=== PATIENT | male | born 1965 | race African-American/Black ===

== ENCOUNTER 2018-06-08 08:30 | Inpatient (IN) | payer OTHER ==
--- NOTE | 2018-06-08 09:10 | HP ---
CIWA Score - CIWA Score Nausea/Vomitin Muscle Tremors: 2 Anxiety: 2 Agitation: 2 Paroxysmal Sweats: 1-Minimal Palms Moist Orientation: 0-Oriented Tacttile Disturbances: 1-Very Mild Itch/Numbness Auditory Disturbances: 1-Very Mild Visual Disturbances: 1-Very Mild Sensitivity Headache: 2-Mild CIWA-Ar Total Score: 14 Admission ROS BHS - HPI Chief Complaint: i need help to stop drinking alcohol and cocaine Allergies/Adverse Reactions: Allergies Allergy/AdvReac Type Severity Reaction Status Date / Time eggs Allergy Uncoded 06/08/18 09:10 History of Present Illness: this 52 years old male with alcohol and cocaine dependence,seeking detox, withdrawal symptom,last treatment 2017 [facility], syncope alcohol related history of iddm,hiv since 2000,non compliance did not take medications for 2 months nicotine dependence multiple admissions in detox but keep relapsing major depression on med plan for [facility] after detox weight loss also had gerd and asthma longest sobriety 5 years seen in [facility] last night Exam Limitations: No Limitations - Ebola screening Have you traveled outside of the country in the last 21 days: No Have you had contact with anyone from an Ebola affected area: No Do you have a fever: No - Review of Systems Constitutional: Loss of Appetite, Malaise, Night Sweats, Changes in sleep, Weakness, Unintentional Wgt. Loss EENT: reports: Nose Congestion Respiratory: reports: No Symptoms reported Cardiac: reports: No Symptoms Reported GI: reports: Nausea, Poor Appetite, Abdominal cramping : reports: No Symptoms Reported Musculoskeletal: reports: Back Pain, Muscle Pain Neuro: reports: Headache, Tremors Endocrine: reports: No Symptoms Reported Hematology: reports: No Symptoms Reported, Other (hiv) Psychiatric: reports: No Sypmtoms Reported, Judgement Intact, Mood/Affect Appropiate, Orientated x3, Depressed Patient History - Patient Medical History Hx Anemia: No Hx Asthma: Yes Hx Chronic Obstructive Pulmonary Disease (COPD): No Hx Cancer: No Hx Cardiac Disorders: No Hx Congestive Heart Failure: No Hx Hypertension: No Hx Hypercholesterolemia: No Hx Pacemaker: No HX Cerebrovascular Accident: No Hx Seizures: No Hx Dementia: No Hx Diabetes: Yes (iddm) Hx Gastrointestinal Disorders: No Hx Liver Disease: No Hx Genitourinary Disorders: No Hx Sexually Transmitted Disorders: No Hx Renal Disease (ESRD): No Hx Thyroid Disease: No Hx Human Immunodeficiency Virus (HIV): Yes (since 2000 non compliance did not take medications for 2 months) Hx Hepatitis C: No Hx Depression: Yes Hx Suicide Attempt: No Hx Bipolar Disorder: No Hx Schizophrenia: No Other Medical History: no suicidal,no homicidal - Patient Surgical History Past Surgical History: Yes Other Surgical History: lymph node biposy left groin 2007 benign - PPD History Previous Implant?: Yes Documented Results: Negative w/o proof Implanted On Prior R Admission?: No PPD to be Administered?: Yes - Smoking Cessation Smoking history: Current every day smoker Aproximately how many cigarettes per day: 10 Cigars Per Day: 0 Hx Chewing Tobacco Use: No Initiated information on smoking cessation: Yes 'Breaking Loose' booklet given: 06/08/18 - Substance & Tx. History Hx Alcohol Use: Yes Hx Substance Use: Yes Substance Use Type: Alcohol, Cocaine Hx Substance Use Treatment: Yes ([address] [place] [address] in [place] for 90 days) - Substances Abused Alcohol Route: Oral Frequency: Daily Amount used: 2pints of jin/6 packs of beer 12 ozs Age of first use: 11 Date of Last Use: 06/07/18 Cocaine Route: Inhalation Frequency: Daily Amount used: 80$ Age of first use: 20 Date of Last Use: 06/07/18 Family Disease History - Family Disease History Family History: Denies Admission Physical Exam S - Vital Signs Vital Signs: Vital Signs Temperature 97.1 F L 06/08/18 09:12 Pulse Rate 83 06/08/18 09:12 Respiratory Rate 20 06/08/18 09:12 Blood Pressure 136/82 06/08/18 09:12 O2 Sat by Pulse Oximetry (%) - Physical General Appearance: Yes: Moderate Distress, Tremorous, Irritable, Sweating, Anxious HEENTM: Yes: Normal ENT Inspection, CANDI, Pharynx Normal Respiratory: Yes: Lungs Clear, Normal Breath Sounds, No Respiratory Distress Neck: Yes: Within Normal Limits, Supple, Trachea in good position Breast: Yes: Within Normal Limits Cardiology: Yes: Within Normal Limits, Regular Rhythm, Regular Rate, S1, S2 Abdominal: Yes: Normal Bowel Sounds, Non Tender, Soft Genitourinary: Yes: Within Normal Limits Back: Yes: Normal Inspection, Muscle Spasm Musculoskeletal: Yes: full range of Motion, Back pain Extremities: Yes: Tremors Neurological: Yes: reports analyst II-XII NML intact, Fully Oriented, Alert, Motor Strength 5/5 Integumentary: Yes: Dry Lymphatic: Yes: Within Normal Limits - Diagnostic (1) Alcohol dependence with uncomplicated withdrawal Current Visit: Yes Status: Acute (2) Cocaine dependence Current Visit: Yes Status: Acute (3) HIV (human immunodeficiency virus infection) Current Visit: Yes Status: Acute (4) IDDM (insulin dependent diabetes mellitus) Current Visit: Yes Status: Acute (5) Weight loss Current Visit: Yes Status: Acute (6) GERD (gastroesophageal reflux disease) Current Visit: Yes Status: Acute (7) Nicotine dependence Current Visit: Yes Status: Acute (8) Asthma Current Visit: Yes Status: Acute (9) Depression Current Visit: Yes Status: Acute Cleared for Admission BHS - Detox or Rehab S Level of Care: Medically Managed Detox Regimen/Protocol: Librium
[2018-06-08] MEDS ORDERED: guaiFENesin/D-METHORPHAN HB 10 ML UNIT-DOSE CUPS PO PRN (09:33)
[2018-06-08] MEDS ORDERED: LOPERAMIDE HCL 2 MG CAPSULE PO PRN (09:33)
[2018-06-08] MEDS ORDERED: P-EPHED 60MG/TRIPROLIDI 2.5MG TABLET PO PRN (09:33)
[2018-06-08] MEDS ORDERED: hydrOXYzine PAMOATE 50 MG CAPSULE (FP) PO PRN (09:33)
[2018-06-08] MEDS ORDERED: IBUPROFEN 400 MG TABLET (FP) PO PRN (09:33)
[2018-06-08] MEDS ORDERED: MAGNESIUM HYDROX 2400MG/30ML ORAL SUSPENSION 30 ML CUP PO PRN (09:33)
[2018-06-08] MEDS ORDERED: MAGNESIUM CITRATE 300 ML BOTTLE PO PRN (09:33)
[2018-06-08] MEDS ORDERED: MAG HYDROX/AL HYDROX/SIMETH 30 ML UNIT-DOSE CUP PO PRN (09:33)
[2018-06-08] MEDS ORDERED: chlordiazePOXIDE HCL 25 MG CAPSULE PO PRN (09:33)
[2018-06-08] MEDS ORDERED: ACETAMINOPHEN 325 MG TABLET (FP) PO PRN (09:33)
[2018-06-08] MEDS ORDERED: MENTHOL/PHENOL 1 EACH UD MM PRN (09:33)
[2018-06-08 09:35] VITALS: BMI 30.4
[2018-06-08] MEDS ORDERED: ALBUTEROL SO4 8 GM HFA INHALER IH PRN (10:48)
--- NOTE | 2018-06-08 11:54 | CONSULT ---
[facility] Psychiatric Consult - Data Date of interview: 06/08/18 Admission source: [facility] Identifying data: Patient is a 52 year old single male, without children, unemployed, domiciled, and is supported by [facility] benefits. This is patient's first admission to detox at [facility]. Patient admitted to for alcohol and cocaine dependence. Substance Abuse History: - Smoking Cessation. Smoking history: Current every day smoker. Aproximately how many cigarettes per day: 10. Cigars Per Day: 0. Hx Chewing Tobacco Use: No. Initiated information on smoking cessation: Yes. ' Breaking Loose' booklet given: 06/08/18. - Substance & Tx. History. Hx Alcohol Use: Yes. Hx Substance Use: Yes. Substance Use Type: Alcohol, Cocaine. Hx Substance Use Treatment: Yes ([address] [place] [address] in [place] for 90 days ). - Substances Abused. Alcohol. Route: Oral. Frequency: Daily. Amount used: 2pints of jin/6 packs of beer 12 ozs. Age of first use: 11. Date of Last Use: 06/07/18. Cocaine. Route: Inhalation. Frequency: Daily. Amount used: 80$. Age of first use: 20. Date of Last Use: 06/07/18 Medical History: Asthma, HIV Psychiatric History: Patient's first psychiatric contact was in 2007 at [facility] after he reported having difficulty accepting that he was HIV +. Diagnosis of MDD. He contines to receive outpatient psychiatric care at [facility]. He is prescribed Effexor ER 150mg + lamictal 25mg + Ambien 10mg. Pharmacy claims reviewed. Most recent electronic prescription was sent to patient's pharmacy on 05/16/18. He reports compliance to his medication regime. Patient denies h/o suicide attempt. Physical/Sexual Abuse/Trauma History: denies. Mental Status Exam - Mental Status Exam Alert and Oriented to: Time, Place, Person Cognitive Function: Good Patient Appearance: Well Groomed Mood: Sad, Euthymic Affect: Mood Congruent Patient Behavior: Appropriate, Cooperative Speech Pattern: Clear, Appropriate Voice Loudness: Normal Thought Process: Intact, Goal Oriented Thought Disorder: Not Present Hallucinations: Denies Suicidal Ideation: Denies Homicidal Ideation: Denies Insight/Judgement: Poor Sleep: Poorly Appetite: Fair Muscle strength/Tone: Normal Gait/Station: Normal Psychiatric Findings - Problem List ([place] 1, 2,3) (1) MDD (major depressive disorder) Current Visit: Yes Status: Chronic (2) Alcohol dependence with uncomplicated withdrawal Current Visit: Yes Status: Acute (3) Cocaine dependence Current Visit: Yes Status: Acute (4) Nicotine dependence Current Visit: Yes Status: Chronic - Initial Treatment Plan Initial Treatment Plan: Psychoeducation provided. Detoxification in progress. Will order Effexor 150mg ER + lamictal 25mg + ambien 10mg. Benefits and side effects discussed. Verbal consent given.
[2018-06-08] MEDS: chlordiazePOXIDE HCL 25 MG CAPSULE PO SCH ×3 (11:55→22:16)
[2018-06-08] MEDS: PRENATAL VITAMINS W/ FOLIC ACID TABLET (FP) PO SCH (11:55)
[2018-06-08] MEDS ORDERED: VENLAFAXINE HCL 150 MG E.R. CAPSULE PO SCH (12:00)
[2018-06-08] MEDS ORDERED: lamoTRIgine 25 MG TABLET PO SCH (12:00)
[2018-06-08] MEDS: NICOTINE 21 MG/24 HOURS TOPICAL PATCH TD SCH (12:07)
--- NOTE | 2018-06-08 15:10 | EKG ---
Test Reason : Blood Pressure : / mmHG Vent. Rate : 075 BPM Atrial Rate : 075 BPM P-R Int : 156 ms QRS Dur : 104 ms QT Int : 376 ms P-R-T Axes : 063 105 -33 degrees QTc Int : 419 ms NORMAL SINUS RHYTHM RIGHTWARD AXIS NONSPECIFIC T WAVE ABNORMALITY ABNORMAL ECG NO PREVIOUS ECGS AVAILABLE Confirmed by SARAH CORREA, BEAR ([id number]) on 06/08/2018 3:10:11 PM Referred By: Confirmed By:BEAR SMITH MD
[2018-06-08 21:07] LABS: URINE APPEARANCE TURBID; URINE BILIRUBIN NEGATIVE (<2.0 mg/dL); URINE COLOR YELLOW; URINE GLUCOSE (UA) 2+ (NEGATIVE); URINE KETONE NEGATIVE (NEGATIVE); URINE LEUK ESTERASE NEGATIVE (NEGATIVE); URINE NITRITE NEGATIVE (NEGATIVE); URINE PROTEIN 2+ (NEGATIVE)
[2018-06-08] MEDS: INSULIN (LEVEMIR) 100 UNITS/ML UNITS SQ SCH (21:18)
[2018-06-08] MEDS ORDERED: MELATONIN 5 MG TABLETS PO PRN (22:00)
[2018-06-08] MEDS ORDERED: INSULIN (LEVEMIR) 100 UNITS/ML UNITS SQ SCH (22:00)
[2018-06-08] MEDS: ZOLPIDEM TARTRATE 5 MG TABLET PO PRN (22:15)
[2018-06-08] MEDS: THIAMINE HCL 100 MG TABLET (FP) PO SCH (22:15)
[2018-06-08 22:31] LABS: URINE MUCUS FEW
[2018-06-09] MEDS: chlordiazePOXIDE HCL 25 MG CAPSULE PO SCH ×4 (06:46→22:54)
[2018-06-09] MEDS: PATIENT'S OWN MEDICATION (NON-FORMULARY) (Sitagliptin Phos/Metformin Hcl [Janumet Xr 100-1 PO SCH (07:48)
[2018-06-09] MEDS: NICOTINE 21 MG/24 HOURS TOPICAL PATCH TD SCH (10:04)
[2018-06-09] MEDS: LAMOTRIGINE 25 MG PO SCH (10:04)
[2018-06-09] MEDS: VENLAFAXINE HCL 150 MG PO SCH (10:04)
[2018-06-09] MEDS: FENOFIBRIC ACID 135 MG CAP PO SCH (10:04)
[2018-06-09] MEDS: MONTELUKAST NA 10 MG TABLET PO SCH (10:04)
[2018-06-09] MEDS: PRENATAL VITAMINS W/ FOLIC ACID TABLET (FP) PO SCH (10:04)
[2018-06-09] MEDS: NICOTINE POLACRILEX 2 MG GUM BUC PRN ×3 (10:33→21:30)
[2018-06-09 10:42] LABS: HEMOGLOBIN 13.8 GM/dL (11.7-16.9); MCH 31.5 pg (25.7-33.7); MCHC 32.8 g/dl (32.0-35.9); MEAN CELL VOLUME 96.2 fl (80-96); MEAN PLT VOLUME 9.4 fl (7.5-11.1); PLATELET COUNT 192 K/MM3 (134-434); RBC 4.37 M/mm3 (4.00-5.60); WHITE BLOOD COUNT 3.6 K/mm3 (4.0-10.0)
[2018-06-09 10:50] LABS: ALBUMIN 3.6 g/dl (3.4-5.0); ALK PHOS 109 U/L (45-117); ANION GAP 12 MMOL/L (8-16); BILIRUBIN,TOTAL 0.4 mg/dL (0.2-1); BLOOD UREA NITROGEN 14 mg/dL (7-18); CALCIUM 8.5 mg/dL (8.5-10.1); CHLORIDE 102 mmol/L (98-107); CO2 23 mmol/L (21-32); CREATININE 0.9 mg/dL (0.55-1.3); GLUCOSE,RANDOM 268 mg/dL (74-106); POTASSIUM 3.8 mmol/L (3.5-5.1); SGOT/AST 20 U/L (15-37); SGPT/ALT 20 U/L (13-61); SODIUM 137 mmol/L (136-145); TOT PROT 7.4 g/dl (6.4-8.2)
--- NOTE | 2018-06-09 13:39 | PN ---
S CIWA - CIWA Score Nausea/Vomitin Muscle Tremors: 4-Moderate,w/Arms Extend Anxiety: 4-Mod. Anxious/Guarded Agitation: 4-Moderately Restless Paroxysmal Sweats: 3 Orientation: 0-Oriented Tacttile Disturbances: 0-None Auditory Disturbances: 0-None Visual Disturbances: 0-None Headache: 0-None Present CIWA-Ar Total Score: 17 BHS Progress Note (SOAP) Subjective: Chills, fatigue, tremor, interrupted sleep. Patient requesting regular diet stating he doesn't want diabetic diet. Objective: 06/09/18 13:36 Last Vital Signs Temp Pulse Resp BP Pulse Ox 97.1 F L 85 17 125/75 06/09/18 09:48 06/09/18 09:48 06/09/18 09:48 06/09/18 09:48 Laboratory Tests 06/08/18 06/08/18 06/08/18 10:31 14:37 20:45 WBC RBC Hgb Hct MCV MCH MCHC RDW Plt Count MPV Sodium Potassium Chloride Carbon Dioxide Anion Gap BUN Creatinine Creat Clearance w eGFR POC Glucometer 250 211 Random Glucose Calcium Total Bilirubin AST ALT Alkaline Phosphatase Total Protein Albumin Urine Color Yellow Urine Appearance Turbid Urine pH 5.0 Ur Specific [place] 1.030 Urine Protein 2+ H Urine Glucose (UA) 2+ H Urine Ketones Negative Urine Blood Negative Urine Nitrite Negative Urine Bilirubin Negative Urine Urobilinogen 2.0 Ur Leukocyte Esterase Negative Urine WBC (Auto) 7 Urine RBC (Auto) 3 Urine Mucus Few RPR Titer 06/09/18 06/09/18 06/09/18 05:40 05:40 05:40 WBC 3.6 L RBC 4.37 Hgb 13.8 Hct 42.0 MCV 96.2 H MCH 31.5 MCHC 32.8 RDW 14.0 Plt Count 192 MPV 9.4 Sodium 137 Potassium 3.8 Chloride 102 Carbon Dioxide 23 Anion Gap 12 BUN 14 Creatinine 0.9 Creat Clearance w eGFR > 60 POC Glucometer Random Glucose 268 H Calcium 8.5 Total Bilirubin 0.4 AST 20 ALT 20 Alkaline Phosphatase 109 Total Protein 7.4 Albumin 3.6 Urine Color Urine Appearance Urine pH Ur Specific [place] Urine Protein Urine Glucose (UA) Urine Ketones Urine Blood Urine Nitrite Urine Bilirubin Urine Urobilinogen Ur Leukocyte Esterase Urine WBC (Auto) Urine RBC (Auto) Urine Mucus RPR Titer Nonreactive 06/09/18 07:37 WBC RBC Hgb Hct MCV MCH MCHC RDW Plt Count MPV Sodium Potassium Chloride Carbon Dioxide Anion Gap BUN Creatinine Creat Clearance w eGFR POC Glucometer 185 Random Glucose Calcium Total Bilirubin AST ALT Alkaline Phosphatase Total Protein Albumin Urine Color Urine Appearance Urine pH Ur Specific [place] Urine Protein Urine Glucose (UA) Urine Ketones Urine Blood Urine Nitrite Urine Bilirubin Urine Urobilinogen Ur Leukocyte Esterase Urine WBC (Auto) Urine RBC (Auto) Urine Mucus RPR Titer Labs reviewed: elevated glucose and abnormal UA Assessment: 06/09/18 13:36 Withdrawal symptoms Noted with hyperglycemia and abnormal UA Plan: Continue detox Hyperglycemia secondary to DMT2: continue diabetic regimen, encouraged diabetic diet and to avoid sugary intake Abnormal UA: encouraged PO water intake, repeat UA
[2018-06-09] MEDS ORDERED: INSULIN (LEVEMIR) 100 UNITS/ML UNITS SQ ONE (21:14)
[2018-06-09] MEDS: INSULIN (LEVEMIR) 100 UNITS/ML UNITS SQ SCH (21:31)
[2018-06-09] MEDS: THIAMINE HCL 100 MG TABLET (FP) PO SCH (22:53)
[2018-06-09] MEDS: ZOLPIDEM TARTRATE 5 MG TABLET PO PRN (22:53)
[2018-06-10] MEDS: chlordiazePOXIDE HCL 25 MG CAPSULE PO SCH (06:16)
[2018-06-10] MEDS: PATIENT'S OWN MEDICATION (NON-FORMULARY) (Sitagliptin Phos/Metformin Hcl [Janumet Xr 100-1 PO SCH (07:17)
[2018-06-10] MEDS: MONTELUKAST NA 10 MG TABLET PO SCH (10:10)
[2018-06-10] MEDS: LAMOTRIGINE 25 MG PO SCH (10:10)
[2018-06-10] MEDS: PRENATAL VITAMINS W/ FOLIC ACID TABLET (FP) PO SCH (10:10)
[2018-06-10] MEDS: VENLAFAXINE HCL 150 MG PO SCH (10:11)
[2018-06-10] MEDS: FENOFIBRIC ACID 135 MG CAP PO SCH (10:11)
[2018-06-10] MEDS: NICOTINE POLACRILEX 2 MG GUM BUC PRN ×3 (10:12→18:49)
[2018-06-10] MEDS: chlordiazePOXIDE 5 MG CAPSULE PO SCH ×3 (10:12→22:29)
--- NOTE | 2018-06-10 13:39 | PN ---
[facility] CIWA - CIWA Score Nausea/Vomitin-No Nausea/No Vomiting Muscle Tremors: 2 Anxiety: 3 Agitation: 3 Paroxysmal Sweats: 2 Orientation: 0-Oriented Tacttile Disturbances: 1-Very Mild Itch/Numbness Auditory Disturbances: 0-None Visual Disturbances: 1-Very Mild Sensitivity Headache: 0-None Present CIWA-Ar Total Score: 12 S Progress Note (SOAP) Subjective: fatigue, irritable, interrupted sleep, body aches Objective: 06/10/18 13:35 Vital Signs Temperature 96.7 F L 06/10/18 09:16 Pulse Rate 72 06/10/18 09:16 Respiratory Rate 18 06/10/18 09:16 Blood Pressure 121/86 06/10/18 09:16 O2 Sat by Pulse Oximetry (%) Laboratory Last Values WBC 3.6 K/mm3 (4.0-10.0) L 06/09/18 05:40 RBC 4.37 M/mm3 (4.00-5.60) 06/09/18 05:40 Hgb 13.8 GM/dL (11.7-16.9) 06/09/18 05:40 Hct 42.0 % (35.4-49) 06/09/18 05:40 MCV 96.2 fl (80-96) H 06/09/18 05:40 MCH 31.5 pg (25.7-33.7) 06/09/18 05:40 MCHC 32.8 g/dl (32.0-35.9) 06/09/18 05:40 RDW 14.0 % (11.9-15.9) 06/09/18 05:40 Plt Count 192 K/MM3 (134-434) 06/09/18 05:40 MPV 9.4 fl (7.5-11.1) 06/09/18 05:40 Sodium 137 mmol/L (136-145) 06/09/18 05:40 Potassium 3.8 mmol/L (3.5-5.1) 06/09/18 05:40 Chloride 102 mmol/L (98-107) 06/09/18 05:40 Carbon Dioxide 23 mmol/L (21-32) 06/09/18 05:40 Anion Gap 12 MMOL/L (8-16) 06/09/18 05:40 BUN 14 mg/dL (7-18) 06/09/18 05:40 Creatinine 0.9 mg/dL (0.55-1.3) 06/09/18 05:40 Creat Clearance w eGFR > 60 (>60) 06/09/18 05:40 POC Glucometer 167 UNITS (80-120) 06/10/18 11:45 Random Glucose 268 mg/dL (74-106) H 06/09/18 05:40 Calcium 8.5 mg/dL (8.5-10.1) 06/09/18 05:40 Total Bilirubin 0.4 mg/dL (0.2-1) 06/09/18 05:40 AST 20 U/L (15-37) 06/09/18 05:40 ALT 20 U/L (13-61) 06/09/18 05:40 Alkaline Phosphatase 109 U/L (45-117) 06/09/18 05:40 Total Protein 7.4 g/dl (6.4-8.2) 06/09/18 05:40 Albumin 3.6 g/dl (3.4-5.0) 06/09/18 05:40 Urine Color Yellow 06/08/18 14:37 Urine Appearance Turbid 06/08/18 14:37 Urine pH 5.0 (5.0-8.0) 06/08/18 14:37 Ur Specific [place] 1.030 (1.010-1.035) 06/08/18 14:37 Urine Protein 2+ (NEGATIVE) H 06/08/18 14:37 Urine Glucose (UA) 2+ (NEGATIVE) H 06/08/18 14:37 Urine Ketones Negative (NEGATIVE) 06/08/18 14:37 Urine Blood Negative (NEGATIVE) 06/08/18 14:37 Urine Nitrite Negative (NEGATIVE) 06/08/18 14:37 Urine Bilirubin Negative (<2.0 mg/dL) 06/08/18 14:37 Urine Urobilinogen 2.0 mg/dL (0.2-1.0) 06/08/18 14:37 Ur Leukocyte Esterase Negative (NEGATIVE) 06/08/18 14:37 Urine WBC (Auto) 7 /hpf (3-5) 06/08/18 14:37 Urine RBC (Auto) 3 /hpf (0-3) 06/08/18 14:37 Urine Mucus Few 06/08/18 14:37 RPR Titer Nonreactive (NONREACTIVE) 06/09/18 05:40 Aox3 no distress no adventitious breath sounds full rom ambulatory Assessment: 06/10/18 13:37 withdrawal sx Plan: increase po fluids continue detox continue to monitor
--- NOTE | 2018-06-10 19:05 | PN ---
BHS Progress Note Note: Pt's nicotine gum switched to the 4mg strength because pt states the 2mg was not helping. Declines nicotine patch because it makes him itch
[2018-06-10] MEDS: NICOTINE POLACRILEX 4 MG GUM BUC PRN (21:40)
[2018-06-10] MEDS: THIAMINE HCL 100 MG TABLET (FP) PO SCH (22:29)
[2018-06-10] MEDS: ZOLPIDEM TARTRATE 5 MG TABLET PO PRN (22:29)
[2018-06-10] MEDS: INSULIN (LEVEMIR) 100 UNITS/ML UNITS SQ SCH (22:32)
[2018-06-11] MEDS: NICOTINE POLACRILEX 4 MG GUM BUC PRN ×2 (06:24→16:45)
[2018-06-11] MEDS: PATIENT'S OWN MEDICATION (NON-FORMULARY) (Sitagliptin Phos/Metformin Hcl [Janumet Xr 100-1 PO SCH (06:24)
[2018-06-11] MEDS: chlordiazePOXIDE 5 MG CAPSULE PO SCH (06:24)
[2018-06-11] MEDS: VENLAFAXINE HCL 150 MG PO SCH (10:24)
[2018-06-11] MEDS: MONTELUKAST NA 10 MG TABLET PO SCH (10:24)
[2018-06-11] MEDS: PRENATAL VITAMINS W/ FOLIC ACID TABLET (FP) PO SCH (10:24)
[2018-06-11] MEDS: LAMOTRIGINE 25 MG PO SCH (10:24)
[2018-06-11] MEDS: FENOFIBRIC ACID 135 MG CAP PO SCH (10:24)
[2018-06-11] MEDS: chlordiazePOXIDE HCL 10 MG CAPSULE PO SCH ×3 (10:25→22:57)
[2018-06-11] MEDS ORDERED: Insulin (LOG) Aspart 100 UNITS/ML VIAL SQ ONE (11:30)
[2018-06-11] MEDS ORDERED: INSULIN SLIDING SCALE (NOVOLOG) 1 VIAL SQ ONE (13:23)
[2018-06-11] MEDS: INSULIN SLIDING SCALE (NOVOLOG) 1 VIAL SQ SCH (16:26)
--- NOTE | 2018-06-11 17:04 | PN ---
BHS Progress Note (SOAP) Subjective: Chills, interrupted sleep Objective: 06/11/18 17:02 Last Vital Signs Temp Pulse Resp BP Pulse Ox 97.7 F 85 18 109/73 06/11/18 13:40 06/11/18 13:40 06/11/18 13:40 06/11/18 13:40 Laboratory Tests 06/08/18 06/08/18 06/08/18 10:31 14:37 20:45 WBC RBC Hgb Hct MCV MCH MCHC RDW Plt Count MPV Sodium Potassium Chloride Carbon Dioxide Anion Gap BUN Creatinine Creat Clearance w eGFR POC Glucometer 250 211 Random Glucose Calcium Total Bilirubin AST ALT Alkaline Phosphatase Total Protein Albumin Urine Color Yellow Urine Appearance Turbid Urine pH 5.0 Ur Specific [place] 1.030 Urine Protein 2+ H Urine Glucose (UA) 2+ H Urine Ketones Negative Urine Blood Negative Urine Nitrite Negative Urine Bilirubin Negative Urine Urobilinogen 2.0 Ur Leukocyte Esterase Negative Urine WBC (Auto) 7 Urine RBC (Auto) 3 Urine Mucus Few RPR Titer 06/09/18 06/09/18 06/09/18 05:40 05:40 05:40 WBC 3.6 L RBC 4.37 Hgb 13.8 Hct 42.0 MCV 96.2 H MCH 31.5 MCHC 32.8 RDW 14.0 Plt Count 192 MPV 9.4 Sodium 137 Potassium 3.8 Chloride 102 Carbon Dioxide 23 Anion Gap 12 BUN 14 Creatinine 0.9 Creat Clearance w eGFR > 60 POC Glucometer Random Glucose 268 H Calcium 8.5 Total Bilirubin 0.4 AST 20 ALT 20 Alkaline Phosphatase 109 Total Protein 7.4 Albumin 3.6 Urine Color Urine Appearance Urine pH Ur Specific [place] Urine Protein Urine Glucose (UA) Urine Ketones Urine Blood Urine Nitrite Urine Bilirubin Urine Urobilinogen Ur Leukocyte Esterase Urine WBC (Auto) Urine RBC (Auto) Urine Mucus RPR Titer Nonreactive 06/09/18 06/09/18 06/10/18 07:37 21:01 07:13 WBC RBC Hgb Hct MCV MCH MCHC RDW Plt Count MPV Sodium Potassium Chloride Carbon Dioxide Anion Gap BUN Creatinine Creat Clearance w eGFR POC Glucometer 185 234 161 Random Glucose Calcium Total Bilirubin AST ALT Alkaline Phosphatase Total Protein Albumin Urine Color Urine Appearance Urine pH Ur Specific [place] Urine Protein Urine Glucose (UA) Urine Ketones Urine Blood Urine Nitrite Urine Bilirubin Urine Urobilinogen Ur Leukocyte Esterase Urine WBC (Auto) Urine RBC (Auto) Urine Mucus RPR Titer 06/10/18 06/10/18 06/10/18 11:45 16:27 21:51 WBC RBC Hgb Hct MCV MCH MCHC RDW Plt Count MPV Sodium Potassium Chloride Carbon Dioxide Anion Gap BUN Creatinine Creat Clearance w eGFR POC Glucometer 167 213 251 Random Glucose Calcium Total Bilirubin AST ALT Alkaline Phosphatase Total Protein Albumin Urine Color Urine Appearance Urine pH Ur Specific [place] Urine Protein Urine Glucose (UA) Urine Ketones Urine Blood Urine Nitrite Urine Bilirubin Urine Urobilinogen Ur Leukocyte Esterase Urine WBC (Auto) Urine RBC (Auto) Urine Mucus RPR Titer 06/11/18 06/11/18 06/11/18 06:16 11:08 16:23 WBC RBC Hgb Hct MCV MCH MCHC RDW Plt Count MPV Sodium Potassium Chloride Carbon Dioxide Anion Gap BUN Creatinine Creat Clearance w eGFR POC Glucometer 202 231 167 Random Glucose Calcium Total Bilirubin AST ALT Alkaline Phosphatase Total Protein Albumin Urine Color Urine Appearance Urine pH Ur Specific [place] Urine Protein Urine Glucose (UA) Urine Ketones Urine Blood Urine Nitrite Urine Bilirubin Urine Urobilinogen Ur Leukocyte Esterase Urine WBC (Auto) Urine RBC (Auto) Urine Mucus RPR Titer Labs reviewed Assessment: 06/11/18 17:02 Withdrawal symptoms Plan: Continue detox Encouraged PO water intake Patient with DMT2 with hyperglycemia. As per patient, he takes levemir at home along with insulin humalog sliding scale coverage ac meals starting at FS of 150 in which he gets 2 units. Sliding scale insulin coverage ordered.
[2018-06-11] MEDS: INSULIN (LEVEMIR) 100 UNITS/ML UNITS SQ SCH (21:54)
[2018-06-11] MEDS: ZOLPIDEM TARTRATE 5 MG TABLET PO PRN (21:57)
[2018-06-11] MEDS: THIAMINE HCL 100 MG TABLET (FP) PO SCH (21:57)
[2018-06-12] MEDS: chlordiazePOXIDE HCL 10 MG CAPSULE PO SCH (06:56)
[2018-06-12] MEDS: INSULIN SLIDING SCALE (NOVOLOG) 1 VIAL SQ SCH ×3 (07:54→17:45)
[2018-06-12] MEDS: PATIENT'S OWN MEDICATION (NON-FORMULARY) (Sitagliptin Phos/Metformin Hcl [Janumet Xr 100-1 PO SCH (07:54)
[2018-06-12] MEDS: NICOTINE POLACRILEX 4 MG GUM BUC PRN ×3 (09:40→20:35)
[2018-06-12] MEDS: PRENATAL VITAMINS W/ FOLIC ACID TABLET (FP) PO SCH (10:08)
[2018-06-12] MEDS: FENOFIBRIC ACID 135 MG CAP PO SCH (10:09)
[2018-06-12] MEDS: LAMOTRIGINE 25 MG PO SCH (10:09)
[2018-06-12] MEDS: MONTELUKAST NA 10 MG TABLET PO SCH (10:10)
[2018-06-12] MEDS: VENLAFAXINE HCL 150 MG PO SCH (13:13)
--- NOTE | 2018-06-12 13:36 | PN ---
S Progress Note (SOAP) Subjective: Chills, interrupted sleep. Patient can be discharged on 06/13 or 06/14. He requested to be discharged on 06/14 so that he can have time to make outside follow up arrangement with the help of his counselor from [facility]. Objective: 06/12/18 13:35 Last Vital Signs Temp Pulse Resp BP Pulse Ox 98.1 F 79 18 120/73 06/12/18 13:20 06/12/18 13:20 06/12/18 13:20 06/12/18 13:20 Laboratory Tests 06/08/18 06/08/18 06/08/18 10:31 14:37 20:45 WBC RBC Hgb Hct MCV MCH MCHC RDW Plt Count MPV Sodium Potassium Chloride Carbon Dioxide Anion Gap BUN Creatinine Creat Clearance w eGFR POC Glucometer 250 211 Random Glucose Calcium Total Bilirubin AST ALT Alkaline Phosphatase Total Protein Albumin Urine Color Yellow Urine Appearance Turbid Urine pH 5.0 Ur Specific [place] 1.030 Urine Protein 2+ H Urine Glucose (UA) 2+ H Urine Ketones Negative Urine Blood Negative Urine Nitrite Negative Urine Bilirubin Negative Urine Urobilinogen 2.0 Ur Leukocyte Esterase Negative Urine WBC (Auto) 7 Urine RBC (Auto) 3 Urine Mucus Few RPR Titer 06/09/18 06/09/18 06/09/18 05:40 05:40 05:40 WBC 3.6 L RBC 4.37 Hgb 13.8 Hct 42.0 MCV 96.2 H MCH 31.5 MCHC 32.8 RDW 14.0 Plt Count 192 MPV 9.4 Sodium 137 Potassium 3.8 Chloride 102 Carbon Dioxide 23 Anion Gap 12 BUN 14 Creatinine 0.9 Creat Clearance w eGFR > 60 POC Glucometer Random Glucose 268 H Calcium 8.5 Total Bilirubin 0.4 AST 20 ALT 20 Alkaline Phosphatase 109 Total Protein 7.4 Albumin 3.6 Urine Color Urine Appearance Urine pH Ur Specific [place] Urine Protein Urine Glucose (UA) Urine Ketones Urine Blood Urine Nitrite Urine Bilirubin Urine Urobilinogen Ur Leukocyte Esterase Urine WBC (Auto) Urine RBC (Auto) Urine Mucus RPR Titer Nonreactive 06/09/18 06/09/18 06/10/18 07:37 21:01 07:13 WBC RBC Hgb Hct MCV MCH MCHC RDW Plt Count MPV Sodium Potassium Chloride Carbon Dioxide Anion Gap BUN Creatinine Creat Clearance w eGFR POC Glucometer 185 234 161 Random Glucose Calcium Total Bilirubin AST ALT Alkaline Phosphatase Total Protein Albumin Urine Color Urine Appearance Urine pH Ur Specific [place] Urine Protein Urine Glucose (UA) Urine Ketones Urine Blood Urine Nitrite Urine Bilirubin Urine Urobilinogen Ur Leukocyte Esterase Urine WBC (Auto) Urine RBC (Auto) Urine Mucus RPR Titer 06/10/18 06/10/18 06/10/18 11:45 16:27 21:51 WBC RBC Hgb Hct MCV MCH MCHC RDW Plt Count MPV Sodium Potassium Chloride Carbon Dioxide Anion Gap BUN Creatinine Creat Clearance w eGFR POC Glucometer 167 213 251 Random Glucose Calcium Total Bilirubin AST ALT Alkaline Phosphatase Total Protein Albumin Urine Color Urine Appearance Urine pH Ur Specific [place] Urine Protein Urine Glucose (UA) Urine Ketones Urine Blood Urine Nitrite Urine Bilirubin Urine Urobilinogen Ur Leukocyte Esterase Urine WBC (Auto) Urine RBC (Auto) Urine Mucus RPR Titer 06/11/18 06/11/18 06/11/18 06:16 11:08 16:23 WBC RBC Hgb Hct MCV MCH MCHC RDW Plt Count MPV Sodium Potassium Chloride Carbon Dioxide Anion Gap BUN Creatinine Creat Clearance w eGFR POC Glucometer 202 231 167 Random Glucose Calcium Total Bilirubin AST ALT Alkaline Phosphatase Total Protein Albumin Urine Color Urine Appearance Urine pH Ur Specific [place] Urine Protein Urine Glucose (UA) Urine Ketones Urine Blood Urine Nitrite Urine Bilirubin Urine Urobilinogen Ur Leukocyte Esterase Urine WBC (Auto) Urine RBC (Auto) Urine Mucus RPR Titer 06/11/18 06/12/18 20:54 11:36 WBC RBC Hgb Hct MCV MCH MCHC RDW Plt Count MPV Sodium Potassium Chloride Carbon Dioxide Anion Gap BUN Creatinine Creat Clearance w eGFR POC Glucometer 330 219 Random Glucose Calcium Total Bilirubin AST ALT Alkaline Phosphatase Total Protein Albumin Urine Color Urine Appearance Urine pH Ur Specific [place] Urine Protein Urine Glucose (UA) Urine Ketones Urine Blood Urine Nitrite Urine Bilirubin Urine Urobilinogen Ur Leukocyte Esterase Urine WBC (Auto) Urine RBC (Auto) Urine Mucus RPR Titer Labs reviewed Assessment: 06/12/18 13:35 Withdrawal symptoms Plan: Continue detox Encouraged PO water intake
[2018-06-12] MEDS ORDERED: INSULIN SLIDING SCALE (NOVOLOG) 1 VIAL SQ ONE (16:46)
[2018-06-12] MEDS: INSULIN (LEVEMIR) 100 UNITS/ML UNITS SQ SCH (22:01)
[2018-06-12] MEDS: THIAMINE HCL 100 MG TABLET (FP) PO SCH (22:12)
[2018-06-12] MEDS: ZOLPIDEM TARTRATE 5 MG TABLET PO PRN (22:12)
[2018-06-13] MEDS: PATIENT'S OWN MEDICATION (NON-FORMULARY) (Sitagliptin Phos/Metformin Hcl [Janumet Xr 100-1 PO SCH (07:10)
[2018-06-13] MEDS: INSULIN SLIDING SCALE (NOVOLOG) 1 VIAL SQ SCH ×3 (07:10→16:47)
[2018-06-13] MEDS ORDERED: INSULIN SLIDING SCALE (NOVOLOG) 1 VIAL SQ ONE (07:14)
[2018-06-13] MEDS: VENLAFAXINE HCL 150 MG PO SCH (10:37)
[2018-06-13] MEDS: LAMOTRIGINE 25 MG PO SCH (10:37)
[2018-06-13] MEDS: PRENATAL VITAMINS W/ FOLIC ACID TABLET (FP) PO SCH (10:37)
[2018-06-13] MEDS: MONTELUKAST NA 10 MG TABLET PO SCH (10:37)
[2018-06-13] MEDS: FENOFIBRIC ACID 135 MG CAP PO SCH (10:38)
[2018-06-13] MEDS: NICOTINE POLACRILEX 4 MG GUM BUC PRN ×3 (10:39→22:58)
[2018-06-13] MEDS ORDERED: COLLOIDAL OATMEAL 1 BAR EACH TP PRN (10:41)
[2018-06-13] MEDS: AMMONIUM LACTATE 12% LOTION 225 GM BOTTLE TP SCH ×2 (12:15→23:00)
--- NOTE | 2018-06-13 13:31 | PN ---
S Progress Note (SOAP) Subjective: Anxious, sweating, interrupted sleep Objective: 06/13/18 13:30 Last Vital Signs Temp Pulse Resp BP Pulse Ox 98.4 F 84 20 96/62 06/13/18 07:43 06/13/18 07:43 06/13/18 07:43 06/13/18 07:43 Hypotension noted Laboratory Tests 06/08/18 06/08/18 06/08/18 10:31 14:37 20:45 WBC RBC Hgb Hct MCV MCH MCHC RDW Plt Count MPV Sodium Potassium Chloride Carbon Dioxide Anion Gap BUN Creatinine Creat Clearance w eGFR POC Glucometer 250 211 Random Glucose Calcium Total Bilirubin AST ALT Alkaline Phosphatase Total Protein Albumin Urine Color Yellow Urine Appearance Turbid Urine pH 5.0 Ur Specific [place] 1.030 Urine Protein 2+ H Urine Glucose (UA) 2+ H Urine Ketones Negative Urine Blood Negative Urine Nitrite Negative Urine Bilirubin Negative Urine Urobilinogen 2.0 Ur Leukocyte Esterase Negative Urine WBC (Auto) 7 Urine RBC (Auto) 3 Urine Mucus Few RPR Titer 06/09/18 06/09/18 06/09/18 05:40 05:40 05:40 WBC 3.6 L RBC 4.37 Hgb 13.8 Hct 42.0 MCV 96.2 H MCH 31.5 MCHC 32.8 RDW 14.0 Plt Count 192 MPV 9.4 Sodium 137 Potassium 3.8 Chloride 102 Carbon Dioxide 23 Anion Gap 12 BUN 14 Creatinine 0.9 Creat Clearance w eGFR > 60 POC Glucometer Random Glucose 268 H Calcium 8.5 Total Bilirubin 0.4 AST 20 ALT 20 Alkaline Phosphatase 109 Total Protein 7.4 Albumin 3.6 Urine Color Urine Appearance Urine pH Ur Specific [place] Urine Protein Urine Glucose (UA) Urine Ketones Urine Blood Urine Nitrite Urine Bilirubin Urine Urobilinogen Ur Leukocyte Esterase Urine WBC (Auto) Urine RBC (Auto) Urine Mucus RPR Titer Nonreactive 06/09/18 06/09/18 06/10/18 07:37 21:01 07:13 WBC RBC Hgb Hct MCV MCH MCHC RDW Plt Count MPV Sodium Potassium Chloride Carbon Dioxide Anion Gap BUN Creatinine Creat Clearance w eGFR POC Glucometer 185 234 161 Random Glucose Calcium Total Bilirubin AST ALT Alkaline Phosphatase Total Protein Albumin Urine Color Urine Appearance Urine pH Ur Specific [place] Urine Protein Urine Glucose (UA) Urine Ketones Urine Blood Urine Nitrite Urine Bilirubin Urine Urobilinogen Ur Leukocyte Esterase Urine WBC (Auto) Urine RBC (Auto) Urine Mucus RPR Titer 06/10/18 06/10/18 06/10/18 11:45 16:27 21:51 WBC RBC Hgb Hct MCV MCH MCHC RDW Plt Count MPV Sodium Potassium Chloride Carbon Dioxide Anion Gap BUN Creatinine Creat Clearance w eGFR POC Glucometer 167 213 251 Random Glucose Calcium Total Bilirubin AST ALT Alkaline Phosphatase Total Protein Albumin Urine Color Urine Appearance Urine pH Ur Specific [place] Urine Protein Urine Glucose (UA) Urine Ketones Urine Blood Urine Nitrite Urine Bilirubin Urine Urobilinogen Ur Leukocyte Esterase Urine WBC (Auto) Urine RBC (Auto) Urine Mucus RPR Titer 06/11/18 06/11/18 06/11/18 06:16 11:08 16:23 WBC RBC Hgb Hct MCV MCH MCHC RDW Plt Count MPV Sodium Potassium Chloride Carbon Dioxide Anion Gap BUN Creatinine Creat Clearance w eGFR POC Glucometer 202 231 167 Random Glucose Calcium Total Bilirubin AST ALT Alkaline Phosphatase Total Protein Albumin Urine Color Urine Appearance Urine pH Ur Specific [place] Urine Protein Urine Glucose (UA) Urine Ketones Urine Blood Urine Nitrite Urine Bilirubin Urine Urobilinogen Ur Leukocyte Esterase Urine WBC (Auto) Urine RBC (Auto) Urine Mucus RPR Titer 06/11/18 06/12/18 06/12/18 20:54 11:36 16:19 WBC RBC Hgb Hct MCV MCH MCHC RDW Plt Count MPV Sodium Potassium Chloride Carbon Dioxide Anion Gap BUN Creatinine Creat Clearance w eGFR POC Glucometer 330 219 225 Random Glucose Calcium Total Bilirubin AST ALT Alkaline Phosphatase Total Protein Albumin Urine Color Urine Appearance Urine pH Ur Specific [place] Urine Protein Urine Glucose (UA) Urine Ketones Urine Blood Urine Nitrite Urine Bilirubin Urine Urobilinogen Ur Leukocyte Esterase Urine WBC (Auto) Urine RBC (Auto) Urine Mucus RPR Titer 06/12/18 06/13/18 06/13/18 21:11 07:06 10:41 WBC RBC Hgb Hct MCV MCH MCHC RDW Plt Count MPV Sodium Potassium Chloride Carbon Dioxide Anion Gap BUN Creatinine Creat Clearance w eGFR POC Glucometer 285 263 169 Random Glucose Calcium Total Bilirubin AST ALT Alkaline Phosphatase Total Protein Albumin Urine Color Urine Appearance Urine pH Ur Specific [place] Urine Protein Urine Glucose (UA) Urine Ketones Urine Blood Urine Nitrite Urine Bilirubin Urine Urobilinogen Ur Leukocyte Esterase Urine WBC (Auto) Urine RBC (Auto) Urine Mucus RPR Titer Labs reviewed Assessment: 06/13/18 13:49 Withdrawal symptoms Noted with hypotension Plan: Continue detox Hypotension: asymptomatic, encouraged PO water intake Patient requested aveeno soap and lac hydrin lotion stating he is allergic to hospital soap and his skin is dry and needs special lotion
[2018-06-13] MEDS ORDERED: SIMETHICONE 80 MG TAB.CHEW (FP) PO PRN (14:02)
[2018-06-13] MEDS: INSULIN (LEVEMIR) 100 UNITS/ML UNITS SQ SCH (22:02)
[2018-06-13] MEDS: THIAMINE HCL 100 MG TABLET (FP) PO SCH (22:56)
[2018-06-13] MEDS: ZOLPIDEM TARTRATE 5 MG TABLET PO PRN (22:59)
[2018-06-13 23:19] VITALS: BP 107/67; TEMP 97.8
[2018-06-14] MEDS: INSULIN SLIDING SCALE (NOVOLOG) 1 VIAL SQ SCH (06:42)
[2018-06-14] MEDS: PATIENT'S OWN MEDICATION (NON-FORMULARY) (Sitagliptin Phos/Metformin Hcl [Janumet Xr 100-1 PO SCH (06:43)
[2018-06-14] MEDS ORDERED: INSULIN SLIDING SCALE (NOVOLOG) 1 VIAL SQ ONE (06:45)
[2018-06-14] MEDS: NICOTINE POLACRILEX 4 MG GUM BUC PRN (06:48)
[2018-06-14 08:56] VITALS: PULSE 85
--- NOTE | 2018-06-14 11:06 | DS ---
[facility] Detox Discharge Summary Admission Date: 06/08/18 Discharge Date: 06/14/18 - History Present History: Alcohol Dependence Pertinent Past History: DMT2 Alcohol dependence Asthma Cocaine dependence HIV Nicotine dependence - Physical Exam Results Vital Signs: Vital Signs Temperature 97.8 F 06/14/18 05:00 Pulse Rate 85 06/14/18 05:00 Respiratory Rate 18 06/14/18 05:00 Blood Pressure 107/67 06/14/18 05:00 O2 Sat by Pulse Oximetry (%) Pertinent Admission Physical Exam Findings: Withdrawal symptoms Laboratory Tests 06/08/18 06/08/18 06/08/18 10:31 14:37 20:45 WBC RBC Hgb Hct MCV MCH MCHC RDW Plt Count MPV Sodium Potassium Chloride Carbon Dioxide Anion Gap BUN Creatinine Creat Clearance w eGFR POC Glucometer 250 211 Random Glucose Calcium Total Bilirubin AST ALT Alkaline Phosphatase Total Protein Albumin Urine Color Yellow Urine Appearance Turbid Urine pH 5.0 Ur Specific [place] 1.030 Urine Protein 2+ H Urine Glucose (UA) 2+ H Urine Ketones Negative Urine Blood Negative Urine Nitrite Negative Urine Bilirubin Negative Urine Urobilinogen 2.0 Ur Leukocyte Esterase Negative Urine WBC (Auto) 7 Urine RBC (Auto) 3 Urine Mucus Few RPR Titer 06/09/18 06/09/18 06/09/18 05:40 05:40 05:40 WBC 3.6 L RBC 4.37 Hgb 13.8 Hct 42.0 MCV 96.2 H MCH 31.5 MCHC 32.8 RDW 14.0 Plt Count 192 MPV 9.4 Sodium 137 Potassium 3.8 Chloride 102 Carbon Dioxide 23 Anion Gap 12 BUN 14 Creatinine 0.9 Creat Clearance w eGFR > 60 POC Glucometer Random Glucose 268 H Calcium 8.5 Total Bilirubin 0.4 AST 20 ALT 20 Alkaline Phosphatase 109 Total Protein 7.4 Albumin 3.6 Urine Color Urine Appearance Urine pH Ur Specific [place] Urine Protein Urine Glucose (UA) Urine Ketones Urine Blood Urine Nitrite Urine Bilirubin Urine Urobilinogen Ur Leukocyte Esterase Urine WBC (Auto) Urine RBC (Auto) Urine Mucus RPR Titer Nonreactive 06/09/18 06/09/18 06/10/18 07:37 21:01 07:13 WBC RBC Hgb Hct MCV MCH MCHC RDW Plt Count MPV Sodium Potassium Chloride Carbon Dioxide Anion Gap BUN Creatinine Creat Clearance w eGFR POC Glucometer 185 234 161 Random Glucose Calcium Total Bilirubin AST ALT Alkaline Phosphatase Total Protein Albumin Urine Color Urine Appearance Urine pH Ur Specific [place] Urine Protein Urine Glucose (UA) Urine Ketones Urine Blood Urine Nitrite Urine Bilirubin Urine Urobilinogen Ur Leukocyte Esterase Urine WBC (Auto) Urine RBC (Auto) Urine Mucus RPR Titer 06/10/18 06/10/18 06/10/18 11:45 16:27 21:51 WBC RBC Hgb Hct MCV MCH MCHC RDW Plt Count MPV Sodium Potassium Chloride Carbon Dioxide Anion Gap BUN Creatinine Creat Clearance w eGFR POC Glucometer 167 213 251 Random Glucose Calcium Total Bilirubin AST ALT Alkaline Phosphatase Total Protein Albumin Urine Color Urine Appearance Urine pH Ur Specific [place] Urine Protein Urine Glucose (UA) Urine Ketones Urine Blood Urine Nitrite Urine Bilirubin Urine Urobilinogen Ur Leukocyte Esterase Urine WBC (Auto) Urine RBC (Auto) Urine Mucus RPR Titer 06/11/18 06/11/18 06/11/18 06:16 11:08 16:23 WBC RBC Hgb Hct MCV MCH MCHC RDW Plt Count MPV Sodium Potassium Chloride Carbon Dioxide Anion Gap BUN Creatinine Creat Clearance w eGFR POC Glucometer 202 231 167 Random Glucose Calcium Total Bilirubin AST ALT Alkaline Phosphatase Total Protein Albumin Urine Color Urine Appearance Urine pH Ur Specific [place] Urine Protein Urine Glucose (UA) Urine Ketones Urine Blood Urine Nitrite Urine Bilirubin Urine Urobilinogen Ur Leukocyte Esterase Urine WBC (Auto) Urine RBC (Auto) Urine Mucus RPR Titer 06/11/18 06/12/18 06/12/18 20:54 11:36 16:19 WBC RBC Hgb Hct MCV MCH MCHC RDW Plt Count MPV Sodium Potassium Chloride Carbon Dioxide Anion Gap BUN Creatinine Creat Clearance w eGFR POC Glucometer 330 219 225 Random Glucose Calcium Total Bilirubin AST ALT Alkaline Phosphatase Total Protein Albumin Urine Color Urine Appearance Urine pH Ur Specific [place] Urine Protein Urine Glucose (UA) Urine Ketones Urine Blood Urine Nitrite Urine Bilirubin Urine Urobilinogen Ur Leukocyte Esterase Urine WBC (Auto) Urine RBC (Auto) Urine Mucus RPR Titer 06/12/18 06/13/18 06/13/18 21:11 07:06 10:41 WBC RBC Hgb Hct MCV MCH MCHC RDW Plt Count MPV Sodium Potassium Chloride Carbon Dioxide Anion Gap BUN Creatinine Creat Clearance w eGFR POC Glucometer 285 263 169 Random Glucose Calcium Total Bilirubin AST ALT Alkaline Phosphatase Total Protein Albumin Urine Color Urine Appearance Urine pH Ur Specific [place] Urine Protein Urine Glucose (UA) Urine Ketones Urine Blood Urine Nitrite Urine Bilirubin Urine Urobilinogen Ur Leukocyte Esterase Urine WBC (Auto) Urine RBC (Auto) Urine Mucus RPR Titer 06/13/18 06/13/18 06/14/18 16:20 21:16 06:40 WBC RBC Hgb Hct MCV MCH MCHC RDW Plt Count MPV Sodium Potassium Chloride Carbon Dioxide Anion Gap BUN Creatinine Creat Clearance w eGFR POC Glucometer 234 341 225 Random Glucose Calcium Total Bilirubin AST ALT Alkaline Phosphatase Total Protein Albumin Urine Color Urine Appearance Urine pH Ur Specific [place] Urine Protein Urine Glucose (UA) Urine Ketones Urine Blood Urine Nitrite Urine Bilirubin Urine Urobilinogen Ur Leukocyte Esterase Urine WBC (Auto) Urine RBC (Auto) Urine Mucus RPR Titer Labs reviewed: abnormal UA, patient instructed to follow up with PCP for further evaluation, encouraged to drink more water. UA was reordered but patient refused to provide specimen. - Treatment Hospital Course: Detox Protocol Followed, Detoxed Safely, Responded well, Discharged Condition Good - Medication Discharge Medications: Ambulatory Orders Fenofibrate Nanocrystallized [Fenofibrate] 145 mg PO DAILY 06/08/18 Insulin (Levemir) [Levemir Vial] 10 unit SQ HS 06/08/18 Lamotrigine [Lamictal -] 25 mg PO DAILY 06/08/18 Montelukast Sodium [Singulair] 10 mg PO DAILY 06/08/18 Omeprazole 20 mg PO DAILY 06/08/18 Sitagliptin Phos/Metformin HCl [Janumet Xr 100-1,000 mg Tablet] 1 tab PO DAILY 06/08/18 Venlafaxine HCl ER [Effexor Xr -] 150 mg PO DAILY 06/08/18 - Diagnosis (1) Abnormal finding on urinalysis Status: Acute (2) Type 2 diabetes mellitus with hyperglycemia Status: Chronic (3) Alcohol dependence with uncomplicated withdrawal Status: Acute (4) Asthma Status: Chronic (5) Cocaine dependence Status: Chronic (6) Depression Status: Chronic (7) HIV (human immunodeficiency virus infection) Status: Chronic (8) Nicotine dependence Status: Chronic (9) HLD (hyperlipidemia) Status: Chronic - AMA Did Patient Leave Against Medical Advice: No (F/U with your PCP within 1-2 weeks )
== END 2018-06-14 08:33 | disposition home or self-care (01) | DRG 897 ==
LOC: YASAS 08:30 → Y3N 09:33
PROC: HZ2ZZZZ Detoxification Services for Substance Abuse Treatment (ICD-10-PCS; principal; 2018-06-08)
DX: F10.230 Alcohol dependence with withdrawal, uncomplicated (principal); F14.20 Cocaine dependence, uncomplicated; F33.9 Major depressive disorder, recurrent, unspecified; F17.210 Nicotine dependence, cigarettes, uncomplicated; E11.65 Type 2 diabetes mellitus with hyperglycemia; Z21 Asymptomatic human immunodeficiency virus [HIV] infection status; J45.909 Unspecified asthma, uncomplicated; E78.5 Hyperlipidemia, unspecified; R82.90 Unspecified abnormal findings in urine; I95.9 Hypotension, unspecified; Z79.4 Long term (current) use of insulin; Z91.14 Patient's other noncompliance with medication regimen
CPT/HCPCS: 36415; 80053; 81003; 81015; 82962; 85027; 86593; 93005; 93010

== ENCOUNTER 2022-12-09 12:16 | Inpatient (IN) | payer OTHER ==
[2022-12-09 13:19] VITALS: BMI 31.3
[2022-12-09] MEDS ORDERED: ACETAMINOPHEN 325 MG TABLET (FP) PO PRN (14:12)
[2022-12-09] MEDS ORDERED: BENZONATATE 200 MG CAPSULE PO PRN (14:12)
[2022-12-09] MEDS ORDERED: chlordiazePOXIDE HCL 25 MG CAPSULE PO PRN (14:12)
[2022-12-09] MEDS ORDERED: NICOTINE 10 MG CARTRIDGE (INHALER) IH PRN (14:12)
[2022-12-09] MEDS ORDERED: MAGNESIUM HYDROX 2400MG/30ML ORAL SUSPENSION 30 ML CUP PO PRN (14:12)
[2022-12-09] MEDS ORDERED: guaiFENesin 600 MG TABLET.ER (FP) PO PRN (14:12)
[2022-12-09] MEDS ORDERED: hydrOXYzine PAMOATE 25 MG CAPSULE (FP) PO PRN (14:12)
[2022-12-09] MEDS ORDERED: MAG HYDROX/AL HYDROX/SIMETH 30 ML UNIT-DOSE CUP PO PRN (14:12)
[2022-12-09] MEDS ORDERED: BENZOCAINE/MENTHOL (CHLORASEPTIC ) LOZENGE MM PRN (14:12)
[2022-12-09] MEDS ORDERED: BISMUTH SUBSALICYLATE 262 MG/15 ML BTL PO PRN (14:12)
[2022-12-09] MEDS ORDERED: NALOXONE HCL (KLOXXADO) 8 MG SPRAY NS PRN (14:12)
[2022-12-09] MEDS ORDERED: DICYCLOMINE HCL 10 MG CAPSULE PO PRN (14:12)
[2022-12-09] MEDS ORDERED: LOPERAMIDE HCL 2 MG CAPSULE PO PRN (14:12)
[2022-12-09] MEDS ORDERED: POLYETHYLENE GLYCOL (HEALTHYLAX) 3350 17 GM PACKET PO PRN (14:12)
[2022-12-09] MEDS ORDERED: METHOCARBAMOL 500 MG TABLET PO PRN (14:12)
[2022-12-09] MEDS ORDERED: NALOXONE HCL 0.4 MG/ML VIAL IM PRN (14:12)
[2022-12-09] MEDS ORDERED: ONDANSETRON *ODT* 4 MG TABLET SL PRN (14:12)
[2022-12-09] MEDS ORDERED: IBUPROFEN 400 MG TABLET (FP) PO PRN (14:12)
[2022-12-09] MEDS: NICOTINE 21 MG/24 HOURS TOPICAL PATCH TD SCH (15:35)
[2022-12-09] MEDS: PRENATAL VITAMINS W/ FOLIC ACID TABLET (FP) PO SCH (15:35)
[2022-12-09] MEDS: chlordiazePOXIDE HCL 25 MG CAPSULE PO SCH ×2 (17:55→22:39)
[2022-12-09 17:56] LABS: HEMATOCRIT 43.1 % (35.4-49); HEMOGLOBIN 14.4 GM/dL (11.7-16.9); MCH 31.1 pg (25.7-33.7); MCHC 33.5 g/dl (32.0-35.9); MEAN CELL VOLUME 92.9 fl (80-96); PLATELET COUNT 127 10^3/uL (134-434); RBC 4.64 M/mm3 (4.00-5.60); WHITE BLOOD COUNT 3.1 K/mm3 (4.0-10.0)
[2022-12-09] MEDS: IBUPROFEN 600 MG TABLET (FP) PO PRN (17:59)
[2022-12-09 18:32] LABS: ALBUMIN 3.2 g/dl (3.4-5.0); BILIRUBIN,TOTAL 0.4 mg/dL (0.2-1); BLOOD UREA NITROGEN 9.5 mg/dL (7-18); CALCIUM 8.6 mg/dL (8.5-10.1); CREATININE 0.9 mg/dL (0.55-1.3); TOT PROT 7.3 g/dl (6.4-8.2)
[2022-12-09] MEDS ORDERED: MELATONIN 5 MG TABLETS PO SCH (22:00)
[2022-12-09] MEDS: THIAMINE HCL 100 MG TABLET (FP) PO SCH (22:39)
[2022-12-09] MEDS: INSULIN (LEVEMIR) 100 UNITS/ML UNITS SQ SCH (23:19)
[2022-12-09] MEDS ORDERED: ALBUTEROL SO4 HFA INHALER IH PRN (23:25)
[2022-12-10] MEDS: ALBUTEROL SO4 2.5/IPRATROPIUM 0.5 INH SOL 3 ML VIAL.NEB. NEB SCH ×4 (00:05→16:00)
[2022-12-10] MEDS: chlordiazePOXIDE HCL 25 MG CAPSULE PO SCH ×6 (06:06→22:47)
[2022-12-10] MEDS: FENOFIBRIC ACID 135 MG CAP PO SCH (10:34)
[2022-12-10] MEDS: PRENATAL VITAMINS W/ FOLIC ACID TABLET (FP) PO SCH (10:34)
[2022-12-10] MEDS: MONTELUKAST NA 10 MG TABLET PO SCH (10:34)
[2022-12-10] MEDS: lamoTRIgine 25 MG TABLET PO SCH (10:34)
[2022-12-10] MEDS: PANTOPRAZOLE 20 MG TABLET PO SCH (10:34)
[2022-12-10] MEDS: NICOTINE 21 MG/24 HOURS TOPICAL PATCH TD SCH (10:40)
[2022-12-10] MEDS ORDERED: ALBUTEROL SO4 HFA INHALER IH PRN (14:03)
[2022-12-10] MEDS: LISINOPRIL 5 MG TABLET PO SCH (15:08)
[2022-12-10] MEDS: ABACAVIR/DOLUTEGRAVIR/LAMIVUDI (TRIUMEQ) TABLET PO SCH (15:09)
[2022-12-10] MEDS ORDERED: INSULIN (NOVOLOG) ASPART 100 UNITS/ML 10ML VIAL SQ ONE (17:06)
[2022-12-10] MEDS: INSULIN (NOVOLOG) ASPART 100 UNITS/ML 10ML VIAL SQ SCH (17:37)
[2022-12-10] MEDS ORDERED: SUVOREXANT 10 MG TABLET PO PRN (22:00)
[2022-12-10] MEDS: THIAMINE HCL 100 MG TABLET (FP) PO SCH (22:47)
[2022-12-10] MEDS: INSULIN (LEVEMIR) 100 UNITS/ML UNITS SQ SCH (22:50)
[2022-12-10] MEDS: BUDESONIDE/FORMETEROL FUMARATE 80/4.5 mcg INHALER IH SCH ×2 (22:51→23:25)
[2022-12-10] MEDS ORDERED: GABAPENTIN 300 MG CAPSULE PO ONE (23:34)
[2022-12-11] MEDS: chlordiazePOXIDE HCL 25 MG CAPSULE PO SCH ×4 (05:51→17:58)
[2022-12-11 06:15] VITALS: TEMP 97.7
[2022-12-11] MEDS ORDERED: INSULIN (NOVOLOG) ASPART 100 UNITS/ML 10ML VIAL ONE ×2 (06:18→17:24)
[2022-12-11] MEDS: INSULIN (NOVOLOG) ASPART 100 UNITS/ML 10ML VIAL SQ SCH ×3 (06:28→17:35)
[2022-12-11] MEDS: ABACAVIR/DOLUTEGRAVIR/LAMIVUDI (TRIUMEQ) TABLET PO SCH (07:19)
[2022-12-11] MEDS ORDERED: SULFAMETHOXAZOLE/TRIMETHOPRIM 800MG/160MG D.S. TABLET PO SCH (10:00)
[2022-12-11] MEDS ORDERED: EZETIMIBE 10 MG TABLET (FP) PO SCH (10:00)
[2022-12-11] MEDS: PANTOPRAZOLE 20 MG TABLET PO SCH (10:52)
[2022-12-11] MEDS: PRENATAL VITAMINS W/ FOLIC ACID TABLET (FP) PO SCH (10:52)
[2022-12-11] MEDS: NICOTINE 21 MG/24 HOURS TOPICAL PATCH TD SCH (10:52)
[2022-12-11] MEDS: MONTELUKAST NA 10 MG TABLET PO SCH (10:52)
[2022-12-11] MEDS: lamoTRIgine 25 MG TABLET PO SCH (10:52)
[2022-12-11] MEDS: BUDESONIDE/FORMETEROL FUMARATE 80/4.5 mcg INHALER IH SCH (10:53)
[2022-12-11] MEDS: LISINOPRIL 5 MG TABLET PO SCH (10:53)
[2022-12-11] MEDS: FENOFIBRIC ACID 135 MG CAP PO SCH (12:14)
[2022-12-11] MEDS: IBUPROFEN 600 MG TABLET (FP) PO PRN (15:39)
[2022-12-11] MEDS ORDERED: INSULIN SLIDING SCALE (NOVOLOG) 1 VIAL SQ SCH ×2 (17:12→17:16)
[2022-12-11 17:47] VITALS: BP 120/66; PULSE 84; RESP 18
[2022-12-11] MEDS ORDERED: hydrOXYzine PAMOATE 25 MG CAPSULE (FP) PO PRN (18:39)
[2022-12-11] MEDS ORDERED: METHOCARBAMOL 500 MG TABLET PO PRN (18:41)
[2022-12-11] MEDS ORDERED: MELATONIN 5 MG TABLETS PO SCH (22:00)
[2022-12-12] MEDS ORDERED: chlordiazePOXIDE HCL 10 MG CAPSULE PO PRN
[2022-12-12] MEDS ORDERED: chlordiazePOXIDE HCL 10 MG CAPSULE PO SCH (05:00)
[2022-12-13] MEDS ORDERED: chlordiazePOXIDE HCL 10 MG CAPSULE PO SCH (05:00)
[2022-12-14] MEDS ORDERED: chlordiazePOXIDE HCL 10 MG CAPSULE PO ONE (05:00)
== END 2022-12-11 19:42 | disposition left against medical advice (07) | DRG 894 ==
LOC: YASAS 12:16 → Y6N 14:48
PROVIDERS: ADMIT Allergy & Immunology; ATTEND Surgery
PROC: HZ2ZZZZ Detoxification Services for Substance Abuse Treatment (ICD-10-PCS; principal; 2022-12-09)
DX: F10.230 Alcohol dependence with withdrawal, uncomplicated (principal); F14.20 Cocaine dependence, uncomplicated; F19.282 Other psychoactive substance dependence with psychoactive substance-induced sleep disorder; F19.24 Other psychoactive substance dependence with psychoactive substance-induced mood disorder; F12.20 Cannabis dependence, uncomplicated; Z21 Asymptomatic human immunodeficiency virus [HIV] infection status; F32.9 Major depressive disorder, single episode, unspecified; E78.5 Hyperlipidemia, unspecified; E11.65 Type 2 diabetes mellitus with hyperglycemia; Z79.4 Long term (current) use of insulin; K21.9 Gastro-esophageal reflux disease without esophagitis
CPT/HCPCS: 36415; 80053; 82140; 82962; 85027; 86780; 93005; 93010; 94640; C9803-CS; U0003; U0005

== ENCOUNTER 2023-01-15 14:24 | Inpatient (IN) | payer OTHER ==
[2023-01-15 14:54] VITALS: BMI 31.6
[2023-01-15] MEDS ORDERED: NALOXONE HCL (KLOXXADO) 8 MG SPRAY NS PRN (15:40)
[2023-01-15] MEDS ORDERED: METHOCARBAMOL 500 MG TABLET PO PRN (15:40)
[2023-01-15] MEDS ORDERED: IBUPROFEN 600 MG TABLET (FP) PO PRN (15:40)
[2023-01-15] MEDS ORDERED: BENZONATATE 200 MG CAPSULE PO PRN (15:40)
[2023-01-15] MEDS ORDERED: hydrOXYzine PAMOATE 25 MG CAPSULE (FP) PO PRN (15:40)
[2023-01-15] MEDS ORDERED: MAGNESIUM HYDROX 2400MG/30ML ORAL SUSPENSION 30 ML CUP PO PRN (15:40)
[2023-01-15] MEDS ORDERED: DICYCLOMINE HCL 10 MG CAPSULE PO PRN (15:40)
[2023-01-15] MEDS ORDERED: NALOXONE HCL 0.4 MG/ML VIAL IM PRN (15:40)
[2023-01-15] MEDS ORDERED: IBUPROFEN 400 MG TABLET (FP) PO PRN (15:40)
[2023-01-15] MEDS ORDERED: guaiFENesin 600 MG TABLET.ER (FP) PO PRN (15:40)
[2023-01-15] MEDS ORDERED: LOPERAMIDE HCL 2 MG CAPSULE PO PRN (15:40)
[2023-01-15] MEDS ORDERED: POLYETHYLENE GLYCOL (HEALTHYLAX) 3350 17 GM PACKET PO PRN (15:40)
[2023-01-15] MEDS ORDERED: NICOTINE 10 MG CARTRIDGE (INHALER) IH PRN (15:40)
[2023-01-15] MEDS ORDERED: ONDANSETRON *ODT* 4 MG TABLET SL PRN (15:40)
[2023-01-15] MEDS ORDERED: MAG HYDROX/AL HYDROX/SIMETH 30 ML UNIT-DOSE CUP PO PRN (15:40)
[2023-01-15] MEDS ORDERED: chlordiazePOXIDE HCL 25 MG CAPSULE PO PRN (15:40)
[2023-01-15] MEDS ORDERED: ACETAMINOPHEN 325 MG TABLET (FP) PO PRN (15:40)
[2023-01-15] MEDS ORDERED: BENZOCAINE/MENTHOL (CHLORASEPTIC ) LOZENGE MM PRN (15:40)
[2023-01-15] MEDS: chlordiazePOXIDE HCL 25 MG CAPSULE PO SCH ×2 (17:06→22:31)
[2023-01-15] MEDS ORDERED: chlordiazePOXIDE HCL 25 MG CAPSULE ONE (17:08)
[2023-01-15] MEDS: INSULIN SLIDING SCALE (NOVOLOG) 1 VIAL SQ SCH (17:30)
[2023-01-15] MEDS ORDERED: ALBUTEROL SO4 HFA INHALER IH PRN (17:51)
[2023-01-15] MEDS ORDERED: SYMBICORT IH SCH (22:00)
[2023-01-15] MEDS: MELATONIN 5 MG TABLETS PO SCH (22:31)
[2023-01-15] MEDS: INSULIN (LEVEMIR) 100 UNITS/ML UNITS SQ SCH (22:31)
[2023-01-15] MEDS: THIAMINE HCL 100 MG TABLET (FP) PO SCH (22:31)
[2023-01-15] MEDS: BUDESONIDE/FORMETEROL FUMARATE 80/4.5 mcg INHALER IH SCH (22:34)
[2023-01-16] MEDS: chlordiazePOXIDE HCL 25 MG CAPSULE PO SCH ×4 (05:49→22:02)
[2023-01-16] MEDS: INSULIN SLIDING SCALE (NOVOLOG) 1 VIAL SQ SCH ×3 (06:24→17:24)
[2023-01-16] MEDS: NICOTINE POLACRILEX 2 MG GUM BUC PRN ×3 (08:37→21:58)
[2023-01-16] MEDS ORDERED: lamoTRIgine 100 MG TABLET PO SCH (10:00)
[2023-01-16] MEDS ORDERED: NICOTINE 14 MG/24 HOURS TOPICAL PATCH TD SCH (10:00)
[2023-01-16] MEDS: EZETIMIBE 10 MG TABLET (FP) PO SCH (10:18)
[2023-01-16] MEDS: SULFAMETHOXAZOLE/TRIMETHOPRIM 800MG/160MG D.S. TABLET PO SCH (10:18)
[2023-01-16] MEDS: PRENATAL VITAMINS W/ FOLIC ACID TABLET (FP) PO SCH (10:18)
[2023-01-16] MEDS: MONTELUKAST NA 10 MG TABLET PO SCH (10:19)
[2023-01-16] MEDS: PANTOPRAZOLE 20 MG TABLET PO SCH (10:19)
[2023-01-16] MEDS: BUDESONIDE/FORMETEROL FUMARATE 80/4.5 mcg INHALER IH SCH ×2 (10:19→21:31)
[2023-01-16] MEDS: ABACAVIR/DOLUTEGRAVIR/LAMIVUDI (TRIUMEQ) TABLET PO SCH (10:19)
[2023-01-16] MEDS: LISINOPRIL 10 MG TABLET PO SCH (10:19)
[2023-01-16 11:38] LABS: HEMATOCRIT 42.5 % (35.4-49); HEMOGLOBIN 13.9 GM/dL (11.7-16.9); MCH 30.2 pg (25.7-33.7); MCHC 32.7 g/dl (32.0-35.9); MEAN CELL VOLUME 92.4 fl (80-96); MEAN PLT VOLUME 8.8 fl (7.5-11.1); PLATELET COUNT 138 10^3/uL (134-434); RDW 14.2 % (11.9-15.9); WHITE BLOOD COUNT 2.9 K/mm3 (4.0-10.0)
[2023-01-16 11:41] LABS: POTASSIUM 3.9 mmol/L (3.5-5.1)
[2023-01-16 11:42] LABS: CALCIUM 8.7 mg/dL (8.5-10.1)
[2023-01-16 11:43] LABS: ALBUMIN 2.8 g/dl (3.4-5.0); BLOOD UREA NITROGEN 11.3 mg/dL (7-18)
[2023-01-16 11:46] LABS: CREATININE 0.6 mg/dL (0.55-1.3)
[2023-01-16 11:48] LABS: BILIRUBIN,TOTAL 0.3 mg/dL (0.2-1); TOT PROT 6.3 g/dl (6.4-8.2)
[2023-01-16] MEDS: VENLAFAXINE HCL 75 MG E.R. CAPSULES PO SCH (12:18)
[2023-01-16] MEDS: LAMOTRIGINE 100 MG, LAMOTRIGINE 50 MG PO SCH (12:18)
[2023-01-16] MEDS: MELATONIN 5 MG TABLETS PO SCH (21:30)
[2023-01-16] MEDS: THIAMINE HCL 100 MG TABLET (FP) PO SCH (21:30)
[2023-01-16] MEDS: INSULIN (LEVEMIR) 100 UNITS/ML UNITS SQ SCH (21:30)
[2023-01-17] MEDS: chlordiazePOXIDE HCL 25 MG CAPSULE PO SCH ×4 (05:55→22:51)
[2023-01-17] MEDS: INSULIN SLIDING SCALE (NOVOLOG) 1 VIAL SQ SCH ×3 (05:59→17:02)
[2023-01-17] MEDS: LAMOTRIGINE 100 MG, LAMOTRIGINE 50 MG PO SCH (10:27)
[2023-01-17] MEDS: ABACAVIR/DOLUTEGRAVIR/LAMIVUDI (TRIUMEQ) TABLET PO SCH (10:27)
[2023-01-17] MEDS: VENLAFAXINE HCL 75 MG E.R. CAPSULES PO SCH (10:27)
[2023-01-17] MEDS: LISINOPRIL 10 MG TABLET PO SCH (10:28)
[2023-01-17] MEDS: EZETIMIBE 10 MG TABLET (FP) PO SCH (10:28)
[2023-01-17] MEDS: BUDESONIDE/FORMETEROL FUMARATE 80/4.5 mcg INHALER IH SCH ×2 (10:28→22:48)
[2023-01-17] MEDS: PANTOPRAZOLE 20 MG TABLET PO SCH (10:28)
[2023-01-17] MEDS: PRENATAL VITAMINS W/ FOLIC ACID TABLET (FP) PO SCH (10:28)
[2023-01-17] MEDS: SULFAMETHOXAZOLE/TRIMETHOPRIM 800MG/160MG D.S. TABLET PO SCH (10:28)
[2023-01-17] MEDS: MONTELUKAST NA 10 MG TABLET PO SCH (10:30)
[2023-01-17] MEDS: NICOTINE POLACRILEX 2 MG GUM BUC PRN (10:45)
[2023-01-17] MEDS: NICOTINE POLACRILEX 4 MG GUM BUC PRN ×2 (17:49→19:51)
[2023-01-17] MEDS: BISMUTH SUBSALICYLATE 524 MG/30 ML PO PRN (19:53)
[2023-01-17] MEDS: INSULIN (LEVEMIR) 100 UNITS/ML UNITS SQ SCH (21:05)
[2023-01-17] MEDS: MELATONIN 5 MG TABLETS PO SCH (22:48)
[2023-01-17] MEDS: THIAMINE HCL 100 MG TABLET (FP) PO SCH (22:48)
[2023-01-18] MEDS ORDERED: chlordiazePOXIDE HCL 10 MG CAPSULE PO PRN
[2023-01-18] MEDS: INSULIN SLIDING SCALE (NOVOLOG) 1 VIAL SQ SCH ×3 (06:14→17:01)
[2023-01-18] MEDS: chlordiazePOXIDE HCL 10 MG CAPSULE PO SCH ×4 (06:14→22:18)
[2023-01-18] MEDS: PANTOPRAZOLE 20 MG TABLET PO SCH (10:09)
[2023-01-18] MEDS: SULFAMETHOXAZOLE/TRIMETHOPRIM 800MG/160MG D.S. TABLET PO SCH (10:09)
[2023-01-18] MEDS: LISINOPRIL 10 MG TABLET PO SCH (10:09)
[2023-01-18] MEDS: MONTELUKAST NA 10 MG TABLET PO SCH (10:09)
[2023-01-18] MEDS: EZETIMIBE 10 MG TABLET (FP) PO SCH (10:10)
[2023-01-18] MEDS: LAMOTRIGINE 100 MG, LAMOTRIGINE 50 MG PO SCH (10:10)
[2023-01-18] MEDS: PRENATAL VITAMINS W/ FOLIC ACID TABLET (FP) PO SCH (10:11)
[2023-01-18] MEDS: ABACAVIR/DOLUTEGRAVIR/LAMIVUDI (TRIUMEQ) TABLET PO SCH (10:11)
[2023-01-18] MEDS: BUDESONIDE/FORMETEROL FUMARATE 80/4.5 mcg INHALER IH SCH ×2 (10:11→22:19)
[2023-01-18] MEDS: VENLAFAXINE HCL 150 MG E.R. CAPSULE PO SCH (10:12)
[2023-01-18] MEDS: NICOTINE POLACRILEX 4 MG GUM BUC PRN ×3 (10:33→15:43)
[2023-01-18] MEDS: MELATONIN 5 MG TABLETS PO SCH (22:17)
[2023-01-18] MEDS: THIAMINE HCL 100 MG TABLET (FP) PO SCH (22:17)
[2023-01-18] MEDS: INSULIN (LEVEMIR) 100 UNITS/ML UNITS SQ SCH (22:19)
[2023-01-19] MEDS: chlordiazePOXIDE HCL 10 MG CAPSULE PO SCH ×2 (06:02→17:29)
[2023-01-19] MEDS: INSULIN SLIDING SCALE (NOVOLOG) 1 VIAL SQ SCH ×3 (07:43→16:49)
[2023-01-19] MEDS: LISINOPRIL 10 MG TABLET PO SCH (09:26)
[2023-01-19] MEDS: PANTOPRAZOLE 20 MG TABLET PO SCH (09:26)
[2023-01-19] MEDS: MONTELUKAST NA 10 MG TABLET PO SCH (09:27)
[2023-01-19] MEDS: LAMOTRIGINE 100 MG, LAMOTRIGINE 50 MG PO SCH (09:27)
[2023-01-19] MEDS: SULFAMETHOXAZOLE/TRIMETHOPRIM 800MG/160MG D.S. TABLET PO SCH (09:27)
[2023-01-19] MEDS: BUDESONIDE/FORMETEROL FUMARATE 80/4.5 mcg INHALER IH SCH ×2 (09:27→21:22)
[2023-01-19] MEDS: PRENATAL VITAMINS W/ FOLIC ACID TABLET (FP) PO SCH (09:27)
[2023-01-19] MEDS: VENLAFAXINE HCL 150 MG E.R. CAPSULE PO SCH (09:27)
[2023-01-19] MEDS: EZETIMIBE 10 MG TABLET (FP) PO SCH (09:28)
[2023-01-19] MEDS: ABACAVIR/DOLUTEGRAVIR/LAMIVUDI (TRIUMEQ) TABLET PO SCH (09:29)
[2023-01-19] MEDS: NICOTINE POLACRILEX 4 MG GUM BUC PRN ×4 (09:31→21:51)
[2023-01-19] MEDS: BISMUTH SUBSALICYLATE 524 MG/30 ML PO PRN (12:29)
[2023-01-19] MEDS: INSULIN (LEVEMIR) 100 UNITS/ML UNITS SQ SCH (21:18)
[2023-01-19] MEDS: THIAMINE HCL 100 MG TABLET (FP) PO SCH (21:19)
[2023-01-19] MEDS: MELATONIN 5 MG TABLETS PO SCH (21:22)
[2023-01-20] MEDS ORDERED: chlordiazePOXIDE HCL 10 MG CAPSULE PO ONE (05:00)
[2023-01-20] MEDS: INSULIN SLIDING SCALE (NOVOLOG) 1 VIAL SQ SCH (06:05)
[2023-01-20 10:00] VITALS: BP 121/77; PULSE 98; RESP 20; TEMP 98.2
== END 2023-01-20 09:11 | disposition home or self-care (01) | DRG 897 ==
LOC: YASAS 14:24 → Y3N 17:15
PROVIDERS: ADMIT Allergy & Immunology; ATTEND Surgery
PROC: HZ2ZZZZ Detoxification Services for Substance Abuse Treatment (ICD-10-PCS; principal; 2023-01-15)
DX: F10.20 Alcohol dependence, uncomplicated (principal); F14.20 Cocaine dependence, uncomplicated; B20 Human immunodeficiency virus [HIV] disease; F19.282 Other psychoactive substance dependence with psychoactive substance-induced sleep disorder; F10.230 Alcohol dependence with withdrawal, uncomplicated; F12.20 Cannabis dependence, uncomplicated; F17.210 Nicotine dependence, cigarettes, uncomplicated; F19.24 Other psychoactive substance dependence with psychoactive substance-induced mood disorder; F32.9 Major depressive disorder, single episode, unspecified; E78.5 Hyperlipidemia, unspecified; E11.65 Type 2 diabetes mellitus with hyperglycemia; Z79.4 Long term (current) use of insulin; I10 Essential (primary) hypertension; J45.909 Unspecified asthma, uncomplicated; K21.9 Gastro-esophageal reflux disease without esophagitis; D72.819 Decreased white blood cell count, unspecified; Z79.899 Other long term (current) drug therapy
CPT/HCPCS: 36415; 80053; 82962; 83036; 85027; 86780; 87635

== ENCOUNTER 2023-02-06 21:16 | Inpatient (IN) | payer OTHER ==
[2023-02-06 22:37] VITALS: BMI 28.3
[2023-02-07] MEDS ORDERED: MAG HYDROX/AL HYDROX/SIMETH 30 ML UNIT-DOSE CUP PO PRN (04:35)
[2023-02-07] MEDS ORDERED: ACETAMINOPHEN 325 MG TABLET (FP) PO PRN (04:35)
[2023-02-07] MEDS ORDERED: guaiFENesin 600 MG TABLET.ER (FP) PO PRN (04:35)
[2023-02-07] MEDS ORDERED: LOPERAMIDE HCL 2 MG CAPSULE PO PRN (04:35)
[2023-02-07] MEDS ORDERED: IBUPROFEN 600 MG TABLET (FP) PO PRN (04:35)
[2023-02-07] MEDS ORDERED: ONDANSETRON *ODT* 4 MG TABLET SL PRN (04:35)
[2023-02-07] MEDS ORDERED: DICYCLOMINE HCL 10 MG CAPSULE PO PRN (04:35)
[2023-02-07] MEDS ORDERED: BENZONATATE 200 MG CAPSULE PO PRN (04:35)
[2023-02-07] MEDS ORDERED: MAGNESIUM HYDROX 2400MG/30ML ORAL SUSPENSION 30 ML CUP PO PRN (04:35)
[2023-02-07] MEDS ORDERED: BENZOCAINE/MENTHOL (CHLORASEPTIC ) LOZENGE MM PRN (04:35)
[2023-02-07] MEDS ORDERED: POLYETHYLENE GLYCOL (HEALTHYLAX) 3350 17 GM PACKET PO PRN (04:35)
[2023-02-07] MEDS ORDERED: NALOXONE HCL 0.4 MG/ML VIAL IM PRN (04:35)
[2023-02-07] MEDS ORDERED: IBUPROFEN 400 MG TABLET (FP) PO PRN (04:35)
[2023-02-07] MEDS ORDERED: METHOCARBAMOL 500 MG TABLET PO PRN (04:35)
[2023-02-07] MEDS ORDERED: BISMUTH SUBSALICYLATE 524 MG/30 ML PO PRN (04:35)
[2023-02-07] MEDS ORDERED: NALOXONE HCL (KLOXXADO) 8 MG SPRAY NS PRN (04:35)
[2023-02-07] MEDS ORDERED: diazePAM 5 MG TABLET PO PRN (04:49)
[2023-02-07] MEDS ORDERED: chlordiazePOXIDE HCL 25 MG CAPSULE PO PRN (04:51)
[2023-02-07] MEDS ORDERED: diazePAM 5 MG TABLET PO SCH (05:00)
[2023-02-07] MEDS: chlordiazePOXIDE HCL 25 MG CAPSULE PO SCH ×4 (05:19→22:40)
[2023-02-07] MEDS: NICOTINE 21 MG/24 HOURS TOPICAL PATCH TD SCH (10:27)
[2023-02-07] MEDS: PRENATAL VITAMINS W/ FOLIC ACID TABLET (FP) PO SCH (10:27)
[2023-02-07] MEDS ORDERED: INSULIN SLIDING SCALE (NOVOLOG) 1 VIAL SQ SCH (11:00)
[2023-02-07] MEDS ORDERED: INSULIN SLIDING SCALE (NOVOLOG) 1 VIAL SQ ONE (12:01)
[2023-02-07] MEDS ORDERED: ALBUTEROL SO4 HFA INHALER IH PRN (12:16)
[2023-02-07] MEDS: EZETIMIBE 10 MG TABLET (FP) PO SCH (14:21)
[2023-02-07] MEDS: MONTELUKAST NA 10 MG TABLET PO SCH (14:21)
[2023-02-07] MEDS: PANTOPRAZOLE 20 MG TABLET PO SCH (14:21)
[2023-02-07] MEDS: FENOFIBRIC ACID 135 MG CAP PO SCH (14:22)
[2023-02-07] MEDS: INSULIN SLIDING SCALE (NOVOLOG) 1 VIAL SQ SCH (17:01)
[2023-02-07] MEDS: NICOTINE POLACRILEX 2 MG GUM BUC PRN ×2 (18:09→22:52)
[2023-02-07] MEDS: SULFAMETHOXAZOLE/TRIMETHOPRIM 800MG/160MG D.S. TABLET PO SCH (19:27)
[2023-02-07] MEDS ORDERED: INSULIN (LEVEMIR) 100 UNITS/ML UNITS SQ SCH (22:00)
[2023-02-07] MEDS: ABACAVIR/DOLUTEGRAVIR/LAMIVUDI (TRIUMEQ) TABLET PO SCH (22:40)
[2023-02-07] MEDS: THIAMINE HCL 100 MG TABLET (FP) PO SCH (22:40)
[2023-02-07] MEDS: MELATONIN 5 MG TABLETS PO SCH (22:41)
[2023-02-07] MEDS: BUDESONIDE/FORMETEROL FUMARATE 80/4.5 mcg INHALER IH SCH (22:41)
[2023-02-08] MEDS: chlordiazePOXIDE HCL 25 MG CAPSULE PO SCH ×4 (06:00→22:17)
[2023-02-08] MEDS ORDERED: diazePAM 5 MG TABLET PO SCH (06:00)
[2023-02-08] MEDS: metFORMIN HCL 500 MG TABLET (FP) PO SCH ×2 (06:37→17:18)
[2023-02-08] MEDS: INSULIN SLIDING SCALE (NOVOLOG) 1 VIAL SQ SCH ×3 (06:38→17:19)
[2023-02-08] MEDS ORDERED: INSULIN SLIDING SCALE (NOVOLOG) 1 VIAL SQ ONE (06:43)
[2023-02-08] MEDS: SULFAMETHOXAZOLE/TRIMETHOPRIM 800MG/160MG D.S. TABLET PO SCH (10:34)
[2023-02-08] MEDS: LISINOPRIL 10 MG TABLET PO SCH (10:34)
[2023-02-08] MEDS: PANTOPRAZOLE 20 MG TABLET PO SCH (10:34)
[2023-02-08] MEDS: PRENATAL VITAMINS W/ FOLIC ACID TABLET (FP) PO SCH (10:34)
[2023-02-08] MEDS: BUDESONIDE/FORMETEROL FUMARATE 80/4.5 mcg INHALER IH SCH ×2 (10:35→22:18)
[2023-02-08] MEDS: MONTELUKAST NA 10 MG TABLET PO SCH (10:35)
[2023-02-08] MEDS: NICOTINE 21 MG/24 HOURS TOPICAL PATCH TD SCH (10:35)
[2023-02-08] MEDS: FENOFIBRIC ACID 135 MG CAP PO SCH (10:36)
[2023-02-08] MEDS: EZETIMIBE 10 MG TABLET (FP) PO SCH (10:36)
[2023-02-08] MEDS: ABACAVIR/DOLUTEGRAVIR/LAMIVUDI (TRIUMEQ) TABLET PO SCH (10:36)
[2023-02-08] MEDS: NICOTINE POLACRILEX 2 MG GUM BUC PRN ×2 (10:37→13:39)
[2023-02-08 11:13] LABS: HEMATOCRIT 42.6 % (35.4-49); MCH 30.8 pg (25.7-33.7); MCHC 32.9 g/dl (32.0-35.9); MEAN CELL VOLUME 93.6 fl (80-96); MEAN PLT VOLUME 9.4 fl (7.5-11.1); PLATELET COUNT 116 10^3/uL (134-434); RBC 4.55 M/mm3 (4.00-5.60); RDW 14.5 % (11.9-15.9); WHITE BLOOD COUNT 3.2 K/mm3 (4.0-10.0)
[2023-02-08 11:21] LABS: POTASSIUM 3.9 mmol/L (3.5-5.1)
[2023-02-08 11:24] LABS: CALCIUM 9.4 mg/dL (8.5-10.1)
[2023-02-08 11:25] LABS: ALBUMIN 2.6 g/dl (3.4-5.0); BLOOD UREA NITROGEN 17.7 mg/dL (7-18)
[2023-02-08 11:28] LABS: CREATININE 0.9 mg/dL (0.55-1.3)
[2023-02-08 11:30] LABS: BILIRUBIN,TOTAL 0.6 mg/dL (0.2-1); TOT PROT 6.1 g/dl (6.4-8.2)
[2023-02-08] MEDS: GABAPENTIN 300 MG CAPSULE PO SCH ×2 (13:39→22:17)
[2023-02-08] MEDS ORDERED: INSULIN (LEVEMIR) 100 UNITS/ML UNITS SQ SCH (22:00)
[2023-02-08] MEDS: THIAMINE HCL 100 MG TABLET (FP) PO SCH (22:17)
[2023-02-08] MEDS: MELATONIN 5 MG TABLETS PO SCH (22:17)
[2023-02-09] MEDS ORDERED: chlordiazePOXIDE HCL 10 MG CAPSULE PO PRN
[2023-02-09] MEDS: chlordiazePOXIDE HCL 10 MG CAPSULE PO SCH ×4 (05:53→23:05)
[2023-02-09] MEDS: GABAPENTIN 300 MG CAPSULE PO SCH ×3 (05:53→22:58)
[2023-02-09] MEDS ORDERED: diazePAM 5 MG TABLET PO SCH (06:00)
[2023-02-09] MEDS: NICOTINE POLACRILEX 2 MG GUM BUC PRN ×3 (06:00→17:35)
[2023-02-09] MEDS ORDERED: INSULIN SLIDING SCALE (NOVOLOG) 1 VIAL SQ ONE (06:58)
[2023-02-09] MEDS: metFORMIN HCL 500 MG TABLET (FP) PO SCH ×2 (07:19→16:52)
[2023-02-09] MEDS: INSULIN SLIDING SCALE (NOVOLOG) 1 VIAL SQ SCH ×3 (07:19→17:32)
[2023-02-09] MEDS: lamoTRIgine 100 MG TABLET PO SCH (10:49)
[2023-02-09] MEDS: LISINOPRIL 10 MG TABLET PO SCH (10:50)
[2023-02-09] MEDS: SULFAMETHOXAZOLE/TRIMETHOPRIM 800MG/160MG D.S. TABLET PO SCH (10:50)
[2023-02-09] MEDS: EZETIMIBE 10 MG TABLET (FP) PO SCH (10:50)
[2023-02-09] MEDS: PANTOPRAZOLE 20 MG TABLET PO SCH (10:50)
[2023-02-09] MEDS: PRENATAL VITAMINS W/ FOLIC ACID TABLET (FP) PO SCH (10:50)
[2023-02-09] MEDS: VENLAFAXINE HCL 150 MG E.R. CAPSULE PO SCH (10:50)
[2023-02-09] MEDS: MONTELUKAST NA 10 MG TABLET PO SCH (10:50)
[2023-02-09] MEDS: FENOFIBRIC ACID 135 MG CAP PO SCH (10:51)
[2023-02-09] MEDS: ABACAVIR/DOLUTEGRAVIR/LAMIVUDI (TRIUMEQ) TABLET PO SCH (10:51)
[2023-02-09] MEDS: NICOTINE 21 MG/24 HOURS TOPICAL PATCH TD SCH (10:53)
[2023-02-09] MEDS: BUDESONIDE/FORMETEROL FUMARATE 80/4.5 mcg INHALER IH SCH ×2 (10:53→22:59)
[2023-02-09] MEDS: MELATONIN 5 MG TABLETS PO SCH (22:57)
[2023-02-09] MEDS: THIAMINE HCL 100 MG TABLET (FP) PO SCH (23:03)
[2023-02-09] MEDS: INSULIN (LEVEMIR) 100 UNITS/ML UNITS SQ SCH (23:04)
[2023-02-10] MEDS ORDERED: diazePAM 5 MG TABLET PO ONE (06:00)
[2023-02-10] MEDS: chlordiazePOXIDE HCL 10 MG CAPSULE PO SCH ×2 (06:00→17:23)
[2023-02-10] MEDS: metFORMIN HCL 500 MG TABLET (FP) PO SCH ×2 (06:15→17:05)
[2023-02-10] MEDS: GABAPENTIN 300 MG CAPSULE PO SCH ×3 (06:15→22:06)
[2023-02-10] MEDS: INSULIN SLIDING SCALE (NOVOLOG) 1 VIAL SQ SCH ×3 (06:33→17:03)
[2023-02-10] MEDS: NICOTINE POLACRILEX 2 MG GUM BUC PRN ×2 (06:36→10:30)
[2023-02-10] MEDS: VENLAFAXINE HCL 150 MG E.R. CAPSULE PO SCH (10:27)
[2023-02-10] MEDS: PRENATAL VITAMINS W/ FOLIC ACID TABLET (FP) PO SCH (10:27)
[2023-02-10] MEDS: SULFAMETHOXAZOLE/TRIMETHOPRIM 800MG/160MG D.S. TABLET PO SCH (10:27)
[2023-02-10] MEDS: LISINOPRIL 10 MG TABLET PO SCH (10:27)
[2023-02-10] MEDS: BUDESONIDE/FORMETEROL FUMARATE 80/4.5 mcg INHALER IH SCH ×2 (10:27→22:06)
[2023-02-10] MEDS: FENOFIBRIC ACID 135 MG CAP PO SCH (10:27)
[2023-02-10] MEDS: PANTOPRAZOLE 20 MG TABLET PO SCH (10:27)
[2023-02-10] MEDS: ABACAVIR/DOLUTEGRAVIR/LAMIVUDI (TRIUMEQ) TABLET PO SCH (10:27)
[2023-02-10] MEDS: MONTELUKAST NA 10 MG TABLET PO SCH (10:27)
[2023-02-10] MEDS: EZETIMIBE 10 MG TABLET (FP) PO SCH (10:28)
[2023-02-10] MEDS: NICOTINE 21 MG/24 HOURS TOPICAL PATCH TD SCH (10:28)
[2023-02-10] MEDS: lamoTRIgine 100 MG TABLET PO SCH (10:28)
[2023-02-10] MEDS: INSULIN (LEVEMIR) 100 UNITS/ML UNITS SQ SCH (22:04)
[2023-02-10] MEDS: THIAMINE HCL 100 MG TABLET (FP) PO SCH (22:06)
[2023-02-10] MEDS: MELATONIN 5 MG TABLETS PO SCH (22:06)
[2023-02-11] MEDS ORDERED: chlordiazePOXIDE HCL 10 MG CAPSULE PO ONE (05:00)
[2023-02-11] MEDS: GABAPENTIN 300 MG CAPSULE PO SCH ×2 (05:55→13:16)
[2023-02-11] MEDS: INSULIN SLIDING SCALE (NOVOLOG) 1 VIAL SQ SCH ×2 (06:41→11:20)
[2023-02-11] MEDS: metFORMIN HCL 500 MG TABLET (FP) PO SCH (06:41)
[2023-02-11] MEDS ORDERED: INSULIN SLIDING SCALE (NOVOLOG) 1 VIAL SQ ONE (06:44)
[2023-02-11] MEDS: SULFAMETHOXAZOLE/TRIMETHOPRIM 800MG/160MG D.S. TABLET PO SCH (10:23)
[2023-02-11] MEDS: LISINOPRIL 10 MG TABLET PO SCH (10:23)
[2023-02-11] MEDS: VENLAFAXINE HCL 150 MG E.R. CAPSULE PO SCH (10:23)
[2023-02-11] MEDS: MONTELUKAST NA 10 MG TABLET PO SCH (10:23)
[2023-02-11] MEDS: PRENATAL VITAMINS W/ FOLIC ACID TABLET (FP) PO SCH (10:23)
[2023-02-11] MEDS: PANTOPRAZOLE 20 MG TABLET PO SCH (10:23)
[2023-02-11] MEDS: lamoTRIgine 100 MG TABLET PO SCH (10:23)
[2023-02-11] MEDS: NICOTINE 21 MG/24 HOURS TOPICAL PATCH TD SCH (10:24)
[2023-02-11] MEDS: EZETIMIBE 10 MG TABLET (FP) PO SCH (10:24)
[2023-02-11] MEDS: ABACAVIR/DOLUTEGRAVIR/LAMIVUDI (TRIUMEQ) TABLET PO SCH (10:24)
[2023-02-11] MEDS: BUDESONIDE/FORMETEROL FUMARATE 80/4.5 mcg INHALER IH SCH (10:24)
[2023-02-11] MEDS: FENOFIBRIC ACID 135 MG CAP PO SCH (10:24)
[2023-02-11] MEDS: NICOTINE POLACRILEX 2 MG GUM BUC PRN ×2 (10:27→13:18)
[2023-02-11 13:26] VITALS: BP 103/60; PULSE 92; RESP 20; TEMP 97.8
== END 2023-02-11 15:42 | disposition other institution (70) | DRG 897 ==
LOC: YASAS 21:16 → Y3N 02-07 04:56
PROVIDERS: ADMIT Allergy & Immunology; ATTEND Allergy & Immunology
PROC: HZ2ZZZZ Detoxification Services for Substance Abuse Treatment (ICD-10-PCS; principal; 2023-02-07)
DX: F10.230 Alcohol dependence with withdrawal, uncomplicated (principal); F14.20 Cocaine dependence, uncomplicated; B20 Human immunodeficiency virus [HIV] disease; F12.20 Cannabis dependence, uncomplicated; F17.210 Nicotine dependence, cigarettes, uncomplicated; F19.24 Other psychoactive substance dependence with psychoactive substance-induced mood disorder; G62.9 Polyneuropathy, unspecified; E78.5 Hyperlipidemia, unspecified; I10 Essential (primary) hypertension; J41.0 Simple chronic bronchitis; J45.20 Mild intermittent asthma, uncomplicated; E11.9 Type 2 diabetes mellitus without complications; Z79.85 Long-term (current) use of injectable non-insulin antidiabetic drugs; Z79.84 Long term (current) use of oral hypoglycemic drugs
CPT/HCPCS: 36415; 80053; 82962; 85027; 86780; 87635

== ENCOUNTER 2023-03-12 11:42 | Inpatient (IN) | payer OTHER ==
[2023-03-12 12:45] VITALS: BMI 30.5
[2023-03-12] MEDS ORDERED: BENZOCAINE/MENTHOL (CHLORASEPTIC ) LOZENGE MM PRN (14:20)
[2023-03-12] MEDS ORDERED: ONDANSETRON *ODT* 4 MG TABLET SL PRN (14:20)
[2023-03-12] MEDS ORDERED: NALOXONE HCL 0.4 MG/ML VIAL IM PRN (14:20)
[2023-03-12] MEDS ORDERED: POLYETHYLENE GLYCOL (HEALTHYLAX) 3350 17 GM PACKET PO PRN (14:20)
[2023-03-12] MEDS ORDERED: NICOTINE 14 MG/24 HOURS TOPICAL PATCH TD PRN (14:20)
[2023-03-12] MEDS ORDERED: BENZONATATE 200 MG CAPSULE PO PRN (14:20)
[2023-03-12] MEDS ORDERED: guaiFENesin 600 MG TABLET.ER (FP) PO PRN (14:20)
[2023-03-12] MEDS ORDERED: DICYCLOMINE HCL 10 MG CAPSULE PO PRN (14:20)
[2023-03-12] MEDS ORDERED: MAGNESIUM HYDROX 2400MG/30ML ORAL SUSPENSION 30 ML CUP PO PRN (14:20)
[2023-03-12] MEDS ORDERED: LOPERAMIDE HCL 2 MG CAPSULE PO PRN (14:20)
[2023-03-12] MEDS ORDERED: BISMUTH SUBSALICYLATE 524 MG/30 ML PO PRN (14:20)
[2023-03-12] MEDS ORDERED: ACETAMINOPHEN 325 MG TABLET (FP) PO PRN (14:20)
[2023-03-12] MEDS ORDERED: MAG HYDROX/AL HYDROX/SIMETH 30 ML UNIT-DOSE CUP PO PRN (14:20)
[2023-03-12] MEDS ORDERED: NALOXONE HCL (KLOXXADO) 8 MG SPRAY NS PRN (14:20)
[2023-03-12] MEDS ORDERED: ALBUTEROL SO4 HFA INHALER IH PRN (14:23)
[2023-03-12] MEDS ORDERED: INSULIN SLIDING SCALE (NOVOLOG) 1 VIAL SQ SCH (16:30)
[2023-03-12] MEDS: NICOTINE POLACRILEX 2 MG GUM BUC PRN (16:31)
[2023-03-12] MEDS: hydrOXYzine PAMOATE 25 MG CAPSULE (FP) PO PRN (16:32)
[2023-03-12] MEDS ORDERED: hydrOXYzine PAMOATE 25 MG CAPSULE (FP) PO ONE (16:35)
[2023-03-12] MEDS ORDERED: NICOTINE POLACRILEX 2 MG GUM ONE (16:36)
[2023-03-12] MEDS: INSULIN SLIDING SCALE (NOVOLOG) 1 VIAL SQ SCH ×2 (17:32→23:15)
[2023-03-12] MEDS: metFORMIN HCL 500 MG TABLET (FP) PO SCH (22:11)
[2023-03-12] MEDS: BUDESONIDE/FORMETEROL FUMARATE 80/4.5 mcg INHALER IH SCH (22:11)
[2023-03-12] MEDS: GABAPENTIN 300 MG CAPSULE PO SCH (22:12)
[2023-03-12] MEDS: THIAMINE HCL 100 MG TABLET (FP) PO SCH (22:12)
[2023-03-12] MEDS: MELATONIN 5 MG TABLETS PO SCH (22:12)
[2023-03-12] MEDS: INSULIN (LEVEMIR) 100 UNITS/ML UNITS SQ SCH (22:50)
[2023-03-12] MEDS: TRIAMCINOLONE ACET 0.1% OINT 15 GM TUBE TP SCH (23:15)
[2023-03-13] MEDS: GABAPENTIN 300 MG CAPSULE PO SCH ×3 (06:38→21:57)
[2023-03-13] MEDS: INSULIN SLIDING SCALE (NOVOLOG) 1 VIAL SQ SCH ×4 (06:41→22:15)
[2023-03-13] MEDS: hydrOXYzine PAMOATE 25 MG CAPSULE (FP) PO PRN (06:45)
[2023-03-13] MEDS: NICOTINE POLACRILEX 2 MG GUM BUC PRN ×4 (06:45→22:01)
[2023-03-13] MEDS ORDERED: SULFAMETHOXAZOLE/TRIMETHOPRIM 800MG/160MG D.S. TABLET PO SCH (10:00)
[2023-03-13] MEDS: metFORMIN HCL 500 MG TABLET (FP) PO SCH ×2 (10:53→21:57)
[2023-03-13] MEDS: PANTOPRAZOLE 20 MG TABLET PO SCH (10:53)
[2023-03-13] MEDS: METHOCARBAMOL 500 MG TABLET PO PRN (10:53)
[2023-03-13] MEDS: LISINOPRIL 5 MG TABLET PO SCH (10:53)
[2023-03-13] MEDS: PRENATAL VITAMINS W/ FOLIC ACID TABLET (FP) PO SCH (10:54)
[2023-03-13] MEDS: BUDESONIDE/FORMETEROL FUMARATE 80/4.5 mcg INHALER IH SCH ×2 (11:00→21:58)
[2023-03-13] MEDS: EZETIMIBE 10 MG TABLET (FP) PO SCH (11:01)
[2023-03-13] MEDS: VENLAFAXINE HCL 75 MG E.R. CAPSULES PO SCH (11:38)
[2023-03-13 11:42] LABS: POTASSIUM 4.1 mmol/L (3.5-5.1)
[2023-03-13 11:47] LABS: CALCIUM 9.1 mg/dL (8.5-10.1)
[2023-03-13 11:48] LABS: ALBUMIN 3.2 g/dl (3.4-5.0); BLOOD UREA NITROGEN 13.4 mg/dL (7-18); HEMATOCRIT 40.9 % (35.4-49); HEMOGLOBIN 13.5 GM/dL (11.7-16.9); MCH 31.6 pg (25.7-33.7); MCHC 32.9 g/dl (32.0-35.9); MEAN CELL VOLUME 96.3 fl (80-96); MEAN PLT VOLUME 9.1 fl (7.5-11.1); PLATELET COUNT 181 10^3/uL (134-434); RBC 4.25 M/mm3 (4.00-5.60); RDW 14.7 % (11.9-15.9); WHITE BLOOD COUNT 2.3 K/mm3 (4.0-10.0)
[2023-03-13 11:51] LABS: CREATININE 0.9 mg/dL (0.55-1.3)
[2023-03-13] MEDS ORDERED: LORazepam 1 MG TABLET PO PRN (11:51)
[2023-03-13 11:53] LABS: BILIRUBIN,TOTAL 0.4 mg/dL (0.2-1); TOT PROT 6.9 g/dl (6.4-8.2)
[2023-03-13] MEDS: SULFAMETHOXAZOLE/TRIMETHOPRIM 800MG/160MG D.S. TABLET PO SCH (13:36)
[2023-03-13] MEDS: TRIAMCINOLONE ACET 0.1% OINT 15 GM TUBE TP SCH ×2 (14:02→21:56)
[2023-03-13] MEDS: lamoTRIgine 25 MG TABLET PO SCH (14:03)
[2023-03-13] MEDS: ABACAVIR/DOLUTEGRAVIR/LAMIVUDI (TRIUMEQ) TABLET PO SCH (14:03)
[2023-03-13] MEDS: FENOFIBRIC ACID 135 MG CAP PO SCH (14:04)
[2023-03-13] MEDS: LORazepam 1 MG TABLET PO SCH ×2 (17:11→21:59)
[2023-03-13] MEDS: INSULIN (LEVEMIR) 100 UNITS/ML UNITS SQ SCH (21:57)
[2023-03-13] MEDS: MELATONIN 5 MG TABLETS PO SCH (21:58)
[2023-03-13] MEDS: THIAMINE HCL 100 MG TABLET (FP) PO SCH (21:58)
[2023-03-14] MEDS: GABAPENTIN 300 MG CAPSULE PO SCH ×3 (05:42→22:11)
[2023-03-14] MEDS: LORazepam 1 MG TABLET PO SCH ×4 (05:42→22:13)
[2023-03-14] MEDS: NICOTINE POLACRILEX 2 MG GUM BUC PRN ×2 (05:46→17:51)
[2023-03-14] MEDS: INSULIN SLIDING SCALE (NOVOLOG) 1 VIAL SQ SCH ×4 (06:17→22:18)
[2023-03-14] MEDS ORDERED: NICOTINE 21 MG/24 HOURS TOPICAL PATCH TD PRN (09:53)
[2023-03-14] MEDS: ABACAVIR/DOLUTEGRAVIR/LAMIVUDI (TRIUMEQ) TABLET PO SCH (10:42)
[2023-03-14] MEDS: PRENATAL VITAMINS W/ FOLIC ACID TABLET (FP) PO SCH (10:42)
[2023-03-14] MEDS: VENLAFAXINE HCL 75 MG E.R. CAPSULES PO SCH (10:43)
[2023-03-14] MEDS: METHOCARBAMOL 500 MG TABLET PO PRN (10:43)
[2023-03-14] MEDS: SULFAMETHOXAZOLE/TRIMETHOPRIM 800MG/160MG D.S. TABLET PO SCH (10:43)
[2023-03-14] MEDS: PANTOPRAZOLE 20 MG TABLET PO SCH (10:43)
[2023-03-14] MEDS: hydrOXYzine PAMOATE 25 MG CAPSULE (FP) PO PRN (10:43)
[2023-03-14] MEDS: LISINOPRIL 5 MG TABLET PO SCH (10:44)
[2023-03-14] MEDS: metFORMIN HCL 500 MG TABLET (FP) PO SCH ×2 (10:44→22:11)
[2023-03-14] MEDS: MONTELUKAST NA 10 MG TABLET PO SCH (10:44)
[2023-03-14] MEDS: lamoTRIgine 25 MG TABLET PO SCH (10:45)
[2023-03-14] MEDS: BUDESONIDE/FORMETEROL FUMARATE 80/4.5 mcg INHALER IH SCH ×2 (10:45→22:11)
[2023-03-14] MEDS: FENOFIBRIC ACID 135 MG CAP PO SCH (10:46)
[2023-03-14] MEDS: TRIAMCINOLONE ACET 0.1% OINT 15 GM TUBE TP SCH ×2 (10:46→22:05)
[2023-03-14] MEDS: EZETIMIBE 10 MG TABLET (FP) PO SCH (10:47)
[2023-03-14] MEDS ORDERED: INSULIN (NOVOLOG) ASPART 100 UNITS/ML 10ML VIAL ONE (10:59)
[2023-03-14] MEDS: THIAMINE HCL 100 MG TABLET (FP) PO SCH (22:11)
[2023-03-14] MEDS: MELATONIN 5 MG TABLETS PO SCH (22:11)
[2023-03-14] MEDS: INSULIN (LEVEMIR) 100 UNITS/ML UNITS SQ SCH (22:14)
[2023-03-15] MEDS ORDERED: LORazepam 0.5 MG TABLET PO PRN
[2023-03-15] MEDS: LORazepam 0.5 MG TABLET PO SCH ×2 (05:57→10:46)
[2023-03-15] MEDS: GABAPENTIN 300 MG CAPSULE PO SCH ×2 (05:58→13:05)
[2023-03-15] MEDS: NICOTINE POLACRILEX 2 MG GUM BUC PRN ×3 (06:01→13:06)
[2023-03-15] MEDS: INSULIN SLIDING SCALE (NOVOLOG) 1 VIAL SQ SCH ×2 (06:02→11:28)
[2023-03-15 06:04] VITALS: RESP 18
[2023-03-15] MEDS: LISINOPRIL 5 MG TABLET PO SCH (10:47)
[2023-03-15] MEDS: SULFAMETHOXAZOLE/TRIMETHOPRIM 800MG/160MG D.S. TABLET PO SCH (10:47)
[2023-03-15] MEDS: metFORMIN HCL 500 MG TABLET (FP) PO SCH (10:47)
[2023-03-15] MEDS: PANTOPRAZOLE 20 MG TABLET PO SCH (10:47)
[2023-03-15] MEDS: VENLAFAXINE HCL 75 MG E.R. CAPSULES PO SCH (10:48)
[2023-03-15] MEDS: lamoTRIgine 25 MG TABLET PO SCH (10:49)
[2023-03-15] MEDS: MONTELUKAST NA 10 MG TABLET PO SCH (10:49)
[2023-03-15] MEDS: PRENATAL VITAMINS W/ FOLIC ACID TABLET (FP) PO SCH (10:49)
[2023-03-15] MEDS: ABACAVIR/DOLUTEGRAVIR/LAMIVUDI (TRIUMEQ) TABLET PO SCH (10:50)
[2023-03-15] MEDS: FENOFIBRIC ACID 135 MG CAP PO SCH (10:50)
[2023-03-15] MEDS: EZETIMIBE 10 MG TABLET (FP) PO SCH (10:51)
[2023-03-15] MEDS: TRIAMCINOLONE ACET 0.1% OINT 15 GM TUBE TP SCH (10:53)
[2023-03-15] MEDS: BUDESONIDE/FORMETEROL FUMARATE 80/4.5 mcg INHALER IH SCH (10:53)
[2023-03-15 13:21] VITALS: BP 128/77; PULSE 103; TEMP 97.3
[2023-03-16] MEDS ORDERED: LORazepam 0.5 MG TABLET PO ONE (05:00)
== END 2023-03-15 13:50 | disposition home or self-care (01) | DRG 897 ==
LOC: YASAS 11:42 → Y6N 16:36
PROVIDERS: ADMIT Allergy & Immunology; ATTEND Allergy & Immunology
PROC: HZ2ZZZZ Detoxification Services for Substance Abuse Treatment (ICD-10-PCS; principal; 2023-03-12)
DX: F10.230 Alcohol dependence with withdrawal, uncomplicated (principal); F14.20 Cocaine dependence, uncomplicated; F31.81 Bipolar II disorder; F33.9 Major depressive disorder, recurrent, unspecified; B20 Human immunodeficiency virus [HIV] disease; F12.20 Cannabis dependence, uncomplicated; F17.210 Nicotine dependence, cigarettes, uncomplicated; F19.982 Other psychoactive substance use, unspecified with psychoactive substance-induced sleep disorder; F19.94 Other psychoactive substance use, unspecified with psychoactive substance-induced mood disorder; I10 Essential (primary) hypertension; E78.5 Hyperlipidemia, unspecified; J45.20 Mild intermittent asthma, uncomplicated; G62.9 Polyneuropathy, unspecified; J41.8 Mixed simple and mucopurulent chronic bronchitis; E11.9 Type 2 diabetes mellitus without complications; I83.91 Asymptomatic varicose veins of right lower extremity; D72.810 Lymphocytopenia; K21.9 Gastro-esophageal reflux disease without esophagitis; Z91.012 Allergy to eggs; Z79.4 Long term (current) use of insulin; Z86.19 Personal history of other infectious and parasitic diseases; Z56.0 Unemployment, unspecified
CPT/HCPCS: 36415; 80053; 82962; 85027; 86780; 87635

== ENCOUNTER 2023-03-24 13:45 | Inpatient (IN) | payer OTHER ==
[2023-03-24 15:06] VITALS: BMI 31.1
[2023-03-24] MEDS ORDERED: MAGNESIUM HYDROX 2400MG/30ML ORAL SUSPENSION 30 ML CUP PO PRN (20:02)
[2023-03-24] MEDS ORDERED: LOPERAMIDE HCL 2 MG CAPSULE PO PRN (20:02)
[2023-03-24] MEDS ORDERED: guaiFENesin 600 MG TABLET.ER (FP) PO PRN (20:02)
[2023-03-24] MEDS ORDERED: POLYETHYLENE GLYCOL (HEALTHYLAX) 3350 17 GM PACKET PO PRN (20:02)
[2023-03-24] MEDS ORDERED: AMMONIUM LACTATE 12% LOTION 225 GM BOTTLE TP PRN (20:02)
[2023-03-24] MEDS ORDERED: IBUPROFEN 400 MG TABLET (FP) PO PRN (20:02)
[2023-03-24] MEDS ORDERED: ACETAMINOPHEN 325 MG TABLET (FP) PO PRN (20:02)
[2023-03-24] MEDS ORDERED: BENZOCAINE/MENTHOL (CHLORASEPTIC ) LOZENGE MM PRN (20:02)
[2023-03-24] MEDS ORDERED: BENZONATATE 200 MG CAPSULE PO PRN (20:02)
[2023-03-24] MEDS ORDERED: P-EPHED 60MG/TRIPROLIDI 2.5MG TABLET PO PRN (20:02)
[2023-03-24] MEDS ORDERED: ALBUTEROL SO4 HFA INHALER IH PRN (20:05)
[2023-03-24] MEDS: THIAMINE HCL 100 MG TABLET (FP) PO SCH (21:30)
[2023-03-24] MEDS: INSULIN SLIDING SCALE (NOVOLOG) 1 VIAL SQ SCH (21:34)
[2023-03-24] MEDS ORDERED: MELATONIN 5 MG TABLETS PO SCH (22:00)
[2023-03-25] MEDS: INSULIN SLIDING SCALE (NOVOLOG) 1 VIAL SQ SCH ×4 (06:36→22:21)
[2023-03-25] MEDS ORDERED: INSULIN (NOVOLOG) ASPART 100 UNITS/ML 10ML VIAL ONE ×2 (06:45→17:08)
[2023-03-25] MEDS ORDERED: INSULIN SLIDING SCALE (NOVOLOG) 1 VIAL SQ SCH (08:57)
[2023-03-25] MEDS ORDERED: LAMOTRIGINE 100 MG, LAMOTRIGINE 50 MG PO SCH (10:00)
[2023-03-25] MEDS ORDERED: PATIENT'S OWN MEDICATION (NON-FORMULARY) (Lamotrigine [Lamictal] 150 MG Tablet) PO SCH (10:00)
[2023-03-25] MEDS ORDERED: lamoTRIgine 100 MG TABLET PO SCH (10:20)
[2023-03-25] MEDS: SULFAMETHOXAZOLE/TRIMETHOPRIM 800MG/160MG D.S. TABLET PO SCH (10:42)
[2023-03-25] MEDS: PANTOPRAZOLE 20 MG TABLET PO SCH (10:42)
[2023-03-25] MEDS: MONTELUKAST NA 10 MG TABLET PO SCH (10:42)
[2023-03-25] MEDS: PRENATAL VITAMINS W/ FOLIC ACID TABLET (FP) PO SCH (10:42)
[2023-03-25] MEDS: NICOTINE 21 MG/24 HOURS TOPICAL PATCH TD SCH (10:42)
[2023-03-25] MEDS: VENLAFAXINE HCL 75 MG E.R. CAPSULES PO SCH (10:42)
[2023-03-25] MEDS: LISINOPRIL 10 MG TABLET PO SCH (10:42)
[2023-03-25] MEDS: BUDESONIDE/FORMETEROL FUMARATE 160/4.5 mcg INHALER IH SCH ×2 (10:43→22:21)
[2023-03-25] MEDS: EZETIMIBE 10 MG TABLET (FP) PO SCH (10:44)
[2023-03-25] MEDS: ABACAVIR/DOLUTEGRAVIR/LAMIVUDI (TRIUMEQ) TABLET PO SCH (10:45)
[2023-03-25] MEDS: lamoTRIgine 25 MG TABLET PO SCH (11:26)
[2023-03-25] MEDS: INSULIN (NOVOLOG) ASPART 100 UNITS/ML 10ML VIAL SQ SCH ×2 (11:55→16:46)
[2023-03-25] MEDS: GABAPENTIN 300 MG CAPSULE PO SCH ×2 (14:26→22:20)
[2023-03-25] MEDS: metFORMIN HCL 500 MG TABLET (FP) PO SCH (16:45)
[2023-03-25] MEDS ORDERED: MELATONIN 5 MG TABLETS PO SCH (22:00)
[2023-03-25] MEDS ORDERED: SUVOREXANT 10 MG TABLET PO PRN (22:00)
[2023-03-25] MEDS: INSULIN (LEVEMIR) 100 UNITS/ML UNITS SQ SCH (22:19)
[2023-03-25] MEDS: THIAMINE HCL 100 MG TABLET (FP) PO SCH (22:21)
[2023-03-26] MEDS: GABAPENTIN 300 MG CAPSULE PO SCH ×3 (06:51→21:30)
[2023-03-26] MEDS: INSULIN (NOVOLOG) ASPART 100 UNITS/ML 10ML VIAL SQ SCH ×3 (06:51→16:45)
[2023-03-26] MEDS: metFORMIN HCL 500 MG TABLET (FP) PO SCH ×2 (06:51→16:42)
[2023-03-26] MEDS: NICOTINE POLACRILEX 4 MG GUM BUC PRN ×3 (06:52→21:31)
[2023-03-26] MEDS: INSULIN SLIDING SCALE (NOVOLOG) 1 VIAL SQ SCH ×4 (07:01→21:29)
[2023-03-26] MEDS: SULFAMETHOXAZOLE/TRIMETHOPRIM 800MG/160MG D.S. TABLET PO SCH (09:32)
[2023-03-26] MEDS: LISINOPRIL 10 MG TABLET PO SCH (09:32)
[2023-03-26] MEDS: VENLAFAXINE HCL 75 MG E.R. CAPSULES PO SCH (09:32)
[2023-03-26] MEDS: PRENATAL VITAMINS W/ FOLIC ACID TABLET (FP) PO SCH (09:32)
[2023-03-26] MEDS: MONTELUKAST NA 10 MG TABLET PO SCH (09:32)
[2023-03-26] MEDS: lamoTRIgine 25 MG TABLET PO SCH (09:32)
[2023-03-26] MEDS: PANTOPRAZOLE 20 MG TABLET PO SCH (09:32)
[2023-03-26] MEDS: EZETIMIBE 10 MG TABLET (FP) PO SCH (09:33)
[2023-03-26] MEDS: BUDESONIDE/FORMETEROL FUMARATE 160/4.5 mcg INHALER IH SCH ×2 (09:33→21:30)
[2023-03-26] MEDS: ABACAVIR/DOLUTEGRAVIR/LAMIVUDI (TRIUMEQ) TABLET PO SCH (09:33)
[2023-03-26] MEDS: NICOTINE 21 MG/24 HOURS TOPICAL PATCH TD SCH (09:35)
[2023-03-26] MEDS ORDERED: INSULIN (NOVOLOG) ASPART 100 UNITS/ML 10ML VIAL ONE (11:26)
[2023-03-26] MEDS: INSULIN (LEVEMIR) 100 UNITS/ML UNITS SQ SCH (21:29)
[2023-03-26] MEDS: THIAMINE HCL 100 MG TABLET (FP) PO SCH (21:30)
[2023-03-27] MEDS: INSULIN (NOVOLOG) ASPART 100 UNITS/ML 10ML VIAL SQ SCH ×3 (06:13→16:50)
[2023-03-27] MEDS: metFORMIN HCL 500 MG TABLET (FP) PO SCH ×2 (06:13→16:48)
[2023-03-27] MEDS: GABAPENTIN 300 MG CAPSULE PO SCH ×3 (06:13→21:34)
[2023-03-27] MEDS: NICOTINE POLACRILEX 4 MG GUM BUC PRN (06:15)
[2023-03-27] MEDS: INSULIN SLIDING SCALE (NOVOLOG) 1 VIAL SQ SCH ×4 (06:15→21:37)
[2023-03-27] MEDS ORDERED: INSULIN (NOVOLOG) ASPART 100 UNITS/ML 10ML VIAL ONE (06:44)
[2023-03-27] MEDS: PRENATAL VITAMINS W/ FOLIC ACID TABLET (FP) PO SCH (10:00)
[2023-03-27] MEDS: SULFAMETHOXAZOLE/TRIMETHOPRIM 800MG/160MG D.S. TABLET PO SCH (10:00)
[2023-03-27] MEDS: MONTELUKAST NA 10 MG TABLET PO SCH (10:00)
[2023-03-27] MEDS: VENLAFAXINE HCL 75 MG E.R. CAPSULES PO SCH (10:00)
[2023-03-27] MEDS: PANTOPRAZOLE 20 MG TABLET PO SCH (10:00)
[2023-03-27] MEDS: LISINOPRIL 10 MG TABLET PO SCH (10:00)
[2023-03-27] MEDS: NICOTINE 21 MG/24 HOURS TOPICAL PATCH TD SCH (10:01)
[2023-03-27] MEDS: lamoTRIgine 25 MG TABLET PO SCH (10:01)
[2023-03-27] MEDS: BUDESONIDE/FORMETEROL FUMARATE 160/4.5 mcg INHALER IH SCH ×2 (10:01→21:35)
[2023-03-27] MEDS: EZETIMIBE 10 MG TABLET (FP) PO SCH (10:02)
[2023-03-27] MEDS: ABACAVIR/DOLUTEGRAVIR/LAMIVUDI (TRIUMEQ) TABLET PO SCH (10:02)
[2023-03-27] MEDS: IBUPROFEN 600 MG TABLET (FP) PO PRN (12:05)
[2023-03-27] MEDS: THIAMINE HCL 100 MG TABLET (FP) PO SCH (21:34)
[2023-03-27] MEDS: ATORVASTATIN CA 20 MG TABLET (FP) PO SCH (21:37)
[2023-03-27] MEDS: INSULIN (LEVEMIR) 100 UNITS/ML UNITS SQ SCH (21:37)
[2023-03-27] MEDS: COLLOIDAL OATMEAL 1 BAR EACH TP PRN (21:37)
[2023-03-28] MEDS: GABAPENTIN 300 MG CAPSULE PO SCH ×3 (06:48→21:40)
[2023-03-28] MEDS: metFORMIN HCL 500 MG TABLET (FP) PO SCH ×2 (06:48→16:45)
[2023-03-28] MEDS: INSULIN SLIDING SCALE (NOVOLOG) 1 VIAL SQ SCH ×5 (06:58→21:43)
[2023-03-28] MEDS: INSULIN (NOVOLOG) ASPART 100 UNITS/ML 10ML VIAL SQ SCH ×4 (07:40→16:48)
[2023-03-28] MEDS ORDERED: INSULIN (NOVOLOG) ASPART 100 UNITS/ML 10ML VIAL ONE ×2 (08:24→21:46)
[2023-03-28] MEDS: PRENATAL VITAMINS W/ FOLIC ACID TABLET (FP) PO SCH (09:29)
[2023-03-28] MEDS: NICOTINE 21 MG/24 HOURS TOPICAL PATCH TD SCH (09:29)
[2023-03-28] MEDS: MONTELUKAST NA 10 MG TABLET PO SCH (09:30)
[2023-03-28] MEDS: SULFAMETHOXAZOLE/TRIMETHOPRIM 800MG/160MG D.S. TABLET PO SCH (09:30)
[2023-03-28] MEDS: LISINOPRIL 10 MG TABLET PO SCH (09:30)
[2023-03-28] MEDS: lamoTRIgine 25 MG TABLET PO SCH (09:30)
[2023-03-28] MEDS: VENLAFAXINE HCL 75 MG E.R. CAPSULES PO SCH (09:30)
[2023-03-28] MEDS: PANTOPRAZOLE 20 MG TABLET PO SCH (09:30)
[2023-03-28] MEDS: BUDESONIDE/FORMETEROL FUMARATE 160/4.5 mcg INHALER IH SCH ×2 (09:30→21:40)
[2023-03-28] MEDS: EZETIMIBE 10 MG TABLET (FP) PO SCH (09:31)
[2023-03-28] MEDS: ABACAVIR/DOLUTEGRAVIR/LAMIVUDI (TRIUMEQ) TABLET PO SCH (09:31)
[2023-03-28] MEDS: NICOTINE POLACRILEX 4 MG GUM BUC PRN (09:37)
[2023-03-28] MEDS ORDERED: DOCUSATE SODIUM 100 MG CAPSULE (FP) PO PRN (13:14)
[2023-03-28] MEDS: THIAMINE HCL 100 MG TABLET (FP) PO SCH (21:40)
[2023-03-28] MEDS: ATORVASTATIN CA 20 MG TABLET (FP) PO SCH (21:41)
[2023-03-28] MEDS: SUVOREXANT 10 MG TABLET PO PRN (21:41)
[2023-03-28] MEDS: INSULIN (LEVEMIR) 100 UNITS/ML UNITS SQ SCH (21:43)
[2023-03-28] MEDS ORDERED: INSULIN (LEVEMIR) 100 UNITS/ML UNITS SQ ONE (21:46)
[2023-03-29] MEDS: metFORMIN HCL 500 MG TABLET (FP) PO SCH ×2 (06:18→17:09)
[2023-03-29] MEDS: GABAPENTIN 300 MG CAPSULE PO SCH ×3 (06:18→21:19)
[2023-03-29] MEDS: INSULIN (NOVOLOG) ASPART 100 UNITS/ML 10ML VIAL SQ SCH ×3 (06:19→17:09)
[2023-03-29] MEDS: INSULIN SLIDING SCALE (NOVOLOG) 1 VIAL SQ SCH ×4 (06:19→22:20)
[2023-03-29] MEDS ORDERED: INSULIN (NOVOLOG) ASPART 100 UNITS/ML 10ML VIAL ONE (06:31)
[2023-03-29] MEDS: LISINOPRIL 10 MG TABLET PO SCH ×2 (09:29→10:00)
[2023-03-29] MEDS: SULFAMETHOXAZOLE/TRIMETHOPRIM 800MG/160MG D.S. TABLET PO SCH (09:59)
[2023-03-29] MEDS: VENLAFAXINE HCL 75 MG E.R. CAPSULES PO SCH (09:59)
[2023-03-29] MEDS: lamoTRIgine 25 MG TABLET PO SCH (09:59)
[2023-03-29] MEDS: NICOTINE 21 MG/24 HOURS TOPICAL PATCH TD SCH (10:00)
[2023-03-29] MEDS: PRENATAL VITAMINS W/ FOLIC ACID TABLET (FP) PO SCH (10:00)
[2023-03-29] MEDS: PANTOPRAZOLE 20 MG TABLET PO SCH (10:01)
[2023-03-29] MEDS: BUDESONIDE/FORMETEROL FUMARATE 160/4.5 mcg INHALER IH SCH ×2 (10:01→22:20)
[2023-03-29] MEDS: ABACAVIR/DOLUTEGRAVIR/LAMIVUDI (TRIUMEQ) TABLET PO SCH (10:01)
[2023-03-29] MEDS: MONTELUKAST NA 10 MG TABLET PO SCH (10:01)
[2023-03-29] MEDS: EZETIMIBE 10 MG TABLET (FP) PO SCH (10:02)
[2023-03-29] MEDS: MAG HYDROX/AL HYDROX/SIMETH 30 ML UNIT-DOSE CUP PO PRN (10:04)
[2023-03-29] MEDS: METHOCARBAMOL 500 MG TABLET PO PRN ×2 (10:04→21:19)
[2023-03-29] MEDS: NICOTINE POLACRILEX 4 MG GUM BUC PRN ×2 (10:04→15:39)
[2023-03-29 10:53] LABS: BASO % 0.7 % (0-2.0); EOS % 3.3 % (0-4.5); HEMATOCRIT 40.1 % (35.4-49); HEMOGLOBIN 13.6 GM/dL (11.7-16.9); MCH 32.1 pg (25.7-33.7); MCHC 33.8 g/dl (32.0-35.9); MEAN PLT VOLUME 8.3 fl (7.5-11.1); MONO % 9.7 % (3.8-10.2); NEUT % 55.3 % (42.8-82.8); PLATELET COUNT 149 10^3/uL (134-434); RBC 4.22 M/mm3 (4.00-5.60); RDW 14.2 % (11.9-15.9); WHITE BLOOD COUNT 4.5 K/mm3 (4.0-10.0)
[2023-03-29] MEDS: SIMETHICONE 80 MG TAB.CHEW (FP) PO PRN (16:05)
[2023-03-29] MEDS: INSULIN (LEVEMIR) 100 UNITS/ML UNITS SQ SCH (21:17)
[2023-03-29] MEDS: THIAMINE HCL 100 MG TABLET (FP) PO SCH (21:19)
[2023-03-29] MEDS: ATORVASTATIN CA 20 MG TABLET (FP) PO SCH (21:19)
[2023-03-29] MEDS: SUVOREXANT 10 MG TABLET PO PRN (21:21)
[2023-03-30] MEDS: GABAPENTIN 300 MG CAPSULE PO SCH ×3 (06:22→21:17)
[2023-03-30] MEDS: metFORMIN HCL 500 MG TABLET (FP) PO SCH ×2 (06:22→16:35)
[2023-03-30] MEDS: INSULIN SLIDING SCALE (NOVOLOG) 1 VIAL SQ SCH ×4 (06:23→21:23)
[2023-03-30] MEDS: INSULIN (NOVOLOG) ASPART 100 UNITS/ML 10ML VIAL SQ SCH ×3 (06:30→16:37)
[2023-03-30] MEDS: LISINOPRIL 10 MG TABLET PO SCH (06:51)
[2023-03-30] MEDS: NICOTINE POLACRILEX 4 MG GUM BUC PRN ×3 (07:55→13:35)
[2023-03-30] MEDS: NICOTINE 21 MG/24 HOURS TOPICAL PATCH TD SCH (10:10)
[2023-03-30] MEDS: PANTOPRAZOLE 20 MG TABLET PO SCH (10:11)
[2023-03-30] MEDS: VENLAFAXINE HCL 75 MG E.R. CAPSULES PO SCH (10:11)
[2023-03-30] MEDS: MONTELUKAST NA 10 MG TABLET PO SCH (10:11)
[2023-03-30] MEDS: SULFAMETHOXAZOLE/TRIMETHOPRIM 800MG/160MG D.S. TABLET PO SCH (10:11)
[2023-03-30] MEDS: EZETIMIBE 10 MG TABLET (FP) PO SCH (10:11)
[2023-03-30] MEDS: ABACAVIR/DOLUTEGRAVIR/LAMIVUDI (TRIUMEQ) TABLET PO SCH (10:12)
[2023-03-30] MEDS: lamoTRIgine 25 MG TABLET PO SCH (10:12)
[2023-03-30] MEDS: BUDESONIDE/FORMETEROL FUMARATE 160/4.5 mcg INHALER IH SCH ×2 (10:13→21:19)
[2023-03-30] MEDS: PRENATAL VITAMINS W/ FOLIC ACID TABLET (FP) PO SCH (10:13)
[2023-03-30] MEDS: LIDOCAINE 5% TOPICAL PATCH TP SCH (11:48)
[2023-03-30] MEDS ORDERED: INSULIN (NOVOLOG) ASPART 100 UNITS/ML 10ML VIAL ONE (16:18)
[2023-03-30] MEDS: IBUPROFEN 600 MG TABLET (FP) PO PRN (16:40)
[2023-03-30] MEDS: THIAMINE HCL 100 MG TABLET (FP) PO SCH (21:16)
[2023-03-30] MEDS: ATORVASTATIN CA 20 MG TABLET (FP) PO SCH (21:16)
[2023-03-30] MEDS: LIDOCAINE PATCH REMOVAL MC SCH (21:17)
[2023-03-30] MEDS: TRIAMCINOLONE ACET 0.5% CREAM 15 GM TUBE TP SCH (21:17)
[2023-03-30] MEDS: INSULIN (LEVEMIR) 100 UNITS/ML UNITS SQ SCH (21:22)
[2023-03-31] MEDS: metFORMIN HCL 500 MG TABLET (FP) PO SCH ×2 (06:43→17:03)
[2023-03-31] MEDS: GABAPENTIN 300 MG CAPSULE PO SCH ×3 (06:43→21:36)
[2023-03-31] MEDS: LISINOPRIL 10 MG TABLET PO SCH (06:44)
[2023-03-31] MEDS: INSULIN (NOVOLOG) ASPART 100 UNITS/ML 10ML VIAL SQ SCH ×3 (06:45→17:06)
[2023-03-31] MEDS: INSULIN SLIDING SCALE (NOVOLOG) 1 VIAL SQ SCH ×4 (06:46→21:38)
[2023-03-31] MEDS: NICOTINE POLACRILEX 4 MG GUM BUC PRN ×2 (06:47→10:11)
[2023-03-31] MEDS ORDERED: INSULIN (NOVOLOG) ASPART 100 UNITS/ML 10ML VIAL ONE (06:55)
[2023-03-31] MEDS: VENLAFAXINE HCL 75 MG E.R. CAPSULES PO SCH (10:07)
[2023-03-31] MEDS: TRIAMCINOLONE ACET 0.5% CREAM 15 GM TUBE TP SCH (10:07)
[2023-03-31] MEDS: SULFAMETHOXAZOLE/TRIMETHOPRIM 800MG/160MG D.S. TABLET PO SCH (10:07)
[2023-03-31] MEDS: lamoTRIgine 25 MG TABLET PO SCH (10:08)
[2023-03-31] MEDS: LIDOCAINE 5% TOPICAL PATCH TP SCH (10:08)
[2023-03-31] MEDS: MONTELUKAST NA 10 MG TABLET PO SCH (10:09)
[2023-03-31] MEDS: PANTOPRAZOLE 20 MG TABLET PO SCH (10:09)
[2023-03-31] MEDS: NICOTINE 21 MG/24 HOURS TOPICAL PATCH TD SCH (10:09)
[2023-03-31] MEDS: PRENATAL VITAMINS W/ FOLIC ACID TABLET (FP) PO SCH (10:09)
[2023-03-31] MEDS: ABACAVIR/DOLUTEGRAVIR/LAMIVUDI (TRIUMEQ) TABLET PO SCH (10:10)
[2023-03-31] MEDS: BUDESONIDE/FORMETEROL FUMARATE 160/4.5 mcg INHALER IH SCH ×2 (10:10→21:38)
[2023-03-31] MEDS: EZETIMIBE 10 MG TABLET (FP) PO SCH (10:11)
[2023-03-31] MEDS ORDERED: METHYL SALICYLATE/MENTHOL OINT 30 GM TUBE TP PRN (12:54)
[2023-03-31] MEDS: INSULIN (LEVEMIR) 100 UNITS/ML UNITS SQ SCH (21:34)
[2023-03-31] MEDS: ATORVASTATIN CA 20 MG TABLET (FP) PO SCH (21:36)
[2023-03-31] MEDS: THIAMINE HCL 100 MG TABLET (FP) PO SCH (21:36)
[2023-03-31] MEDS: SUVOREXANT 10 MG TABLET PO PRN (21:37)
[2023-03-31] MEDS: MAG HYDROX/AL HYDROX/SIMETH 30 ML UNIT-DOSE CUP PO PRN (21:52)
[2023-03-31] MEDS: LIDOCAINE PATCH REMOVAL MC SCH (22:02)
[2023-04-01] MEDS: LISINOPRIL 10 MG TABLET PO SCH (06:51)
[2023-04-01] MEDS: GABAPENTIN 300 MG CAPSULE PO SCH ×3 (06:51→21:15)
[2023-04-01] MEDS: metFORMIN HCL 500 MG TABLET (FP) PO SCH ×2 (06:51→16:59)
[2023-04-01] MEDS: INSULIN SLIDING SCALE (NOVOLOG) 1 VIAL SQ SCH ×4 (06:51→21:13)
[2023-04-01] MEDS: TRIAMCINOLONE ACET 0.5% CREAM 15 GM TUBE TP PRN (06:53)
[2023-04-01] MEDS: COLLOIDAL OATMEAL 1 BAR EACH TP PRN (06:55)
[2023-04-01] MEDS: INSULIN (NOVOLOG) ASPART 100 UNITS/ML 10ML VIAL SQ SCH ×3 (07:04→17:00)
[2023-04-01] MEDS: SULFAMETHOXAZOLE/TRIMETHOPRIM 800MG/160MG D.S. TABLET PO SCH (09:37)
[2023-04-01] MEDS: lamoTRIgine 25 MG TABLET PO SCH (09:37)
[2023-04-01] MEDS: VENLAFAXINE HCL 75 MG E.R. CAPSULES PO SCH (09:37)
[2023-04-01] MEDS: LIDOCAINE 5% TOPICAL PATCH TP SCH (09:38)
[2023-04-01] MEDS: NICOTINE 21 MG/24 HOURS TOPICAL PATCH TD SCH (09:38)
[2023-04-01] MEDS: MONTELUKAST NA 10 MG TABLET PO SCH (09:39)
[2023-04-01] MEDS: PRENATAL VITAMINS W/ FOLIC ACID TABLET (FP) PO SCH (09:39)
[2023-04-01] MEDS: PANTOPRAZOLE 20 MG TABLET PO SCH (09:39)
[2023-04-01] MEDS: BUDESONIDE/FORMETEROL FUMARATE 160/4.5 mcg INHALER IH SCH ×2 (09:40→21:12)
[2023-04-01] MEDS: EZETIMIBE 10 MG TABLET (FP) PO SCH (09:40)
[2023-04-01] MEDS: ABACAVIR/DOLUTEGRAVIR/LAMIVUDI (TRIUMEQ) TABLET PO SCH (09:41)
[2023-04-01] MEDS: SIMETHICONE 80 MG TAB.CHEW (FP) PO PRN (10:43)
[2023-04-01] MEDS: TOLNAFTATE 1% CREAM 15 GM TUBE TP SCH ×2 (13:22→21:11)
[2023-04-01] MEDS ORDERED: INSULIN (NOVOLOG) ASPART 100 UNITS/ML 10ML VIAL ONE (16:30)
[2023-04-01] MEDS: THIAMINE HCL 100 MG TABLET (FP) PO SCH (21:10)
[2023-04-01] MEDS: LIDOCAINE PATCH REMOVAL MC SCH (21:12)
[2023-04-01] MEDS: INSULIN (LEVEMIR) 100 UNITS/ML UNITS SQ SCH (21:13)
[2023-04-01] MEDS: ATORVASTATIN CA 20 MG TABLET (FP) PO SCH (21:14)
[2023-04-01] MEDS: SUVOREXANT 10 MG TABLET PO PRN (21:15)
[2023-04-02] MEDS: LISINOPRIL 10 MG TABLET PO SCH (07:32)
[2023-04-02] MEDS: metFORMIN HCL 500 MG TABLET (FP) PO SCH ×2 (07:32→16:19)
[2023-04-02] MEDS: GABAPENTIN 300 MG CAPSULE PO SCH ×3 (07:32→21:17)
[2023-04-02] MEDS: INSULIN (NOVOLOG) ASPART 100 UNITS/ML 10ML VIAL SQ SCH ×3 (08:02→16:20)
[2023-04-02] MEDS: INSULIN SLIDING SCALE (NOVOLOG) 1 VIAL SQ SCH ×4 (08:03→21:21)
[2023-04-02] MEDS ORDERED: INSULIN (NOVOLOG) ASPART 100 UNITS/ML 10ML VIAL ONE ×2 (08:04→16:19)
[2023-04-02] MEDS: VENLAFAXINE HCL 75 MG E.R. CAPSULES PO SCH (10:10)
[2023-04-02] MEDS: PANTOPRAZOLE 20 MG TABLET PO SCH (10:10)
[2023-04-02] MEDS: PRENATAL VITAMINS W/ FOLIC ACID TABLET (FP) PO SCH (10:10)
[2023-04-02] MEDS: SULFAMETHOXAZOLE/TRIMETHOPRIM 800MG/160MG D.S. TABLET PO SCH (10:10)
[2023-04-02] MEDS: MONTELUKAST NA 10 MG TABLET PO SCH (10:10)
[2023-04-02] MEDS: LIDOCAINE 5% TOPICAL PATCH TP SCH ×2 (10:11→10:13)
[2023-04-02] MEDS: ABACAVIR/DOLUTEGRAVIR/LAMIVUDI (TRIUMEQ) TABLET PO SCH (10:11)
[2023-04-02] MEDS: EZETIMIBE 10 MG TABLET (FP) PO SCH (10:11)
[2023-04-02] MEDS: NICOTINE 21 MG/24 HOURS TOPICAL PATCH TD SCH (10:12)
[2023-04-02] MEDS: BUDESONIDE/FORMETEROL FUMARATE 160/4.5 mcg INHALER IH SCH ×2 (10:12→21:17)
[2023-04-02] MEDS: lamoTRIgine 25 MG TABLET PO SCH (10:12)
[2023-04-02] MEDS: TOLNAFTATE 1% CREAM 15 GM TUBE TP SCH ×2 (10:13→21:18)
[2023-04-02] MEDS: NICOTINE POLACRILEX 4 MG GUM BUC PRN ×2 (12:46→15:21)
[2023-04-02] MEDS: IBUPROFEN 600 MG TABLET (FP) PO PRN ×2 (14:26→21:20)
[2023-04-02] MEDS: METHOCARBAMOL 500 MG TABLET PO PRN ×2 (15:20→21:25)
[2023-04-02] MEDS: ATORVASTATIN CA 20 MG TABLET (FP) PO SCH (21:17)
[2023-04-02] MEDS: LIDOCAINE PATCH REMOVAL MC SCH (21:17)
[2023-04-02] MEDS: THIAMINE HCL 100 MG TABLET (FP) PO SCH (21:17)
[2023-04-02] MEDS: INSULIN (LEVEMIR) 100 UNITS/ML UNITS SQ SCH (21:21)
[2023-04-02] MEDS: SUVOREXANT 10 MG TABLET PO PRN (21:30)
[2023-04-03] MEDS: GABAPENTIN 300 MG CAPSULE PO SCH ×3 (06:56→21:17)
[2023-04-03] MEDS: LISINOPRIL 10 MG TABLET PO SCH (06:56)
[2023-04-03] MEDS: metFORMIN HCL 500 MG TABLET (FP) PO SCH ×2 (06:56→16:37)
[2023-04-03] MEDS: TRIAMCINOLONE ACET 0.5% CREAM 15 GM TUBE TP PRN ×2 (06:58→09:33)
[2023-04-03] MEDS: INSULIN SLIDING SCALE (NOVOLOG) 1 VIAL SQ SCH ×4 (07:02→21:22)
[2023-04-03 07:06] VITALS: RESP 18
[2023-04-03] MEDS: INSULIN (NOVOLOG) ASPART 100 UNITS/ML 10ML VIAL SQ SCH ×3 (07:46→16:35)
[2023-04-03] MEDS ORDERED: INSULIN (NOVOLOG) ASPART 100 UNITS/ML 10ML VIAL ONE (08:21)
[2023-04-03] MEDS: IBUPROFEN 600 MG TABLET (FP) PO PRN ×2 (08:32→21:17)
[2023-04-03] MEDS: NICOTINE POLACRILEX 4 MG GUM BUC PRN (08:32)
[2023-04-03] MEDS: METHOCARBAMOL 500 MG TABLET PO PRN (08:32)
[2023-04-03] MEDS: NICOTINE 21 MG/24 HOURS TOPICAL PATCH TD SCH (09:27)
[2023-04-03] MEDS: ABACAVIR/DOLUTEGRAVIR/LAMIVUDI (TRIUMEQ) TABLET PO SCH (09:28)
[2023-04-03] MEDS: SULFAMETHOXAZOLE/TRIMETHOPRIM 800MG/160MG D.S. TABLET PO SCH (09:28)
[2023-04-03] MEDS: EZETIMIBE 10 MG TABLET (FP) PO SCH (09:28)
[2023-04-03] MEDS: VENLAFAXINE HCL 75 MG E.R. CAPSULES PO SCH (09:28)
[2023-04-03] MEDS: PANTOPRAZOLE 20 MG TABLET PO SCH (09:28)
[2023-04-03] MEDS: MONTELUKAST NA 10 MG TABLET PO SCH (09:28)
[2023-04-03] MEDS: PRENATAL VITAMINS W/ FOLIC ACID TABLET (FP) PO SCH (09:28)
[2023-04-03] MEDS: BUDESONIDE/FORMETEROL FUMARATE 160/4.5 mcg INHALER IH SCH ×2 (09:29→21:17)
[2023-04-03] MEDS: lamoTRIgine 25 MG TABLET PO SCH (09:29)
[2023-04-03] MEDS: LIDOCAINE 5% TOPICAL PATCH TP SCH (10:02)
[2023-04-03] MEDS: TOLNAFTATE 1% CREAM 15 GM TUBE TP SCH ×2 (10:03→21:18)
[2023-04-03] MEDS: ATORVASTATIN CA 20 MG TABLET (FP) PO SCH (21:17)
[2023-04-03] MEDS: LIDOCAINE PATCH REMOVAL MC SCH (21:18)
[2023-04-03] MEDS: SUVOREXANT 10 MG TABLET PO PRN (21:18)
[2023-04-03] MEDS: INSULIN (LEVEMIR) 100 UNITS/ML UNITS SQ SCH (21:22)
[2023-04-03] MEDS: MAG HYDROX/AL HYDROX/SIMETH 30 ML UNIT-DOSE CUP PO PRN (21:23)
[2023-04-03] MEDS: THIAMINE HCL 100 MG TABLET (FP) PO SCH (21:37)
[2023-04-04] MEDS: INSULIN SLIDING SCALE (NOVOLOG) 1 VIAL SQ SCH ×4 (06:32→22:16)
[2023-04-04] MEDS: metFORMIN HCL 500 MG TABLET (FP) PO SCH ×2 (06:32→17:27)
[2023-04-04] MEDS: NICOTINE POLACRILEX 4 MG GUM BUC PRN ×3 (06:33→22:18)
[2023-04-04] MEDS: LISINOPRIL 10 MG TABLET PO SCH (06:40)
[2023-04-04] MEDS: INSULIN (NOVOLOG) ASPART 100 UNITS/ML 10ML VIAL SQ SCH ×3 (07:03→17:27)
[2023-04-04] MEDS: GABAPENTIN 300 MG CAPSULE PO SCH ×3 (07:03→21:23)
[2023-04-04] MEDS: SULFAMETHOXAZOLE/TRIMETHOPRIM 800MG/160MG D.S. TABLET PO SCH (10:04)
[2023-04-04] MEDS: lamoTRIgine 25 MG TABLET PO SCH (10:05)
[2023-04-04] MEDS: NICOTINE 21 MG/24 HOURS TOPICAL PATCH TD SCH (10:05)
[2023-04-04] MEDS: LIDOCAINE 5% TOPICAL PATCH TP SCH (10:05)
[2023-04-04] MEDS: VENLAFAXINE HCL 75 MG E.R. CAPSULES PO SCH (10:05)
[2023-04-04] MEDS: PRENATAL VITAMINS W/ FOLIC ACID TABLET (FP) PO SCH (10:06)
[2023-04-04] MEDS: PANTOPRAZOLE 20 MG TABLET PO SCH (10:07)
[2023-04-04] MEDS: ABACAVIR/DOLUTEGRAVIR/LAMIVUDI (TRIUMEQ) TABLET PO SCH (10:08)
[2023-04-04] MEDS: EZETIMIBE 10 MG TABLET (FP) PO SCH (10:08)
[2023-04-04] MEDS: BUDESONIDE/FORMETEROL FUMARATE 160/4.5 mcg INHALER IH SCH ×2 (10:09→21:24)
[2023-04-04] MEDS: MONTELUKAST NA 10 MG TABLET PO SCH (10:09)
[2023-04-04] MEDS: SIMETHICONE 80 MG TAB.CHEW (FP) PO PRN (10:10)
[2023-04-04] MEDS: TOLNAFTATE 1% CREAM 15 GM TUBE TP SCH ×2 (10:15→18:17)
[2023-04-04] MEDS: METHOCARBAMOL 500 MG TABLET PO PRN ×2 (11:35→21:23)
[2023-04-04] MEDS: THIAMINE HCL 100 MG TABLET (FP) PO SCH (21:23)
[2023-04-04] MEDS: ATORVASTATIN CA 20 MG TABLET (FP) PO SCH (21:23)
[2023-04-04] MEDS: MAG HYDROX/AL HYDROX/SIMETH 30 ML UNIT-DOSE CUP PO PRN (21:23)
[2023-04-04] MEDS ORDERED: SUVOREXANT 10 MG TABLET PO PRN (22:00)
[2023-04-04] MEDS: INSULIN (LEVEMIR) 100 UNITS/ML UNITS SQ SCH (22:16)
[2023-04-04] MEDS: LIDOCAINE PATCH REMOVAL MC SCH (22:19)
[2023-04-05] MEDS: LISINOPRIL 10 MG TABLET PO SCH (06:43)
[2023-04-05] MEDS: INSULIN SLIDING SCALE (NOVOLOG) 1 VIAL SQ SCH ×2 (06:43→12:09)
[2023-04-05] MEDS: GABAPENTIN 300 MG CAPSULE PO SCH (06:43)
[2023-04-05] MEDS: metFORMIN HCL 500 MG TABLET (FP) PO SCH (06:43)
[2023-04-05] MEDS: TOLNAFTATE 1% CREAM 15 GM TUBE TP SCH (06:45)
[2023-04-05] MEDS: TRIAMCINOLONE ACET 0.5% CREAM 15 GM TUBE TP PRN (06:47)
[2023-04-05 06:51] VITALS: BP 142/85; PULSE 86; TEMP 98
[2023-04-05] MEDS: INSULIN (NOVOLOG) ASPART 100 UNITS/ML 10ML VIAL SQ SCH ×2 (06:56→12:08)
[2023-04-05] MEDS ORDERED: INSULIN (NOVOLOG) ASPART 100 UNITS/ML 10ML VIAL ONE (06:59)
[2023-04-05] MEDS: COLLOIDAL OATMEAL 1 BAR EACH TP PRN (09:26)
[2023-04-05] MEDS: PRENATAL VITAMINS W/ FOLIC ACID TABLET (FP) PO SCH (09:27)
[2023-04-05] MEDS: IBUPROFEN 600 MG TABLET (FP) PO PRN (09:27)
[2023-04-05] MEDS: lamoTRIgine 25 MG TABLET PO SCH (09:27)
[2023-04-05] MEDS: NICOTINE 21 MG/24 HOURS TOPICAL PATCH TD SCH (09:27)
[2023-04-05] MEDS: LIDOCAINE 5% TOPICAL PATCH TP SCH (09:27)
[2023-04-05] MEDS: ABACAVIR/DOLUTEGRAVIR/LAMIVUDI (TRIUMEQ) TABLET PO SCH (09:28)
[2023-04-05] MEDS: EZETIMIBE 10 MG TABLET (FP) PO SCH (09:28)
[2023-04-05] MEDS: PANTOPRAZOLE 20 MG TABLET PO SCH (09:28)
[2023-04-05] MEDS: METHOCARBAMOL 500 MG TABLET PO PRN (09:28)
[2023-04-05] MEDS: VENLAFAXINE HCL 75 MG E.R. CAPSULES PO SCH (09:28)
[2023-04-05] MEDS: MONTELUKAST NA 10 MG TABLET PO SCH (09:29)
[2023-04-05] MEDS: SULFAMETHOXAZOLE/TRIMETHOPRIM 800MG/160MG D.S. TABLET PO SCH (09:29)
[2023-04-05] MEDS: BUDESONIDE/FORMETEROL FUMARATE 160/4.5 mcg INHALER IH SCH (09:29)
[2023-04-05] MEDS: NICOTINE POLACRILEX 4 MG GUM BUC PRN (09:30)
== END 2023-04-05 12:27 | disposition home or self-care (01) | DRG 895 ==
LOC: YASAS 13:45 → Y3E 17:29
PROVIDERS: ADMIT Allergy & Immunology; ATTEND Psychiatry & Neurology Pain Medicine
PROC: HZ42ZZZ Group Counseling for Substance Abuse Treatment, Cognitive-Behavioral (ICD-10-PCS; principal; 2023-03-24)
DX: F10.20 Alcohol dependence, uncomplicated (principal); F14.20 Cocaine dependence, uncomplicated; F19.282 Other psychoactive substance dependence with psychoactive substance-induced sleep disorder; B20 Human immunodeficiency virus [HIV] disease; F12.20 Cannabis dependence, uncomplicated; F17.210 Nicotine dependence, cigarettes, uncomplicated; F32.A Depression, unspecified; G62.9 Polyneuropathy, unspecified; G47.00 Insomnia, unspecified; I10 Essential (primary) hypertension; J41.8 Mixed simple and mucopurulent chronic bronchitis; J45.20 Mild intermittent asthma, uncomplicated; L30.9 Dermatitis, unspecified; B35.3 Tinea pedis; E78.5 Hyperlipidemia, unspecified; M25.512 Pain in left shoulder; E11.9 Type 2 diabetes mellitus without complications; Z79.4 Long term (current) use of insulin
CPT/HCPCS: 36415; 82962; 85025; 87635; 87811

== ENCOUNTER 2023-06-10 15:49 | Inpatient (IN) | payer OTHER ==
[2023-06-10 16:56] VITALS: BMI 30.4
[2023-06-10] MEDS ORDERED: BENZOCAINE/MENTHOL (CHLORASEPTIC ) LOZENGE MM PRN (17:31)
[2023-06-10] MEDS ORDERED: DOCUSATE SODIUM 100 MG CAPSULE (FP) PO PRN (17:31)
[2023-06-10] MEDS ORDERED: NALOXONE HCL (KLOXXADO) 8 MG SPRAY NS PRN (17:31)
[2023-06-10] MEDS ORDERED: BENZONATATE 200 MG CAPSULE PO PRN (17:31)
[2023-06-10] MEDS ORDERED: LOPERAMIDE HCL 2 MG CAPSULE PO PRN (17:31)
[2023-06-10] MEDS ORDERED: LORazepam 1 MG TABLET PO PRN (17:31)
[2023-06-10] MEDS ORDERED: COLLOIDAL OATMEAL 1 BAR EACH TP PRN (17:31)
[2023-06-10] MEDS ORDERED: guaiFENesin 600 MG TABLET.ER (FP) PO PRN (17:31)
[2023-06-10] MEDS ORDERED: POLYETHYLENE GLYCOL (HEALTHYLAX) 3350 17 GM PACKET PO PRN (17:31)
[2023-06-10] MEDS ORDERED: IBUPROFEN 600 MG TABLET (FP) PO PRN (17:31)
[2023-06-10] MEDS ORDERED: ACETAMINOPHEN 325 MG TABLET (FP) PO PRN (17:31)
[2023-06-10] MEDS ORDERED: IBUPROFEN 400 MG TABLET (FP) PO PRN (17:31)
[2023-06-10] MEDS ORDERED: MAGNESIUM HYDROX 2400MG/30ML ORAL SUSPENSION 30 ML CUP PO PRN (17:31)
[2023-06-10] MEDS ORDERED: NALOXONE HCL 0.4 MG/ML VIAL IVPUSH PRN (17:31)
[2023-06-10] MEDS ORDERED: SIMETHICONE 80 MG TAB.CHEW (FP) PO PRN (20:03)
[2023-06-10] MEDS ORDERED: ALBUTEROL SO4 HFA INHALER IH PRN (20:03)
[2023-06-10] MEDS ORDERED: MELATONIN 5 MG TABLETS PO SCH (22:00)
[2023-06-10] MEDS: LORazepam 2 MG TABLET PO SCH (22:35)
[2023-06-10] MEDS: TOLNAFTATE 1% CREAM 15 GM TUBE TP SCH (22:36)
[2023-06-10] MEDS: THIAMINE HCL 100 MG TABLET (FP) PO SCH (22:36)
[2023-06-10] MEDS: ATORVASTATIN CA 20 MG TABLET (FP) PO SCH (22:36)
[2023-06-10] MEDS: BUDESONIDE/FORMETEROL FUMARATE 160/4.5 mcg INHALER IH SCH (22:41)
[2023-06-10] MEDS: INSULIN (LEVEMIR) 100 UNITS/ML UNITS SQ SCH (23:33)
[2023-06-11] MEDS: LORazepam 2 MG TABLET PO SCH ×4 (05:47→22:48)
[2023-06-11] MEDS: LISINOPRIL 10 MG TABLET PO SCH (06:13)
[2023-06-11] MEDS: metFORMIN HCL 500 MG TABLET (FP) PO SCH ×2 (06:17→18:11)
[2023-06-11] MEDS: INSULIN SLIDING SCALE (NOVOLOG) 1 VIAL SQ SCH ×2 (06:48→18:12)
[2023-06-11] MEDS: PRENATAL VITAMINS W/ FOLIC ACID TABLET (FP) PO SCH (10:29)
[2023-06-11] MEDS: METHOCARBAMOL 500 MG TABLET PO PRN (10:31)
[2023-06-11] MEDS: MONTELUKAST NA 10 MG TABLET PO SCH (10:31)
[2023-06-11] MEDS: hydrOXYzine PAMOATE 25 MG CAPSULE (FP) PO PRN (10:31)
[2023-06-11] MEDS: BUDESONIDE/FORMETEROL FUMARATE 160/4.5 mcg INHALER IH SCH ×2 (10:31→22:37)
[2023-06-11] MEDS: SULFAMETHOXAZOLE/TRIMETHOPRIM 800MG/160MG D.S. TABLET PO SCH (10:31)
[2023-06-11] MEDS: TOLNAFTATE 1% CREAM 15 GM TUBE TP SCH ×2 (10:32→22:41)
[2023-06-11] MEDS: EZETIMIBE 10 MG TABLET (FP) PO SCH (10:58)
[2023-06-11] MEDS: ABACAVIR/DOLUTEGRAVIR/LAMIVUDI (TRIUMEQ) TABLET PO SCH (10:59)
[2023-06-11] MEDS: VENLAFAXINE HCL 75 MG E.R. CAPSULES PO SCH (11:09)
[2023-06-11] MEDS: lamoTRIgine 25 MG TABLET PO SCH (11:10)
[2023-06-11] MEDS: LACTULOSE 20 GM/30 ML UDC (FOR ORAL USE ONLY) PO SCH ×3 (14:32→22:40)
[2023-06-11] MEDS ORDERED: SUVOREXANT 10 MG TABLET PO PRN (22:00)
[2023-06-11] MEDS ORDERED: INSULIN SLIDING SCALE (NOVOLOG) 1 VIAL SQ SCH (22:00)
[2023-06-11] MEDS: ATORVASTATIN CA 20 MG TABLET (FP) PO SCH (22:37)
[2023-06-11] MEDS: NICOTINE 14 MG/24 HOURS TOPICAL PATCH TD SCH (22:37)
[2023-06-11] MEDS: GABAPENTIN 300 MG CAPSULE PO SCH (22:38)
[2023-06-11] MEDS: INSULIN (LEVEMIR) 100 UNITS/ML UNITS SQ SCH ×2 (22:39→22:45)
[2023-06-11] MEDS: NICOTINE POLACRILEX 4 MG GUM BUC PRN (22:40)
[2023-06-11] MEDS: THIAMINE HCL 100 MG TABLET (FP) PO SCH (22:41)
[2023-06-12] MEDS: NICOTINE POLACRILEX 4 MG GUM BUC PRN ×2 (00:59→06:13)
[2023-06-12] MEDS: METHOCARBAMOL 500 MG TABLET PO PRN ×2 (02:13→10:09)
[2023-06-12] MEDS: LORazepam 1 MG TABLET PO SCH ×4 (05:57→22:12)
[2023-06-12] MEDS: GABAPENTIN 300 MG CAPSULE PO SCH ×3 (06:00→22:11)
[2023-06-12] MEDS: metFORMIN HCL 500 MG TABLET (FP) PO SCH ×2 (07:03→17:24)
[2023-06-12] MEDS: INSULIN SLIDING SCALE (NOVOLOG) 1 VIAL SQ SCH ×2 (07:04→17:27)
[2023-06-12] MEDS: LISINOPRIL 10 MG TABLET PO SCH (07:18)
[2023-06-12] MEDS: MAG HYDROX/AL HYDROX/SIMETH 30 ML UNIT-DOSE CUP PO PRN (08:26)
[2023-06-12 09:46] LABS: HEMATOCRIT 40.8 % (35.4-49); MCH 31.2 pg (25.7-33.7); MCHC 31.7 g/dl (32.0-35.9); MEAN CELL VOLUME 98.2 fl (80-96); MEAN PLT VOLUME 9.8 fl (7.5-11.1); PLATELET COUNT 138 10^3/uL (134-434); RBC 4.16 M/mm3 (4.00-5.60); RDW 13.8 % (11.9-15.9); WHITE BLOOD COUNT 2.2 K/mm3 (4.0-10.0)
[2023-06-12 10:05] LABS: POTASSIUM 4.2 mmol/L (3.5-5.1)
[2023-06-12] MEDS: VENLAFAXINE HCL 75 MG E.R. CAPSULES PO SCH (10:08)
[2023-06-12] MEDS: MONTELUKAST NA 10 MG TABLET PO SCH (10:08)
[2023-06-12] MEDS: TOLNAFTATE 1% CREAM 15 GM TUBE TP SCH ×2 (10:08→22:16)
[2023-06-12] MEDS: lamoTRIgine 25 MG TABLET PO SCH (10:08)
[2023-06-12] MEDS: BUDESONIDE/FORMETEROL FUMARATE 160/4.5 mcg INHALER IH SCH ×2 (10:09→22:12)
[2023-06-12] MEDS: hydrOXYzine PAMOATE 25 MG CAPSULE (FP) PO PRN (10:09)
[2023-06-12] MEDS: PRENATAL VITAMINS W/ FOLIC ACID TABLET (FP) PO SCH (10:10)
[2023-06-12] MEDS: LACTULOSE 20 GM/30 ML UDC (FOR ORAL USE ONLY) PO SCH ×4 (10:10→22:16)
[2023-06-12] MEDS: EZETIMIBE 10 MG TABLET (FP) PO SCH (10:11)
[2023-06-12 10:12] LABS: BLOOD UREA NITROGEN 16.4 mg/dL (7-18); CALCIUM 8.8 mg/dL (8.5-10.1)
[2023-06-12] MEDS: ABACAVIR/DOLUTEGRAVIR/LAMIVUDI (TRIUMEQ) TABLET PO SCH (10:12)
[2023-06-12] MEDS: NICOTINE 14 MG/24 HOURS TOPICAL PATCH TD SCH (10:13)
[2023-06-12 10:15] LABS: BILIRUBIN,TOTAL 0.4 mg/dL (0.2-1); CREATININE 0.8 mg/dL (0.55-1.3); TOT PROT 6.5 g/dl (6.4-8.2)
[2023-06-12] MEDS: SULFAMETHOXAZOLE/TRIMETHOPRIM 800MG/160MG D.S. TABLET PO SCH (10:18)
[2023-06-12 10:38] LABS: ANISOCYTOSIS 2+; MACROCYTOSIS 0; OVALOCYTE 1+
[2023-06-12] MEDS ORDERED: INSULIN SLIDING SCALE (NOVOLOG) 1 VIAL SQ SCH ×2 (12:40→16:30)
[2023-06-12] MEDS ORDERED: INSULIN (NOVOLOG) ASPART 100 UNITS/ML 10ML VIAL SQ ONE (12:41)
[2023-06-12] MEDS ORDERED: INSULIN (NOVOLOG) ASPART 100 UNITS/ML 10ML VIAL ONE (12:44)
[2023-06-12] MEDS ORDERED: SIMETHICONE 80 MG TAB.CHEW (FP) PO ONE (14:43)
[2023-06-12] MEDS: LIDOCAINE 5% TOPICAL PATCH TP SCH (15:40)
[2023-06-12] MEDS: SIMETHICONE 80 MG TAB.CHEW (FP) PO SCH ×2 (17:24→22:12)
[2023-06-12] MEDS: ATORVASTATIN CA 20 MG TABLET (FP) PO SCH (22:11)
[2023-06-12] MEDS: THIAMINE HCL 100 MG TABLET (FP) PO SCH (22:12)
[2023-06-12] MEDS: valACYclovir HCL 500 MG TABLET (FP) PO SCH (22:13)
[2023-06-12] MEDS: INSULIN (LEVEMIR) 100 UNITS/ML UNITS SQ SCH (22:16)
[2023-06-12] MEDS: LIDOCAINE PATCH REMOVAL MC SCH (22:16)
[2023-06-13] MEDS ORDERED: LORazepam 0.5 MG TABLET PO PRN
[2023-06-13] MEDS: NICOTINE POLACRILEX 4 MG GUM BUC PRN ×4 (04:01→17:29)
[2023-06-13] MEDS: LORazepam 0.5 MG TABLET PO SCH ×4 (04:08→22:22)
[2023-06-13] MEDS: METHOCARBAMOL 500 MG TABLET PO PRN (04:10)
[2023-06-13] MEDS: GABAPENTIN 300 MG CAPSULE PO SCH ×3 (05:29→22:20)
[2023-06-13] MEDS: LISINOPRIL 10 MG TABLET PO SCH (07:43)
[2023-06-13] MEDS: metFORMIN HCL 500 MG TABLET (FP) PO SCH ×2 (07:43→17:27)
[2023-06-13] MEDS: INSULIN SLIDING SCALE (NOVOLOG) 1 VIAL SQ SCH ×3 (07:45→17:27)
[2023-06-13] MEDS ORDERED: INSULIN (NOVOLOG) ASPART 100 UNITS/ML 10ML VIAL ONE (07:50)
[2023-06-13] MEDS: PRENATAL VITAMINS W/ FOLIC ACID TABLET (FP) PO SCH (10:24)
[2023-06-13] MEDS: VENLAFAXINE HCL 75 MG E.R. CAPSULES PO SCH (10:25)
[2023-06-13] MEDS: SULFAMETHOXAZOLE/TRIMETHOPRIM 800MG/160MG D.S. TABLET PO SCH (10:25)
[2023-06-13] MEDS: valACYclovir HCL 500 MG TABLET (FP) PO SCH ×2 (10:25→22:38)
[2023-06-13] MEDS: SIMETHICONE 80 MG TAB.CHEW (FP) PO SCH ×4 (10:25→22:20)
[2023-06-13] MEDS: EZETIMIBE 10 MG TABLET (FP) PO SCH (10:26)
[2023-06-13] MEDS: TOLNAFTATE 1% CREAM 15 GM TUBE TP SCH ×2 (10:26→22:38)
[2023-06-13] MEDS: MONTELUKAST NA 10 MG TABLET PO SCH (10:26)
[2023-06-13] MEDS: lamoTRIgine 25 MG TABLET PO SCH (10:26)
[2023-06-13] MEDS: ABACAVIR/DOLUTEGRAVIR/LAMIVUDI (TRIUMEQ) TABLET PO SCH (10:26)
[2023-06-13] MEDS: BUDESONIDE/FORMETEROL FUMARATE 160/4.5 mcg INHALER IH SCH ×2 (10:26→22:22)
[2023-06-13] MEDS: LIDOCAINE 5% TOPICAL PATCH TP SCH (10:27)
[2023-06-13] MEDS: LACTULOSE 20 GM/30 ML UDC (FOR ORAL USE ONLY) PO SCH ×4 (10:27→22:19)
[2023-06-13] MEDS: NICOTINE 14 MG/24 HOURS TOPICAL PATCH TD SCH (10:31)
[2023-06-13 17:04] VITALS: RESP 18
[2023-06-13] MEDS: INSULIN (LEVEMIR) 100 UNITS/ML UNITS SQ SCH (22:19)
[2023-06-13] MEDS: LIDOCAINE PATCH REMOVAL MC SCH (22:20)
[2023-06-13] MEDS: ATORVASTATIN CA 20 MG TABLET (FP) PO SCH (22:20)
[2023-06-13] MEDS: THIAMINE HCL 100 MG TABLET (FP) PO SCH (22:22)
[2023-06-14] MEDS ORDERED: LORazepam 0.5 MG TABLET PO ONE (05:00)
[2023-06-14] MEDS: GABAPENTIN 300 MG CAPSULE PO SCH ×2 (05:33→13:15)
[2023-06-14] MEDS: metFORMIN HCL 500 MG TABLET (FP) PO SCH (06:06)
[2023-06-14] MEDS: INSULIN SLIDING SCALE (NOVOLOG) 1 VIAL SQ SCH ×2 (06:07→11:51)
[2023-06-14] MEDS: LISINOPRIL 10 MG TABLET PO SCH (06:09)
[2023-06-14] MEDS: NICOTINE POLACRILEX 4 MG GUM BUC PRN (08:30)
[2023-06-14] MEDS: BUDESONIDE/FORMETEROL FUMARATE 160/4.5 mcg INHALER IH SCH (09:24)
[2023-06-14] MEDS: LACTULOSE 20 GM/30 ML UDC (FOR ORAL USE ONLY) PO SCH ×2 (09:24→13:15)
[2023-06-14] MEDS: TOLNAFTATE 1% CREAM 15 GM TUBE TP SCH (09:24)
[2023-06-14] MEDS: PRENATAL VITAMINS W/ FOLIC ACID TABLET (FP) PO SCH (09:26)
[2023-06-14] MEDS: MONTELUKAST NA 10 MG TABLET PO SCH (09:26)
[2023-06-14] MEDS: ABACAVIR/DOLUTEGRAVIR/LAMIVUDI (TRIUMEQ) TABLET PO SCH (09:27)
[2023-06-14] MEDS: NICOTINE 14 MG/24 HOURS TOPICAL PATCH TD SCH (09:27)
[2023-06-14] MEDS: VENLAFAXINE HCL 75 MG E.R. CAPSULES PO SCH (09:27)
[2023-06-14] MEDS: EZETIMIBE 10 MG TABLET (FP) PO SCH (09:27)
[2023-06-14] MEDS: SULFAMETHOXAZOLE/TRIMETHOPRIM 800MG/160MG D.S. TABLET PO SCH (09:27)
[2023-06-14] MEDS: lamoTRIgine 25 MG TABLET PO SCH (09:27)
[2023-06-14] MEDS: LIDOCAINE 5% TOPICAL PATCH TP SCH (09:27)
[2023-06-14] MEDS: SIMETHICONE 80 MG TAB.CHEW (FP) PO SCH ×2 (09:27→13:17)
[2023-06-14] MEDS: valACYclovir HCL 500 MG TABLET (FP) PO SCH (09:28)
[2023-06-14] MEDS: MAG HYDROX/AL HYDROX/SIMETH 30 ML UNIT-DOSE CUP PO PRN (11:03)
[2023-06-14 12:55] VITALS: BP 118/78; PULSE 90; TEMP 97.3
[2023-06-14] MEDS ORDERED: FAMOTIDINE 20 MG TABLET PO SCH (22:00)
== END 2023-06-14 13:30 | disposition other institution (70) | DRG 897 ==
LOC: YASAS 15:49 → Y6N 17:45
PROVIDERS: ADMIT Allergy & Immunology; ATTEND Psychiatry & Neurology Pain Medicine
PROC: HZ2ZZZZ Detoxification Services for Substance Abuse Treatment (ICD-10-PCS; principal; 2023-06-10)
DX: F10.230 Alcohol dependence with withdrawal, uncomplicated (principal); F14.20 Cocaine dependence, uncomplicated; F19.282 Other psychoactive substance dependence with psychoactive substance-induced sleep disorder; E72.20 Disorder of urea cycle metabolism, unspecified; F12.20 Cannabis dependence, uncomplicated; F17.210 Nicotine dependence, cigarettes, uncomplicated; F31.9 Bipolar disorder, unspecified; F19.24 Other psychoactive substance dependence with psychoactive substance-induced mood disorder; Z21 Asymptomatic human immunodeficiency virus [HIV] infection status; G62.9 Polyneuropathy, unspecified; K21.9 Gastro-esophageal reflux disease without esophagitis; J41.8 Mixed simple and mucopurulent chronic bronchitis; J45.20 Mild intermittent asthma, uncomplicated; I10 Essential (primary) hypertension; E11.9 Type 2 diabetes mellitus without complications; Z79.84 Long term (current) use of oral hypoglycemic drugs
CPT/HCPCS: 36415; 80053; 82140; 82962; 85025; 86780; 87635

== ENCOUNTER 2023-06-14 13:33 | Inpatient (IN) | payer OTHER ==
[~2023-06-14 13:33] MED LIST: ACETAMINOPHEN 325 MG TABLET (FP) PO PRN; BENZONATATE 200 MG CAPSULE PO PRN; IBUPROFEN 400 MG TABLET (FP) PO PRN; IBUPROFEN 600 MG TABLET (FP) PO PRN; LOPERAMIDE HCL 2 MG CAPSULE PO PRN; MAGNESIUM HYDROX 2400MG/30ML ORAL SUSPENSION 30 ML CUP PO PRN; POLYETHYLENE GLYCOL (HEALTHYLAX) 3350 17 GM PACKET PO PRN; guaiFENesin 600 MG TABLET.ER (FP) PO PRN
[2023-06-14] MEDS: LACTULOSE 20 GM/30 ML UDC (FOR ORAL USE ONLY) PO SCH ×3 (14:30→22:14)
[2023-06-14] MEDS: DOCUSATE SODIUM 100 MG CAPSULE (FP) PO SCH ×2 (14:30→22:14)
[2023-06-14] MEDS: NICOTINE POLACRILEX 2 MG GUM BUC PRN ×2 (15:32→18:38)
[2023-06-14] MEDS: metFORMIN HCL 500 MG TABLET (FP) PO SCH (16:55)
[2023-06-14] MEDS: INSULIN SLIDING SCALE (NOVOLOG) 1 VIAL SQ SCH (16:56)
[2023-06-14] MEDS: MAG HYDROX/AL HYDROX/SIMETH 30 ML UNIT-DOSE CUP PO PRN (18:38)
[2023-06-14] MEDS ORDERED: valACYclovir HCL 500 MG TABLET (FP) PO SCH ×2 (22:00→22:38)
[2023-06-14] MEDS ORDERED: MELATONIN 5 MG TABLETS PO SCH (22:00)
[2023-06-14] MEDS: INSULIN (LEVEMIR) 100 UNITS/ML UNITS SQ SCH (22:18)
[2023-06-14] MEDS: ATORVASTATIN CA 20 MG TABLET (FP) PO SCH (22:18)
[2023-06-14] MEDS: BUDESONIDE/FORMETEROL FUMARATE 160/4.5 mcg INHALER IH SCH (22:20)
[2023-06-14] MEDS: GABAPENTIN 300 MG CAPSULE PO SCH (22:20)
[2023-06-14] MEDS: FAMOTIDINE 20 MG TABLET PO SCH (22:20)
[2023-06-14] MEDS: THIAMINE HCL 100 MG TABLET (FP) PO SCH (22:22)
[2023-06-14] MEDS: TOLNAFTATE 1% CREAM 15 GM TUBE TP SCH (22:23)
[2023-06-14] MEDS: valACYclovir HCL 500 MG TABLET (FP) PO SCH (22:45)
[2023-06-15] MEDS: hydrOXYzine PAMOATE 25 MG CAPSULE (FP) PO PRN (02:39)
[2023-06-15] MEDS: NICOTINE POLACRILEX 2 MG GUM BUC PRN ×4 (02:41→15:26)
[2023-06-15] MEDS: metFORMIN HCL 500 MG TABLET (FP) PO SCH (06:52)
[2023-06-15] MEDS: GABAPENTIN 300 MG CAPSULE PO SCH ×3 (06:52→21:20)
[2023-06-15] MEDS ORDERED: INSULIN (NOVOLOG) ASPART 100 UNITS/ML 10ML VIAL ONE ×2 (06:55→11:36)
[2023-06-15] MEDS: INSULIN SLIDING SCALE (NOVOLOG) 1 VIAL SQ SCH ×3 (06:55→16:46)
[2023-06-15] MEDS: LISINOPRIL 10 MG TABLET PO SCH (06:56)
[2023-06-15] MEDS: ABACAVIR/DOLUTEGRAVIR/LAMIVUDI (TRIUMEQ) TABLET PO SCH (07:05)
[2023-06-15] MEDS: LIDOCAINE 4% PATCH TP SCH (10:16)
[2023-06-15] MEDS: SULFAMETHOXAZOLE/TRIMETHOPRIM 800MG/160MG D.S. TABLET PO SCH (10:17)
[2023-06-15] MEDS: LACTULOSE 20 GM/30 ML UDC (FOR ORAL USE ONLY) PO SCH (10:17)
[2023-06-15] MEDS: DOCUSATE SODIUM 100 MG CAPSULE (FP) PO SCH (10:17)
[2023-06-15] MEDS: VENLAFAXINE HCL 75 MG E.R. CAPSULES PO SCH (10:18)
[2023-06-15] MEDS: FAMOTIDINE 20 MG TABLET PO SCH ×2 (10:18→21:20)
[2023-06-15] MEDS: MONTELUKAST NA 10 MG TABLET PO SCH (10:18)
[2023-06-15] MEDS: BUDESONIDE/FORMETEROL FUMARATE 160/4.5 mcg INHALER IH SCH ×2 (10:19→21:21)
[2023-06-15] MEDS: valACYclovir HCL 500 MG TABLET (FP) PO SCH ×2 (10:19→21:20)
[2023-06-15] MEDS: PRENATAL VITAMINS W/ FOLIC ACID TABLET (FP) PO SCH (10:20)
[2023-06-15] MEDS: TOLNAFTATE 1% CREAM 15 GM TUBE TP SCH (10:20)
[2023-06-15] MEDS: EZETIMIBE 10 MG TABLET (FP) PO SCH (10:21)
[2023-06-15] MEDS ORDERED: NALTREXONE HCL 50 MG TABLET PO SCH (10:45)
[2023-06-15] MEDS: lamoTRIgine 25 MG TABLET PO SCH (10:57)
[2023-06-15] MEDS: NICOTINE 14 MG/24 HOURS TOPICAL PATCH TD PRN (12:47)
[2023-06-15] MEDS: EMPAGLIFLOZIN (JARDIANCE) 25 MG TABLET PO SCH (13:10)
[2023-06-15] MEDS ORDERED: metFORMIN HCL 500 MG TABLET (FP) PO ONE (16:30)
[2023-06-15] MEDS: THIAMINE HCL 100 MG TABLET (FP) PO SCH (21:19)
[2023-06-15] MEDS: ATORVASTATIN CA 20 MG TABLET (FP) PO SCH (21:20)
[2023-06-15] MEDS: LIDOCAINE PATCH REMOVAL MC SCH (21:20)
[2023-06-15] MEDS: RIFAXIMIN 550 MG TABLET PO SCH (21:22)
[2023-06-15] MEDS: INSULIN (LEVEMIR) 100 UNITS/ML UNITS SQ SCH (21:24)
[2023-06-15] MEDS ORDERED: MELATONIN 5 MG TABLETS PO SCH (22:00)
[2023-06-16] MEDS: GABAPENTIN 300 MG CAPSULE PO SCH ×3 (07:10→21:24)
[2023-06-16] MEDS: EMPAGLIFLOZIN (JARDIANCE) 25 MG TABLET PO SCH (07:11)
[2023-06-16] MEDS: LISINOPRIL 10 MG TABLET PO SCH (07:11)
[2023-06-16] MEDS: INSULIN SLIDING SCALE (NOVOLOG) 1 VIAL SQ SCH ×3 (07:49→16:33)
[2023-06-16] MEDS ORDERED: INSULIN (NOVOLOG) ASPART 100 UNITS/ML 10ML VIAL ONE ×2 (07:52→11:38)
[2023-06-16] MEDS: ALBUTEROL SO4 HFA INHALER IH PRN (09:27)
[2023-06-16] MEDS: valACYclovir HCL 500 MG TABLET (FP) PO SCH ×2 (09:28→21:24)
[2023-06-16] MEDS: RIFAXIMIN 550 MG TABLET PO SCH ×2 (09:28→21:24)
[2023-06-16] MEDS: SULFAMETHOXAZOLE/TRIMETHOPRIM 800MG/160MG D.S. TABLET PO SCH (09:28)
[2023-06-16] MEDS: BUDESONIDE/FORMETEROL FUMARATE 160/4.5 mcg INHALER IH SCH ×2 (09:29→21:39)
[2023-06-16] MEDS: VENLAFAXINE HCL 75 MG E.R. CAPSULES PO SCH (09:29)
[2023-06-16] MEDS: PRENATAL VITAMINS W/ FOLIC ACID TABLET (FP) PO SCH (09:29)
[2023-06-16] MEDS: EZETIMIBE 10 MG TABLET (FP) PO SCH (09:29)
[2023-06-16] MEDS: MONTELUKAST NA 10 MG TABLET PO SCH (09:29)
[2023-06-16] MEDS: FAMOTIDINE 20 MG TABLET PO SCH ×2 (09:29→21:24)
[2023-06-16] MEDS: lamoTRIgine 25 MG TABLET PO SCH (09:29)
[2023-06-16] MEDS: LIDOCAINE 4% PATCH TP SCH (09:30)
[2023-06-16] MEDS: NICOTINE POLACRILEX 2 MG GUM BUC PRN ×2 (09:31→16:39)
[2023-06-16] MEDS: NICOTINE 14 MG/24 HOURS TOPICAL PATCH TD PRN (09:31)
[2023-06-16] MEDS: ABACAVIR/DOLUTEGRAVIR/LAMIVUDI (TRIUMEQ) TABLET PO SCH (09:34)
[2023-06-16] MEDS ORDERED: NALTREXONE HCL 50 MG TABLET PO SCH (10:00)
[2023-06-16] MEDS ORDERED: DICLOFENAC SODIUM 25 MG TABLET.DR PO SCH (11:30)
[2023-06-16] MEDS: METHOCARBAMOL 500 MG TABLET PO PRN (17:34)
[2023-06-16] MEDS: THIAMINE HCL 100 MG TABLET (FP) PO SCH (21:24)
[2023-06-16] MEDS: ATORVASTATIN CA 20 MG TABLET (FP) PO SCH (21:24)
[2023-06-16] MEDS: LIDOCAINE PATCH REMOVAL MC SCH (21:25)
[2023-06-16] MEDS: SUVOREXANT 10 MG TABLET PO PRN (21:25)
[2023-06-16] MEDS: INSULIN (LEVEMIR) 100 UNITS/ML UNITS SQ SCH (21:54)
[2023-06-17] MEDS: hydrOXYzine PAMOATE 25 MG CAPSULE (FP) PO PRN ×2 (02:51→21:23)
[2023-06-17] MEDS: GABAPENTIN 300 MG CAPSULE PO SCH ×3 (06:32→21:23)
[2023-06-17] MEDS: EMPAGLIFLOZIN (JARDIANCE) 25 MG TABLET PO SCH (06:33)
[2023-06-17] MEDS: LISINOPRIL 10 MG TABLET PO SCH (06:34)
[2023-06-17] MEDS: ABACAVIR/DOLUTEGRAVIR/LAMIVUDI (TRIUMEQ) TABLET PO SCH (07:10)
[2023-06-17] MEDS: INSULIN SLIDING SCALE (NOVOLOG) 1 VIAL SQ SCH ×3 (07:41→16:59)
[2023-06-17] MEDS ORDERED: INSULIN (NOVOLOG) ASPART 100 UNITS/ML 10ML VIAL ONE ×2 (07:43→11:49)
[2023-06-17] MEDS: valACYclovir HCL 500 MG TABLET (FP) PO SCH ×2 (10:52→21:23)
[2023-06-17] MEDS: MONTELUKAST NA 10 MG TABLET PO SCH (10:52)
[2023-06-17] MEDS: SULFAMETHOXAZOLE/TRIMETHOPRIM 800MG/160MG D.S. TABLET PO SCH (10:53)
[2023-06-17] MEDS: LIDOCAINE 4% PATCH TP SCH (10:53)
[2023-06-17] MEDS: RIFAXIMIN 550 MG TABLET PO SCH ×2 (10:53→21:23)
[2023-06-17] MEDS: PRENATAL VITAMINS W/ FOLIC ACID TABLET (FP) PO SCH (10:54)
[2023-06-17] MEDS: lamoTRIgine 25 MG TABLET PO SCH (10:55)
[2023-06-17] MEDS: BUDESONIDE/FORMETEROL FUMARATE 160/4.5 mcg INHALER IH SCH ×2 (10:55→21:59)
[2023-06-17] MEDS: VENLAFAXINE HCL 75 MG E.R. CAPSULES PO SCH (10:56)
[2023-06-17] MEDS: EZETIMIBE 10 MG TABLET (FP) PO SCH (10:56)
[2023-06-17] MEDS: FAMOTIDINE 20 MG TABLET PO SCH ×2 (10:56→21:23)
[2023-06-17] MEDS: NICOTINE POLACRILEX 2 MG GUM BUC PRN ×2 (10:59→17:36)
[2023-06-17] MEDS: METHYL SALICYLATE/MENTHOL OINT 30 GM TUBE TP SCH ×2 (11:49→21:58)
[2023-06-17] MEDS: NICOTINE 14 MG/24 HOURS TOPICAL PATCH TD PRN (11:54)
[2023-06-17] MEDS ORDERED: BENZONATATE 200 MG CAPSULE PO PRN (15:44)
[2023-06-17] MEDS: METHOCARBAMOL 500 MG TABLET PO PRN (21:23)
[2023-06-17] MEDS: guaiFENesin 600 MG TABLET.ER (FP) PO SCH (21:23)
[2023-06-17] MEDS: THIAMINE HCL 100 MG TABLET (FP) PO SCH (21:23)
[2023-06-17] MEDS: ATORVASTATIN CA 20 MG TABLET (FP) PO SCH (21:23)
[2023-06-17] MEDS: SUVOREXANT 10 MG TABLET PO PRN (21:24)
[2023-06-17] MEDS: INSULIN (LEVEMIR) 100 UNITS/ML UNITS SQ SCH (21:26)
[2023-06-17] MEDS: LIDOCAINE PATCH REMOVAL MC SCH (22:11)
[2023-06-18] MEDS ORDERED: INSULIN (NOVOLOG) ASPART 100 UNITS/ML 10ML VIAL ONE ×3 (06:17→23:12)
[2023-06-18] MEDS: INSULIN SLIDING SCALE (NOVOLOG) 1 VIAL SQ SCH ×3 (06:17→16:36)
[2023-06-18] MEDS: LISINOPRIL 10 MG TABLET PO SCH (06:18)
[2023-06-18] MEDS: GABAPENTIN 300 MG CAPSULE PO SCH ×3 (06:18→21:12)
[2023-06-18] MEDS: EMPAGLIFLOZIN (JARDIANCE) 25 MG TABLET PO SCH (06:18)
[2023-06-18] MEDS: NICOTINE POLACRILEX 2 MG GUM BUC PRN ×2 (06:19→13:05)
[2023-06-18] MEDS: COLLOIDAL OATMEAL 1 BAR EACH TP PRN (06:20)
[2023-06-18] MEDS: ABACAVIR/DOLUTEGRAVIR/LAMIVUDI (TRIUMEQ) TABLET PO SCH (07:01)
[2023-06-18] MEDS: ALBUTEROL SO4 HFA INHALER IH PRN (09:26)
[2023-06-18] MEDS: SULFAMETHOXAZOLE/TRIMETHOPRIM 800MG/160MG D.S. TABLET PO SCH (09:27)
[2023-06-18] MEDS: METHYL SALICYLATE/MENTHOL OINT 30 GM TUBE TP SCH ×2 (09:27→21:13)
[2023-06-18] MEDS: LIDOCAINE 4% PATCH TP SCH (09:27)
[2023-06-18] MEDS: guaiFENesin 600 MG TABLET.ER (FP) PO SCH ×2 (09:28→21:12)
[2023-06-18] MEDS: FAMOTIDINE 20 MG TABLET PO SCH (09:28)
[2023-06-18] MEDS: VENLAFAXINE HCL 75 MG E.R. CAPSULES PO SCH (09:28)
[2023-06-18] MEDS: lamoTRIgine 25 MG TABLET PO SCH (09:28)
[2023-06-18] MEDS: MONTELUKAST NA 10 MG TABLET PO SCH (09:29)
[2023-06-18] MEDS: BUDESONIDE/FORMETEROL FUMARATE 160/4.5 mcg INHALER IH SCH ×2 (09:29→21:14)
[2023-06-18] MEDS: PRENATAL VITAMINS W/ FOLIC ACID TABLET (FP) PO SCH (09:29)
[2023-06-18] MEDS: valACYclovir HCL 500 MG TABLET (FP) PO SCH ×2 (09:29→21:14)
[2023-06-18] MEDS: EZETIMIBE 10 MG TABLET (FP) PO SCH (09:30)
[2023-06-18] MEDS: RIFAXIMIN 550 MG TABLET PO SCH ×2 (09:30→21:12)
[2023-06-18] MEDS: BENZOCAINE/MENTHOL (CHLORASEPTIC ) LOZENGE MM PRN (09:31)
[2023-06-18] MEDS: PATIENT'S OWN MEDICATION (NON-FORMULARY) (Omeprazole 20 MG Capsule.Dr) PO SCH (11:13)
[2023-06-18] MEDS: DICLOFENAC SODIUM 25 MG TABLET.DR PO PRN (16:39)
[2023-06-18] MEDS: THIAMINE HCL 100 MG TABLET (FP) PO SCH (21:12)
[2023-06-18] MEDS: ATORVASTATIN CA 20 MG TABLET (FP) PO SCH (21:12)
[2023-06-18] MEDS: SUVOREXANT 10 MG TABLET PO PRN ×2 (21:12→23:08)
[2023-06-18] MEDS: LIDOCAINE PATCH REMOVAL MC SCH (21:13)
[2023-06-18] MEDS: INSULIN (LEVEMIR) 100 UNITS/ML UNITS SQ SCH ×2 (21:14→23:14)
[2023-06-18] MEDS: hydrOXYzine PAMOATE 25 MG CAPSULE (FP) PO PRN ×2 (23:07→23:09)
[2023-06-18] MEDS ORDERED: INSULIN (LEVEMIR) 100 UNITS/ML UNITS SQ ONE (23:15)
[2023-06-19] MEDS: BENZOCAINE/MENTHOL (CHLORASEPTIC ) LOZENGE MM PRN (01:56)
[2023-06-19] MEDS: GABAPENTIN 300 MG CAPSULE PO SCH ×3 (06:14→21:27)
[2023-06-19] MEDS: LISINOPRIL 10 MG TABLET PO SCH (06:14)
[2023-06-19] MEDS: EMPAGLIFLOZIN (JARDIANCE) 25 MG TABLET PO SCH (06:14)
[2023-06-19] MEDS ORDERED: INSULIN (NOVOLOG) ASPART 100 UNITS/ML 10ML VIAL ONE (06:16)
[2023-06-19] MEDS: INSULIN SLIDING SCALE (NOVOLOG) 1 VIAL SQ SCH ×3 (06:16→16:35)
[2023-06-19] MEDS: ABACAVIR/DOLUTEGRAVIR/LAMIVUDI (TRIUMEQ) TABLET PO SCH (07:10)
[2023-06-19] MEDS: LIDOCAINE 4% PATCH TP SCH (09:56)
[2023-06-19] MEDS: SULFAMETHOXAZOLE/TRIMETHOPRIM 800MG/160MG D.S. TABLET PO SCH (09:56)
[2023-06-19] MEDS: METHYL SALICYLATE/MENTHOL OINT 30 GM TUBE TP SCH ×2 (09:57→21:27)
[2023-06-19] MEDS: VENLAFAXINE HCL 75 MG E.R. CAPSULES PO SCH (09:57)
[2023-06-19] MEDS: guaiFENesin 600 MG TABLET.ER (FP) PO SCH ×2 (09:58→21:27)
[2023-06-19] MEDS: lamoTRIgine 25 MG TABLET PO SCH (09:58)
[2023-06-19] MEDS: PATIENT'S OWN MEDICATION (NON-FORMULARY) (Omeprazole 20 MG Capsule.Dr) PO SCH (09:59)
[2023-06-19] MEDS: PRENATAL VITAMINS W/ FOLIC ACID TABLET (FP) PO SCH (09:59)
[2023-06-19] MEDS: valACYclovir HCL 500 MG TABLET (FP) PO SCH ×2 (09:59→21:30)
[2023-06-19] MEDS: BUDESONIDE/FORMETEROL FUMARATE 160/4.5 mcg INHALER IH SCH ×2 (09:59→21:28)
[2023-06-19] MEDS: MONTELUKAST NA 10 MG TABLET PO SCH (09:59)
[2023-06-19] MEDS: EZETIMIBE 10 MG TABLET (FP) PO SCH (10:00)
[2023-06-19] MEDS: RIFAXIMIN 550 MG TABLET PO SCH ×2 (10:00→21:27)
[2023-06-19] MEDS: NICOTINE POLACRILEX 2 MG GUM BUC PRN ×2 (10:01→12:45)
[2023-06-19] MEDS: NICOTINE 14 MG/24 HOURS TOPICAL PATCH TD PRN (10:01)
[2023-06-19] MEDS: INSULIN (LEVEMIR) 100 UNITS/ML UNITS SQ SCH (21:27)
[2023-06-19] MEDS: ATORVASTATIN CA 20 MG TABLET (FP) PO SCH (21:27)
[2023-06-19] MEDS: LIDOCAINE PATCH REMOVAL MC SCH (21:29)
[2023-06-19] MEDS: THIAMINE HCL 100 MG TABLET (FP) PO SCH (21:30)
[2023-06-20] MEDS: GABAPENTIN 300 MG CAPSULE PO SCH ×3 (06:42→21:11)
[2023-06-20] MEDS: EMPAGLIFLOZIN (JARDIANCE) 25 MG TABLET PO SCH (06:42)
[2023-06-20] MEDS: LISINOPRIL 10 MG TABLET PO SCH (06:43)
[2023-06-20] MEDS: INSULIN SLIDING SCALE (NOVOLOG) 1 VIAL SQ SCH ×3 (06:45→17:07)
[2023-06-20] MEDS ORDERED: INSULIN (NOVOLOG) ASPART 100 UNITS/ML 10ML VIAL ONE ×2 (06:49→11:36)
[2023-06-20] MEDS: ABACAVIR/DOLUTEGRAVIR/LAMIVUDI (TRIUMEQ) TABLET PO SCH (07:55)
[2023-06-20] MEDS: BUDESONIDE/FORMETEROL FUMARATE 160/4.5 mcg INHALER IH SCH ×2 (09:43→21:11)
[2023-06-20] MEDS: LIDOCAINE 4% PATCH TP SCH (09:43)
[2023-06-20] MEDS ORDERED: TRIAMCINOLONE ACET 0.1% CREAM 15 GM TUBE TP PRN (09:43)
[2023-06-20] MEDS: VENLAFAXINE HCL 75 MG E.R. CAPSULES PO SCH (09:44)
[2023-06-20] MEDS: METHYL SALICYLATE/MENTHOL OINT 30 GM TUBE TP SCH ×2 (09:44→21:12)
[2023-06-20] MEDS: EZETIMIBE 10 MG TABLET (FP) PO SCH (09:44)
[2023-06-20] MEDS: PATIENT'S OWN MEDICATION (NON-FORMULARY) (Omeprazole 20 MG Capsule.Dr) PO SCH (09:44)
[2023-06-20] MEDS: SULFAMETHOXAZOLE/TRIMETHOPRIM 800MG/160MG D.S. TABLET PO SCH (09:44)
[2023-06-20] MEDS: valACYclovir HCL 500 MG TABLET (FP) PO SCH ×2 (09:44→21:11)
[2023-06-20] MEDS: lamoTRIgine 25 MG TABLET PO SCH (09:44)
[2023-06-20] MEDS: MONTELUKAST NA 10 MG TABLET PO SCH (09:44)
[2023-06-20] MEDS: guaiFENesin 600 MG TABLET.ER (FP) PO SCH ×2 (09:44→21:11)
[2023-06-20] MEDS: RIFAXIMIN 550 MG TABLET PO SCH ×2 (09:44→21:11)
[2023-06-20] MEDS: PRENATAL VITAMINS W/ FOLIC ACID TABLET (FP) PO SCH (09:44)
[2023-06-20] MEDS: NICOTINE 21 MG/24 HOURS TOPICAL PATCH TD PRN (09:45)
[2023-06-20] MEDS: NICOTINE POLACRILEX 4 MG GUM BUC PRN ×2 (09:45→13:36)
[2023-06-20] MEDS: ATORVASTATIN CA 20 MG TABLET (FP) PO SCH (21:11)
[2023-06-20] MEDS: THIAMINE HCL 100 MG TABLET (FP) PO SCH (21:11)
[2023-06-20] MEDS: INSULIN (LEVEMIR) 100 UNITS/ML UNITS SQ SCH (21:12)
[2023-06-20] MEDS: LIDOCAINE PATCH REMOVAL MC SCH (21:12)
[2023-06-20] MEDS: hydrOXYzine PAMOATE 25 MG CAPSULE (FP) PO PRN (22:12)
[2023-06-20] MEDS: SUVOREXANT 10 MG TABLET PO PRN (22:12)
[2023-06-21] MEDS: INSULIN SLIDING SCALE (NOVOLOG) 1 VIAL SQ SCH ×3 (06:44→18:15)
[2023-06-21] MEDS: GABAPENTIN 300 MG CAPSULE PO SCH ×3 (06:45→21:21)
[2023-06-21] MEDS: EMPAGLIFLOZIN (JARDIANCE) 25 MG TABLET PO SCH (06:45)
[2023-06-21] MEDS: LISINOPRIL 10 MG TABLET PO SCH (06:45)
[2023-06-21] MEDS ORDERED: INSULIN (NOVOLOG) ASPART 100 UNITS/ML 10ML VIAL ONE ×2 (06:47→16:41)
[2023-06-21] MEDS: ABACAVIR/DOLUTEGRAVIR/LAMIVUDI (TRIUMEQ) TABLET PO SCH (09:00)
[2023-06-21] MEDS ORDERED: NALTREXONE HCL 50 MG TABLET PO SCH (10:00)
[2023-06-21] MEDS: LIDOCAINE 4% PATCH TP SCH (10:09)
[2023-06-21] MEDS: SULFAMETHOXAZOLE/TRIMETHOPRIM 800MG/160MG D.S. TABLET PO SCH (10:10)
[2023-06-21] MEDS: lamoTRIgine 25 MG TABLET PO SCH (10:10)
[2023-06-21] MEDS: guaiFENesin 600 MG TABLET.ER (FP) PO SCH ×2 (10:10→21:20)
[2023-06-21] MEDS: VENLAFAXINE HCL 75 MG E.R. CAPSULES PO SCH (10:10)
[2023-06-21] MEDS: METHYL SALICYLATE/MENTHOL OINT 30 GM TUBE TP SCH ×2 (10:10→22:18)
[2023-06-21] MEDS: MONTELUKAST NA 10 MG TABLET PO SCH (10:11)
[2023-06-21] MEDS: PATIENT'S OWN MEDICATION (NON-FORMULARY) (Omeprazole 20 MG Capsule.Dr) PO SCH (10:11)
[2023-06-21] MEDS: PRENATAL VITAMINS W/ FOLIC ACID TABLET (FP) PO SCH (10:11)
[2023-06-21] MEDS: valACYclovir HCL 500 MG TABLET (FP) PO SCH ×2 (10:12→21:20)
[2023-06-21] MEDS: RIFAXIMIN 550 MG TABLET PO SCH ×2 (10:12→21:21)
[2023-06-21] MEDS: BUDESONIDE/FORMETEROL FUMARATE 160/4.5 mcg INHALER IH SCH ×2 (10:12→22:18)
[2023-06-21] MEDS: EZETIMIBE 10 MG TABLET (FP) PO SCH (10:12)
[2023-06-21] MEDS: NICOTINE POLACRILEX 4 MG GUM BUC PRN (10:15)
[2023-06-21] MEDS: NICOTINE 21 MG/24 HOURS TOPICAL PATCH TD PRN (10:15)
[2023-06-21] MEDS: MAG HYDROX/AL HYDROX/SIMETH 30 ML UNIT-DOSE CUP PO PRN ×2 (15:36→22:16)
[2023-06-21] MEDS: ATORVASTATIN CA 20 MG TABLET (FP) PO SCH (21:21)
[2023-06-21] MEDS: hydrOXYzine PAMOATE 25 MG CAPSULE (FP) PO PRN (21:21)
[2023-06-21] MEDS: THIAMINE HCL 100 MG TABLET (FP) PO SCH (21:21)
[2023-06-21] MEDS: SUVOREXANT 10 MG TABLET PO PRN (21:22)
[2023-06-21] MEDS: INSULIN (LEVEMIR) 100 UNITS/ML UNITS SQ SCH (22:18)
[2023-06-21] MEDS: LIDOCAINE PATCH REMOVAL MC SCH (22:18)
[2023-06-22] MEDS: GABAPENTIN 300 MG CAPSULE PO SCH ×3 (06:28→21:30)
[2023-06-22] MEDS: EMPAGLIFLOZIN (JARDIANCE) 25 MG TABLET PO SCH (06:28)
[2023-06-22] MEDS: NICOTINE POLACRILEX 4 MG GUM BUC PRN ×3 (06:29→13:15)
[2023-06-22] MEDS: INSULIN SLIDING SCALE (NOVOLOG) 1 VIAL SQ SCH ×3 (06:30→16:51)
[2023-06-22] MEDS: LISINOPRIL 10 MG TABLET PO SCH (07:26)
[2023-06-22] MEDS: ABACAVIR/DOLUTEGRAVIR/LAMIVUDI (TRIUMEQ) TABLET PO SCH (07:27)
[2023-06-22] MEDS: BUDESONIDE/FORMETEROL FUMARATE 160/4.5 mcg INHALER IH SCH ×2 (09:47→21:34)
[2023-06-22] MEDS: LIDOCAINE 4% PATCH TP SCH (09:47)
[2023-06-22] MEDS: lamoTRIgine 25 MG TABLET PO SCH (09:48)
[2023-06-22] MEDS: EZETIMIBE 10 MG TABLET (FP) PO SCH (09:48)
[2023-06-22] MEDS: SULFAMETHOXAZOLE/TRIMETHOPRIM 800MG/160MG D.S. TABLET PO SCH (09:48)
[2023-06-22] MEDS: valACYclovir HCL 500 MG TABLET (FP) PO SCH ×2 (09:48→21:30)
[2023-06-22] MEDS: VENLAFAXINE HCL 75 MG E.R. CAPSULES PO SCH (09:49)
[2023-06-22] MEDS: RIFAXIMIN 550 MG TABLET PO SCH ×2 (09:49→21:35)
[2023-06-22] MEDS: MONTELUKAST NA 10 MG TABLET PO SCH (09:49)
[2023-06-22] MEDS: guaiFENesin 600 MG TABLET.ER (FP) PO SCH ×2 (09:49→21:30)
[2023-06-22] MEDS: METHYL SALICYLATE/MENTHOL OINT 30 GM TUBE TP SCH ×2 (09:49→21:29)
[2023-06-22] MEDS: PRENATAL VITAMINS W/ FOLIC ACID TABLET (FP) PO SCH (09:49)
[2023-06-22] MEDS: NICOTINE 21 MG/24 HOURS TOPICAL PATCH TD PRN (09:50)
[2023-06-22] MEDS: PATIENT'S OWN MEDICATION (NON-FORMULARY) (Omeprazole 20 MG Capsule.Dr) PO SCH (09:50)
[2023-06-22] MEDS: MAG HYDROX/AL HYDROX/SIMETH 30 ML UNIT-DOSE CUP PO PRN ×2 (11:19→19:45)
[2023-06-22] MEDS ORDERED: INSULIN (NOVOLOG) ASPART 100 UNITS/ML 10ML VIAL ONE ×3 (11:59→21:37)
[2023-06-22] MEDS: INSULIN (LEVEMIR) 100 UNITS/ML UNITS SQ SCH (21:29)
[2023-06-22] MEDS: LIDOCAINE PATCH REMOVAL MC SCH (21:29)
[2023-06-22] MEDS: THIAMINE HCL 100 MG TABLET (FP) PO SCH (21:30)
[2023-06-22] MEDS: ATORVASTATIN CA 20 MG TABLET (FP) PO SCH (21:30)
[2023-06-22] MEDS: SUVOREXANT 10 MG TABLET PO PRN (21:31)
[2023-06-22] MEDS: hydrOXYzine PAMOATE 25 MG CAPSULE (FP) PO PRN (21:31)
[2023-06-22] MEDS ORDERED: INSULIN (LEVEMIR) 100 UNITS/ML UNITS SQ ONE (21:37)
[2023-06-23] MEDS: EMPAGLIFLOZIN (JARDIANCE) 25 MG TABLET PO SCH (06:29)
[2023-06-23] MEDS: LISINOPRIL 10 MG TABLET PO SCH (06:29)
[2023-06-23] MEDS: GABAPENTIN 300 MG CAPSULE PO SCH ×3 (06:29→21:25)
[2023-06-23] MEDS ORDERED: INSULIN (NOVOLOG) ASPART 100 UNITS/ML 10ML VIAL ONE ×3 (06:31→16:35)
[2023-06-23] MEDS: NICOTINE POLACRILEX 4 MG GUM BUC PRN (06:32)
[2023-06-23] MEDS: INSULIN SLIDING SCALE (NOVOLOG) 1 VIAL SQ SCH ×3 (06:33→17:00)
[2023-06-23] MEDS: ABACAVIR/DOLUTEGRAVIR/LAMIVUDI (TRIUMEQ) TABLET PO SCH (07:38)
[2023-06-23] MEDS: BUDESONIDE/FORMETEROL FUMARATE 160/4.5 mcg INHALER IH SCH ×2 (10:18→21:25)
[2023-06-23] MEDS: valACYclovir HCL 500 MG TABLET (FP) PO SCH ×2 (10:18→21:25)
[2023-06-23] MEDS: MONTELUKAST NA 10 MG TABLET PO SCH (10:18)
[2023-06-23] MEDS: PRENATAL VITAMINS W/ FOLIC ACID TABLET (FP) PO SCH (10:18)
[2023-06-23] MEDS: VENLAFAXINE HCL 75 MG E.R. CAPSULES PO SCH (10:18)
[2023-06-23] MEDS: guaiFENesin 600 MG TABLET.ER (FP) PO SCH ×2 (10:18→21:26)
[2023-06-23] MEDS: EZETIMIBE 10 MG TABLET (FP) PO SCH (10:18)
[2023-06-23] MEDS: SULFAMETHOXAZOLE/TRIMETHOPRIM 800MG/160MG D.S. TABLET PO SCH (10:18)
[2023-06-23] MEDS: LIDOCAINE 4% PATCH TP SCH (10:19)
[2023-06-23] MEDS: PATIENT'S OWN MEDICATION (NON-FORMULARY) (Omeprazole 20 MG Capsule.Dr) PO SCH (10:19)
[2023-06-23] MEDS: METHYL SALICYLATE/MENTHOL OINT 30 GM TUBE TP SCH ×2 (10:20→21:25)
[2023-06-23] MEDS: lamoTRIgine 25 MG TABLET PO SCH (10:22)
[2023-06-23] MEDS: THIAMINE HCL 100 MG TABLET (FP) PO SCH (21:23)
[2023-06-23] MEDS: hydrOXYzine PAMOATE 25 MG CAPSULE (FP) PO PRN (21:24)
[2023-06-23] MEDS: LIDOCAINE PATCH REMOVAL MC SCH (21:25)
[2023-06-23] MEDS: ATORVASTATIN CA 20 MG TABLET (FP) PO SCH (21:25)
[2023-06-23] MEDS: SUVOREXANT 10 MG TABLET PO PRN (21:25)
[2023-06-23] MEDS: INSULIN (LEVEMIR) 100 UNITS/ML UNITS SQ SCH (21:26)
[2023-06-23] MEDS: MAG HYDROX/AL HYDROX/SIMETH 30 ML UNIT-DOSE CUP PO PRN (21:47)
[2023-06-24] MEDS: COLLOIDAL OATMEAL 1 BAR EACH TP PRN (06:19)
[2023-06-24] MEDS ORDERED: INSULIN (NOVOLOG) ASPART 100 UNITS/ML 10ML VIAL ONE ×4 (06:19→21:30)
[2023-06-24] MEDS: INSULIN SLIDING SCALE (NOVOLOG) 1 VIAL SQ SCH ×3 (06:19→16:41)
[2023-06-24] MEDS: LISINOPRIL 10 MG TABLET PO SCH (06:20)
[2023-06-24] MEDS: GABAPENTIN 300 MG CAPSULE PO SCH ×3 (06:20→21:24)
[2023-06-24] MEDS: EMPAGLIFLOZIN (JARDIANCE) 25 MG TABLET PO SCH (06:20)
[2023-06-24] MEDS: ABACAVIR/DOLUTEGRAVIR/LAMIVUDI (TRIUMEQ) TABLET PO SCH (07:11)
[2023-06-24] MEDS: VENLAFAXINE HCL 75 MG E.R. CAPSULES PO SCH (09:56)
[2023-06-24] MEDS: LIDOCAINE 4% PATCH TP SCH (09:56)
[2023-06-24] MEDS: SULFAMETHOXAZOLE/TRIMETHOPRIM 800MG/160MG D.S. TABLET PO SCH (09:56)
[2023-06-24] MEDS: BUDESONIDE/FORMETEROL FUMARATE 160/4.5 mcg INHALER IH SCH ×2 (09:56→21:26)
[2023-06-24] MEDS: lamoTRIgine 25 MG TABLET PO SCH (09:57)
[2023-06-24] MEDS: EZETIMIBE 10 MG TABLET (FP) PO SCH (09:57)
[2023-06-24] MEDS: MONTELUKAST NA 10 MG TABLET PO SCH (09:57)
[2023-06-24] MEDS: valACYclovir HCL 500 MG TABLET (FP) PO SCH ×2 (09:57→21:24)
[2023-06-24] MEDS: METHYL SALICYLATE/MENTHOL OINT 30 GM TUBE TP SCH ×2 (09:57→21:25)
[2023-06-24] MEDS: guaiFENesin 600 MG TABLET.ER (FP) PO SCH ×2 (09:58→21:24)
[2023-06-24] MEDS: DICLOFENAC SODIUM 25 MG TABLET.DR PO PRN (09:58)
[2023-06-24] MEDS: PATIENT'S OWN MEDICATION (NON-FORMULARY) (Omeprazole 20 MG Capsule.Dr) PO SCH (09:58)
[2023-06-24] MEDS: PRENATAL VITAMINS W/ FOLIC ACID TABLET (FP) PO SCH (09:58)
[2023-06-24] MEDS: NICOTINE 21 MG/24 HOURS TOPICAL PATCH TD PRN (09:59)
[2023-06-24] MEDS: NICOTINE POLACRILEX 4 MG GUM BUC PRN (09:59)
[2023-06-24] MEDS: SIMETHICONE 80 MG TAB.CHEW (FP) PO PRN ×2 (11:31→18:28)
[2023-06-24] MEDS: THIAMINE HCL 100 MG TABLET (FP) PO SCH (21:21)
[2023-06-24] MEDS: SUVOREXANT 10 MG TABLET PO PRN (21:22)
[2023-06-24] MEDS: hydrOXYzine PAMOATE 25 MG CAPSULE (FP) PO PRN (21:22)
[2023-06-24] MEDS: ATORVASTATIN CA 20 MG TABLET (FP) PO SCH (21:24)
[2023-06-24] MEDS: INSULIN (LEVEMIR) 100 UNITS/ML UNITS SQ SCH (21:24)
[2023-06-24] MEDS: LIDOCAINE PATCH REMOVAL MC SCH (21:25)
[2023-06-24] MEDS ORDERED: INSULIN (LEVEMIR) 100 UNITS/ML UNITS SQ ONE (21:31)
[2023-06-25] MEDS ORDERED: INSULIN (NOVOLOG) ASPART 100 UNITS/ML 10ML VIAL ONE ×2 (06:27→16:49)
[2023-06-25] MEDS: GABAPENTIN 300 MG CAPSULE PO SCH ×3 (06:28→21:39)
[2023-06-25] MEDS: EMPAGLIFLOZIN (JARDIANCE) 25 MG TABLET PO SCH (06:28)
[2023-06-25] MEDS: INSULIN SLIDING SCALE (NOVOLOG) 1 VIAL SQ SCH ×3 (06:29→17:05)
[2023-06-25] MEDS: LISINOPRIL 10 MG TABLET PO SCH (06:32)
[2023-06-25] MEDS: ABACAVIR/DOLUTEGRAVIR/LAMIVUDI (TRIUMEQ) TABLET PO SCH (08:32)
[2023-06-25] MEDS: valACYclovir HCL 500 MG TABLET (FP) PO SCH ×2 (09:38→21:39)
[2023-06-25] MEDS: BUDESONIDE/FORMETEROL FUMARATE 160/4.5 mcg INHALER IH SCH ×2 (09:38→23:19)
[2023-06-25] MEDS: lamoTRIgine 25 MG TABLET PO SCH (09:38)
[2023-06-25] MEDS: SULFAMETHOXAZOLE/TRIMETHOPRIM 800MG/160MG D.S. TABLET PO SCH (09:38)
[2023-06-25] MEDS: MONTELUKAST NA 10 MG TABLET PO SCH (09:38)
[2023-06-25] MEDS: PATIENT'S OWN MEDICATION (NON-FORMULARY) (Omeprazole 20 MG Capsule.Dr) PO SCH (09:38)
[2023-06-25] MEDS: EZETIMIBE 10 MG TABLET (FP) PO SCH (09:38)
[2023-06-25] MEDS: LIDOCAINE 4% PATCH TP SCH (09:38)
[2023-06-25] MEDS: VENLAFAXINE HCL 75 MG E.R. CAPSULES PO SCH (09:38)
[2023-06-25] MEDS: PRENATAL VITAMINS W/ FOLIC ACID TABLET (FP) PO SCH (09:38)
[2023-06-25] MEDS: guaiFENesin 600 MG TABLET.ER (FP) PO SCH ×2 (09:38→21:39)
[2023-06-25] MEDS: NICOTINE POLACRILEX 4 MG GUM BUC PRN ×3 (09:40→21:40)
[2023-06-25] MEDS: NICOTINE 21 MG/24 HOURS TOPICAL PATCH TD PRN (09:41)
[2023-06-25] MEDS: SIMETHICONE 80 MG TAB.CHEW (FP) PO PRN ×3 (09:42→21:39)
[2023-06-25] MEDS: METHYL SALICYLATE/MENTHOL OINT 30 GM TUBE TP SCH ×2 (09:43→21:20)
[2023-06-25] MEDS: LIDOCAINE PATCH REMOVAL MC SCH (21:20)
[2023-06-25] MEDS: INSULIN (LEVEMIR) 100 UNITS/ML UNITS SQ SCH (21:23)
[2023-06-25] MEDS: SUVOREXANT 10 MG TABLET PO PRN (21:38)
[2023-06-25] MEDS: THIAMINE HCL 100 MG TABLET (FP) PO SCH (21:39)
[2023-06-25] MEDS: ATORVASTATIN CA 20 MG TABLET (FP) PO SCH (21:39)
[2023-06-25] MEDS: hydrOXYzine PAMOATE 25 MG CAPSULE (FP) PO PRN (21:39)
[2023-06-26] MEDS: EMPAGLIFLOZIN (JARDIANCE) 25 MG TABLET PO SCH (06:49)
[2023-06-26] MEDS: GABAPENTIN 300 MG CAPSULE PO SCH ×3 (06:49→21:25)
[2023-06-26] MEDS: LISINOPRIL 10 MG TABLET PO SCH (06:55)
[2023-06-26] MEDS: INSULIN SLIDING SCALE (NOVOLOG) 1 VIAL SQ SCH ×3 (06:55→16:55)
[2023-06-26] MEDS: ABACAVIR/DOLUTEGRAVIR/LAMIVUDI (TRIUMEQ) TABLET PO SCH (07:35)
[2023-06-26] MEDS: NICOTINE 21 MG/24 HOURS TOPICAL PATCH TD PRN (09:57)
[2023-06-26] MEDS: guaiFENesin 600 MG TABLET.ER (FP) PO SCH ×2 (09:57→21:25)
[2023-06-26] MEDS: valACYclovir HCL 500 MG TABLET (FP) PO SCH ×2 (09:57→21:25)
[2023-06-26] MEDS: PRENATAL VITAMINS W/ FOLIC ACID TABLET (FP) PO SCH (09:57)
[2023-06-26] MEDS: VENLAFAXINE HCL 75 MG E.R. CAPSULES PO SCH (09:57)
[2023-06-26] MEDS: MONTELUKAST NA 10 MG TABLET PO SCH (09:57)
[2023-06-26] MEDS: EZETIMIBE 10 MG TABLET (FP) PO SCH (09:57)
[2023-06-26] MEDS: SULFAMETHOXAZOLE/TRIMETHOPRIM 800MG/160MG D.S. TABLET PO SCH (09:57)
[2023-06-26] MEDS: lamoTRIgine 25 MG TABLET PO SCH (09:57)
[2023-06-26] MEDS: BUDESONIDE/FORMETEROL FUMARATE 160/4.5 mcg INHALER IH SCH ×2 (09:58→21:57)
[2023-06-26] MEDS: LIDOCAINE 4% PATCH TP SCH (09:58)
[2023-06-26] MEDS: PATIENT'S OWN MEDICATION (NON-FORMULARY) (Omeprazole 20 MG Capsule.Dr) PO SCH (09:59)
[2023-06-26] MEDS: METHYL SALICYLATE/MENTHOL OINT 30 GM TUBE TP SCH ×2 (10:01→21:26)
[2023-06-26] MEDS ORDERED: INSULIN (NOVOLOG) ASPART 100 UNITS/ML 10ML VIAL ONE ×2 (11:40→16:29)
[2023-06-26] MEDS: NICOTINE POLACRILEX 4 MG GUM BUC PRN ×2 (12:37→21:35)
[2023-06-26] MEDS: SIMETHICONE 80 MG TAB.CHEW (FP) PO PRN ×3 (14:13→22:51)
[2023-06-26] MEDS: SUVOREXANT 10 MG TABLET PO PRN (21:21)
[2023-06-26] MEDS: THIAMINE HCL 100 MG TABLET (FP) PO SCH (21:25)
[2023-06-26] MEDS: ATORVASTATIN CA 20 MG TABLET (FP) PO SCH (21:25)
[2023-06-26] MEDS: INSULIN (LEVEMIR) 100 UNITS/ML UNITS SQ SCH (21:26)
[2023-06-26] MEDS: LIDOCAINE PATCH REMOVAL MC SCH (21:27)
[2023-06-27] MEDS: GABAPENTIN 300 MG CAPSULE PO SCH ×3 (06:21→21:34)
[2023-06-27] MEDS: LISINOPRIL 10 MG TABLET PO SCH (06:21)
[2023-06-27] MEDS: EMPAGLIFLOZIN (JARDIANCE) 25 MG TABLET PO SCH (06:22)
[2023-06-27] MEDS: INSULIN SLIDING SCALE (NOVOLOG) 1 VIAL SQ SCH ×3 (06:23→17:09)
[2023-06-27] MEDS ORDERED: INSULIN (NOVOLOG) ASPART 100 UNITS/ML 10ML VIAL ONE (06:24)
[2023-06-27] MEDS: ABACAVIR/DOLUTEGRAVIR/LAMIVUDI (TRIUMEQ) TABLET PO SCH (07:40)
[2023-06-27] MEDS: LIDOCAINE 4% PATCH TP SCH (10:02)
[2023-06-27] MEDS: VENLAFAXINE HCL 75 MG E.R. CAPSULES PO SCH (10:03)
[2023-06-27] MEDS: METHYL SALICYLATE/MENTHOL OINT 30 GM TUBE TP SCH ×2 (10:03→21:34)
[2023-06-27] MEDS: SULFAMETHOXAZOLE/TRIMETHOPRIM 800MG/160MG D.S. TABLET PO SCH (10:03)
[2023-06-27] MEDS: lamoTRIgine 25 MG TABLET PO SCH (10:04)
[2023-06-27] MEDS: guaiFENesin 600 MG TABLET.ER (FP) PO SCH ×2 (10:04→21:34)
[2023-06-27] MEDS: PATIENT'S OWN MEDICATION (NON-FORMULARY) (Omeprazole 20 MG Capsule.Dr) PO SCH (10:04)
[2023-06-27] MEDS: PRENATAL VITAMINS W/ FOLIC ACID TABLET (FP) PO SCH (10:04)
[2023-06-27] MEDS: MONTELUKAST NA 10 MG TABLET PO SCH (10:04)
[2023-06-27] MEDS: BUDESONIDE/FORMETEROL FUMARATE 160/4.5 mcg INHALER IH SCH ×2 (10:05→21:35)
[2023-06-27] MEDS: valACYclovir HCL 500 MG TABLET (FP) PO SCH ×2 (10:05→21:34)
[2023-06-27] MEDS: EZETIMIBE 10 MG TABLET (FP) PO SCH (10:05)
[2023-06-27] MEDS: NICOTINE 21 MG/24 HOURS TOPICAL PATCH TD PRN (10:11)
[2023-06-27] MEDS: NICOTINE POLACRILEX 4 MG GUM BUC PRN ×2 (10:12→22:20)
[2023-06-27] MEDS: SIMETHICONE 80 MG TAB.CHEW (FP) PO PRN (13:40)
[2023-06-27] MEDS: LIDOCAINE PATCH REMOVAL MC SCH (21:34)
[2023-06-27] MEDS: ATORVASTATIN CA 20 MG TABLET (FP) PO SCH (21:34)
[2023-06-27] MEDS: THIAMINE HCL 100 MG TABLET (FP) PO SCH (21:35)
[2023-06-27] MEDS: hydrOXYzine PAMOATE 25 MG CAPSULE (FP) PO PRN (21:38)
[2023-06-27] MEDS: SUVOREXANT 10 MG TABLET PO PRN (21:38)
[2023-06-27] MEDS: INSULIN (LEVEMIR) 100 UNITS/ML UNITS SQ SCH (22:18)
[2023-06-28] MEDS: INSULIN SLIDING SCALE (NOVOLOG) 1 VIAL SQ SCH ×3 (06:21→18:15)
[2023-06-28] MEDS ORDERED: INSULIN (NOVOLOG) ASPART 100 UNITS/ML 10ML VIAL ONE ×2 (06:22→16:56)
[2023-06-28] MEDS: GABAPENTIN 300 MG CAPSULE PO SCH ×3 (06:22→21:16)
[2023-06-28] MEDS: EMPAGLIFLOZIN (JARDIANCE) 25 MG TABLET PO SCH (06:22)
[2023-06-28] MEDS: NICOTINE POLACRILEX 4 MG GUM BUC PRN ×5 (06:23→21:18)
[2023-06-28] MEDS: LISINOPRIL 10 MG TABLET PO SCH (06:24)
[2023-06-28] MEDS: ABACAVIR/DOLUTEGRAVIR/LAMIVUDI (TRIUMEQ) TABLET PO SCH (07:43)
[2023-06-28] MEDS: LIDOCAINE 4% PATCH TP SCH (09:39)
[2023-06-28] MEDS: SULFAMETHOXAZOLE/TRIMETHOPRIM 800MG/160MG D.S. TABLET PO SCH (09:40)
[2023-06-28] MEDS: lamoTRIgine 25 MG TABLET PO SCH (09:40)
[2023-06-28] MEDS: guaiFENesin 600 MG TABLET.ER (FP) PO SCH ×2 (09:40→21:16)
[2023-06-28] MEDS: METHYL SALICYLATE/MENTHOL OINT 30 GM TUBE TP SCH ×2 (09:40→21:16)
[2023-06-28] MEDS: VENLAFAXINE HCL 75 MG E.R. CAPSULES PO SCH (09:40)
[2023-06-28] MEDS: PRENATAL VITAMINS W/ FOLIC ACID TABLET (FP) PO SCH (09:41)
[2023-06-28] MEDS: NICOTINE 21 MG/24 HOURS TOPICAL PATCH TD PRN (09:41)
[2023-06-28] MEDS: BUDESONIDE/FORMETEROL FUMARATE 160/4.5 mcg INHALER IH SCH ×2 (09:41→23:47)
[2023-06-28] MEDS: EZETIMIBE 10 MG TABLET (FP) PO SCH (09:41)
[2023-06-28] MEDS: MONTELUKAST NA 10 MG TABLET PO SCH (09:41)
[2023-06-28] MEDS: PATIENT'S OWN MEDICATION (NON-FORMULARY) (Omeprazole 20 MG Capsule.Dr) PO SCH (09:41)
[2023-06-28] MEDS: SIMETHICONE 80 MG TAB.CHEW (FP) PO PRN ×2 (11:39→18:16)
[2023-06-28] MEDS: INSULIN (LEVEMIR) 100 UNITS/ML UNITS SQ SCH (21:15)
[2023-06-28] MEDS: LIDOCAINE PATCH REMOVAL MC SCH (21:16)
[2023-06-28] MEDS: ATORVASTATIN CA 20 MG TABLET (FP) PO SCH (21:16)
[2023-06-28] MEDS: THIAMINE HCL 100 MG TABLET (FP) PO SCH (21:16)
[2023-06-28] MEDS: hydrOXYzine PAMOATE 25 MG CAPSULE (FP) PO PRN (21:16)
[2023-06-28] MEDS: SUVOREXANT 10 MG TABLET PO PRN (21:17)
[2023-06-28] MEDS: MAG HYDROX/AL HYDROX/SIMETH 30 ML UNIT-DOSE CUP PO PRN (21:18)
[2023-06-29] MEDS: GABAPENTIN 300 MG CAPSULE PO SCH ×3 (06:33→21:26)
[2023-06-29] MEDS: EMPAGLIFLOZIN (JARDIANCE) 25 MG TABLET PO SCH (06:34)
[2023-06-29] MEDS: INSULIN SLIDING SCALE (NOVOLOG) 1 VIAL SQ SCH ×3 (06:36→16:42)
[2023-06-29] MEDS: NICOTINE POLACRILEX 4 MG GUM BUC PRN ×4 (06:38→21:26)
[2023-06-29] MEDS: LISINOPRIL 10 MG TABLET PO SCH (07:01)
[2023-06-29] MEDS: ABACAVIR/DOLUTEGRAVIR/LAMIVUDI (TRIUMEQ) TABLET PO SCH (07:01)
[2023-06-29] MEDS: BUDESONIDE/FORMETEROL FUMARATE 160/4.5 mcg INHALER IH SCH ×2 (09:59→21:28)
[2023-06-29] MEDS: SULFAMETHOXAZOLE/TRIMETHOPRIM 800MG/160MG D.S. TABLET PO SCH (09:59)
[2023-06-29] MEDS: LIDOCAINE 4% PATCH TP SCH (09:59)
[2023-06-29] MEDS: MONTELUKAST NA 10 MG TABLET PO SCH (09:59)
[2023-06-29] MEDS: EZETIMIBE 10 MG TABLET (FP) PO SCH (09:59)
[2023-06-29] MEDS: lamoTRIgine 25 MG TABLET PO SCH (09:59)
[2023-06-29] MEDS: METHYL SALICYLATE/MENTHOL OINT 30 GM TUBE TP SCH ×2 (09:59→21:28)
[2023-06-29] MEDS: VENLAFAXINE HCL 75 MG E.R. CAPSULES PO SCH (09:59)
[2023-06-29] MEDS: guaiFENesin 600 MG TABLET.ER (FP) PO SCH ×2 (09:59→21:26)
[2023-06-29] MEDS: PRENATAL VITAMINS W/ FOLIC ACID TABLET (FP) PO SCH (10:00)
[2023-06-29] MEDS: PATIENT'S OWN MEDICATION (NON-FORMULARY) (Omeprazole 20 MG Capsule.Dr) PO SCH (10:00)
[2023-06-29] MEDS: NICOTINE 21 MG/24 HOURS TOPICAL PATCH TD PRN (10:00)
[2023-06-29] MEDS ORDERED: INSULIN (NOVOLOG) ASPART 100 UNITS/ML 10ML VIAL ONE ×2 (11:34→16:40)
[2023-06-29] MEDS: SIMETHICONE 80 MG TAB.CHEW (FP) PO PRN ×2 (14:05→21:31)
[2023-06-29] MEDS: MAG HYDROX/AL HYDROX/SIMETH 30 ML UNIT-DOSE CUP PO PRN ×2 (15:42→21:31)
[2023-06-29] MEDS: INSULIN (LEVEMIR) 100 UNITS/ML UNITS SQ SCH (21:24)
[2023-06-29] MEDS: LIDOCAINE PATCH REMOVAL MC SCH (21:25)
[2023-06-29] MEDS: ATORVASTATIN CA 20 MG TABLET (FP) PO SCH (21:26)
[2023-06-29] MEDS: THIAMINE HCL 100 MG TABLET (FP) PO SCH (21:26)
[2023-06-29] MEDS: hydrOXYzine PAMOATE 25 MG CAPSULE (FP) PO PRN (21:28)
[2023-06-29] MEDS: SUVOREXANT 10 MG TABLET PO PRN (21:28)
[2023-06-30] MEDS: GABAPENTIN 300 MG CAPSULE PO SCH ×3 (06:23→21:14)
[2023-06-30] MEDS: EMPAGLIFLOZIN (JARDIANCE) 25 MG TABLET PO SCH (06:23)
[2023-06-30] MEDS: INSULIN SLIDING SCALE (NOVOLOG) 1 VIAL SQ SCH ×3 (06:24→16:46)
[2023-06-30] MEDS ORDERED: INSULIN (NOVOLOG) ASPART 100 UNITS/ML 10ML VIAL ONE ×4 (06:25→23:54)
[2023-06-30] MEDS: NICOTINE POLACRILEX 4 MG GUM BUC PRN ×2 (06:25→12:22)
[2023-06-30] MEDS: LISINOPRIL 10 MG TABLET PO SCH (07:42)
[2023-06-30] MEDS: ABACAVIR/DOLUTEGRAVIR/LAMIVUDI (TRIUMEQ) TABLET PO SCH (07:42)
[2023-06-30] MEDS: guaiFENesin 600 MG TABLET.ER (FP) PO SCH ×2 (09:43→21:14)
[2023-06-30] MEDS: LIDOCAINE 4% PATCH TP SCH (09:43)
[2023-06-30] MEDS: VENLAFAXINE HCL 75 MG E.R. CAPSULES PO SCH (09:44)
[2023-06-30] MEDS: lamoTRIgine 25 MG TABLET PO SCH (09:44)
[2023-06-30] MEDS: EZETIMIBE 10 MG TABLET (FP) PO SCH (09:44)
[2023-06-30] MEDS: PATIENT'S OWN MEDICATION (NON-FORMULARY) (Omeprazole 20 MG Capsule.Dr) PO SCH (09:45)
[2023-06-30] MEDS: SULFAMETHOXAZOLE/TRIMETHOPRIM 800MG/160MG D.S. TABLET PO SCH (09:45)
[2023-06-30] MEDS: METHYL SALICYLATE/MENTHOL OINT 30 GM TUBE TP SCH ×2 (09:45→21:15)
[2023-06-30] MEDS: PRENATAL VITAMINS W/ FOLIC ACID TABLET (FP) PO SCH (09:45)
[2023-06-30] MEDS: MONTELUKAST NA 10 MG TABLET PO SCH (09:46)
[2023-06-30] MEDS: BUDESONIDE/FORMETEROL FUMARATE 160/4.5 mcg INHALER IH SCH ×2 (09:46→21:18)
[2023-06-30] MEDS: NICOTINE 21 MG/24 HOURS TOPICAL PATCH TD PRN (09:55)
[2023-06-30] MEDS: SIMETHICONE 80 MG TAB.CHEW (FP) PO PRN ×2 (09:55→18:43)
[2023-06-30] MEDS: MAG HYDROX/AL HYDROX/SIMETH 30 ML UNIT-DOSE CUP PO PRN ×2 (09:55→21:19)
[2023-06-30] MEDS: TOLNAFTATE 1% CREAM 15 GM TUBE TP SCH ×2 (11:48→21:19)
[2023-06-30] MEDS ORDERED: BISMUTH SUBSALICYLATE 524 MG/30 ML PO PRN (14:04)
[2023-06-30] MEDS ORDERED: BISMUTH SUBSALICYLATE 262 MG/15 ML BTL PO PRN (14:14)
[2023-06-30] MEDS ORDERED: BISMUTH SUBSALICYLATE 262 MG/15 ML BTL ONE (14:37)
[2023-06-30] MEDS: BISMUTH SUBSALICYLATE 262 MG/15 ML BTL PO PRN (14:39)
[2023-06-30] MEDS: THIAMINE HCL 100 MG TABLET (FP) PO SCH (21:13)
[2023-06-30] MEDS: ATORVASTATIN CA 20 MG TABLET (FP) PO SCH (21:14)
[2023-06-30] MEDS: LIDOCAINE PATCH REMOVAL MC SCH (21:14)
[2023-06-30] MEDS: hydrOXYzine PAMOATE 25 MG CAPSULE (FP) PO PRN (21:15)
[2023-06-30] MEDS: INSULIN (LEVEMIR) 100 UNITS/ML UNITS SQ SCH (21:18)
[2023-06-30] MEDS ORDERED: INSULIN (LEVEMIR) 100 UNITS/ML UNITS SQ ONE (23:54)
[2023-07-01] MEDS: BISMUTH SUBSALICYLATE 262 MG/15 ML BTL PO PRN ×2 (01:24→13:25)
[2023-07-01] MEDS: GABAPENTIN 300 MG CAPSULE PO SCH ×3 (06:08→21:49)
[2023-07-01] MEDS: EMPAGLIFLOZIN (JARDIANCE) 25 MG TABLET PO SCH (06:08)
[2023-07-01] MEDS: INSULIN SLIDING SCALE (NOVOLOG) 1 VIAL SQ SCH ×3 (06:10→16:42)
[2023-07-01] MEDS ORDERED: INSULIN (NOVOLOG) ASPART 100 UNITS/ML 10ML VIAL ONE ×3 (06:10→16:35)
[2023-07-01] MEDS: LISINOPRIL 10 MG TABLET PO SCH (06:33)
[2023-07-01] MEDS: NICOTINE POLACRILEX 4 MG GUM BUC PRN ×2 (07:03→10:04)
[2023-07-01] MEDS: ABACAVIR/DOLUTEGRAVIR/LAMIVUDI (TRIUMEQ) TABLET PO SCH (07:14)
[2023-07-01] MEDS: LIDOCAINE 4% PATCH TP SCH (09:57)
[2023-07-01] MEDS: NICOTINE 21 MG/24 HOURS TOPICAL PATCH TD PRN (09:57)
[2023-07-01] MEDS: BUDESONIDE/FORMETEROL FUMARATE 160/4.5 mcg INHALER IH SCH ×2 (09:58→23:22)
[2023-07-01] MEDS: MONTELUKAST NA 10 MG TABLET PO SCH (09:58)
[2023-07-01] MEDS: PATIENT'S OWN MEDICATION (NON-FORMULARY) (Omeprazole 20 MG Capsule.Dr) PO SCH (09:58)
[2023-07-01] MEDS: guaiFENesin 600 MG TABLET.ER (FP) PO SCH ×2 (09:58→21:50)
[2023-07-01] MEDS: VENLAFAXINE HCL 75 MG E.R. CAPSULES PO SCH (09:58)
[2023-07-01] MEDS: METHYL SALICYLATE/MENTHOL OINT 30 GM TUBE TP SCH ×2 (09:59→21:51)
[2023-07-01] MEDS: SULFAMETHOXAZOLE/TRIMETHOPRIM 800MG/160MG D.S. TABLET PO SCH (09:59)
[2023-07-01] MEDS: PRENATAL VITAMINS W/ FOLIC ACID TABLET (FP) PO SCH (09:59)
[2023-07-01] MEDS: TOLNAFTATE 1% CREAM 15 GM TUBE TP SCH ×2 (09:59→21:50)
[2023-07-01] MEDS: EZETIMIBE 10 MG TABLET (FP) PO SCH (09:59)
[2023-07-01] MEDS: lamoTRIgine 25 MG TABLET PO SCH (10:48)
[2023-07-01] MEDS: INSULIN (LEVEMIR) 100 UNITS/ML UNITS SQ SCH (21:49)
[2023-07-01] MEDS: LIDOCAINE PATCH REMOVAL MC SCH (21:50)
[2023-07-01] MEDS: ATORVASTATIN CA 20 MG TABLET (FP) PO SCH (21:50)
[2023-07-01] MEDS: THIAMINE HCL 100 MG TABLET (FP) PO SCH (21:50)
[2023-07-01] MEDS: SUVOREXANT 10 MG TABLET PO PRN (21:52)
[2023-07-01] MEDS: hydrOXYzine PAMOATE 25 MG CAPSULE (FP) PO PRN (21:52)
[2023-07-01] MEDS: SIMETHICONE 80 MG TAB.CHEW (FP) PO PRN (21:53)
[2023-07-02] MEDS ORDERED: NICOTINE POLACRILEX 4 MG GUM BUC ONE (03:11)
[2023-07-02] MEDS ORDERED: INSULIN (NOVOLOG) ASPART 100 UNITS/ML 10ML VIAL ONE ×3 (06:30→21:36)
[2023-07-02] MEDS: INSULIN SLIDING SCALE (NOVOLOG) 1 VIAL SQ SCH ×3 (06:30→16:37)
[2023-07-02] MEDS: GABAPENTIN 300 MG CAPSULE PO SCH ×3 (06:31→21:08)
[2023-07-02] MEDS: EMPAGLIFLOZIN (JARDIANCE) 25 MG TABLET PO SCH (06:31)
[2023-07-02] MEDS: NICOTINE POLACRILEX 4 MG GUM BUC PRN ×2 (06:32→09:27)
[2023-07-02] MEDS: LISINOPRIL 10 MG TABLET PO SCH (06:34)
[2023-07-02] MEDS: COLLOIDAL OATMEAL 1 BAR EACH TP PRN (06:44)
[2023-07-02] MEDS: ABACAVIR/DOLUTEGRAVIR/LAMIVUDI (TRIUMEQ) TABLET PO SCH (07:38)
[2023-07-02] MEDS: METHYL SALICYLATE/MENTHOL OINT 30 GM TUBE TP SCH ×2 (09:21→21:12)
[2023-07-02] MEDS: LIDOCAINE 4% PATCH TP SCH (09:21)
[2023-07-02] MEDS: VENLAFAXINE HCL 75 MG E.R. CAPSULES PO SCH (09:21)
[2023-07-02] MEDS: SULFAMETHOXAZOLE/TRIMETHOPRIM 800MG/160MG D.S. TABLET PO SCH (09:21)
[2023-07-02] MEDS: lamoTRIgine 25 MG TABLET PO SCH (09:22)
[2023-07-02] MEDS: guaiFENesin 600 MG TABLET.ER (FP) PO SCH ×2 (09:22→21:08)
[2023-07-02] MEDS: EZETIMIBE 10 MG TABLET (FP) PO SCH (09:23)
[2023-07-02] MEDS: PRENATAL VITAMINS W/ FOLIC ACID TABLET (FP) PO SCH (09:23)
[2023-07-02] MEDS: MONTELUKAST NA 10 MG TABLET PO SCH (09:23)
[2023-07-02] MEDS: TOLNAFTATE 1% CREAM 15 GM TUBE TP SCH ×2 (09:24→21:12)
[2023-07-02] MEDS: PATIENT'S OWN MEDICATION (NON-FORMULARY) (Omeprazole 20 MG Capsule.Dr) PO SCH (09:24)
[2023-07-02] MEDS: BUDESONIDE/FORMETEROL FUMARATE 160/4.5 mcg INHALER IH SCH ×2 (09:24→21:07)
[2023-07-02] MEDS: BISMUTH SUBSALICYLATE 262 MG/15 ML BTL PO PRN (09:26)
[2023-07-02] MEDS: NICOTINE 21 MG/24 HOURS TOPICAL PATCH TD PRN (09:27)
[2023-07-02] MEDS: MAG HYDROX/AL HYDROX/SIMETH 30 ML UNIT-DOSE CUP PO PRN (16:35)
[2023-07-02] MEDS: THIAMINE HCL 100 MG TABLET (FP) PO SCH (21:06)
[2023-07-02] MEDS: hydrOXYzine PAMOATE 25 MG CAPSULE (FP) PO PRN (21:08)
[2023-07-02] MEDS: SUVOREXANT 10 MG TABLET PO PRN (21:08)
[2023-07-02] MEDS: ATORVASTATIN CA 20 MG TABLET (FP) PO SCH (21:08)
[2023-07-02] MEDS: INSULIN (LEVEMIR) 100 UNITS/ML UNITS SQ SCH (21:11)
[2023-07-02] MEDS: LIDOCAINE PATCH REMOVAL MC SCH (21:12)
[2023-07-02] MEDS ORDERED: INSULIN (LEVEMIR) 100 UNITS/ML UNITS SQ ONE (21:36)
[2023-07-02] MEDS ORDERED: SUVOREXANT 10 MG TABLET PO PRN (22:00)
[2023-07-03] MEDS: INSULIN SLIDING SCALE (NOVOLOG) 1 VIAL SQ SCH ×3 (06:32→16:38)
[2023-07-03] MEDS ORDERED: INSULIN (NOVOLOG) ASPART 100 UNITS/ML 10ML VIAL ONE ×3 (06:32→16:37)
[2023-07-03] MEDS: GABAPENTIN 300 MG CAPSULE PO SCH ×3 (06:32→21:26)
[2023-07-03] MEDS: EMPAGLIFLOZIN (JARDIANCE) 25 MG TABLET PO SCH (06:33)
[2023-07-03] MEDS: LISINOPRIL 10 MG TABLET PO SCH (06:33)
[2023-07-03] MEDS: NICOTINE POLACRILEX 4 MG GUM BUC PRN ×4 (06:34→18:06)
[2023-07-03] MEDS: ABACAVIR/DOLUTEGRAVIR/LAMIVUDI (TRIUMEQ) TABLET PO SCH (07:33)
[2023-07-03] MEDS: SULFAMETHOXAZOLE/TRIMETHOPRIM 800MG/160MG D.S. TABLET PO SCH (09:58)
[2023-07-03] MEDS: LIDOCAINE 4% PATCH TP SCH (09:58)
[2023-07-03] MEDS: METHYL SALICYLATE/MENTHOL OINT 30 GM TUBE TP SCH ×2 (09:59→21:28)
[2023-07-03] MEDS: lamoTRIgine 25 MG TABLET PO SCH (09:59)
[2023-07-03] MEDS: VENLAFAXINE HCL 75 MG E.R. CAPSULES PO SCH (09:59)
[2023-07-03] MEDS: guaiFENesin 600 MG TABLET.ER (FP) PO SCH ×2 (09:59→21:26)
[2023-07-03] MEDS: BUDESONIDE/FORMETEROL FUMARATE 160/4.5 mcg INHALER IH SCH ×2 (10:00→21:26)
[2023-07-03] MEDS: MONTELUKAST NA 10 MG TABLET PO SCH (10:00)
[2023-07-03] MEDS: PRENATAL VITAMINS W/ FOLIC ACID TABLET (FP) PO SCH (10:00)
[2023-07-03] MEDS: PATIENT'S OWN MEDICATION (NON-FORMULARY) (Omeprazole 20 MG Capsule.Dr) PO SCH (10:00)
[2023-07-03] MEDS: EZETIMIBE 10 MG TABLET (FP) PO SCH (10:01)
[2023-07-03] MEDS: NICOTINE 21 MG/24 HOURS TOPICAL PATCH TD PRN (10:01)
[2023-07-03] MEDS: TOLNAFTATE 1% CREAM 15 GM TUBE TP SCH ×2 (10:01→21:32)
[2023-07-03] MEDS: BISMUTH SUBSALICYLATE 262 MG/15 ML BTL PO PRN (10:02)
[2023-07-03] MEDS: THIAMINE HCL 100 MG TABLET (FP) PO SCH (21:26)
[2023-07-03] MEDS: ATORVASTATIN CA 20 MG TABLET (FP) PO SCH (21:26)
[2023-07-03] MEDS: hydrOXYzine PAMOATE 25 MG CAPSULE (FP) PO PRN (21:27)
[2023-07-03] MEDS: LIDOCAINE PATCH REMOVAL MC SCH (21:28)
[2023-07-03] MEDS: INSULIN (LEVEMIR) 100 UNITS/ML UNITS SQ SCH (21:29)
[2023-07-04] MEDS: GABAPENTIN 300 MG CAPSULE PO SCH (06:20)
[2023-07-04] MEDS: LISINOPRIL 10 MG TABLET PO SCH (06:21)
[2023-07-04] MEDS: EMPAGLIFLOZIN (JARDIANCE) 25 MG TABLET PO SCH (06:21)
[2023-07-04] MEDS: INSULIN SLIDING SCALE (NOVOLOG) 1 VIAL SQ SCH (06:23)
[2023-07-04] MEDS ORDERED: INSULIN (NOVOLOG) ASPART 100 UNITS/ML 10ML VIAL ONE (06:23)
[2023-07-04] MEDS: NICOTINE POLACRILEX 4 MG GUM BUC PRN (06:29)
[2023-07-04 06:41] VITALS: RESP 16; TEMP 97.8
[2023-07-04] MEDS: ABACAVIR/DOLUTEGRAVIR/LAMIVUDI (TRIUMEQ) TABLET PO SCH (07:14)
[2023-07-04] MEDS: PRENATAL VITAMINS W/ FOLIC ACID TABLET (FP) PO SCH (09:04)
[2023-07-04] MEDS: lamoTRIgine 25 MG TABLET PO SCH (09:04)
[2023-07-04] MEDS: MONTELUKAST NA 10 MG TABLET PO SCH (09:04)
[2023-07-04] MEDS: SULFAMETHOXAZOLE/TRIMETHOPRIM 800MG/160MG D.S. TABLET PO SCH (09:04)
[2023-07-04] MEDS: VENLAFAXINE HCL 75 MG E.R. CAPSULES PO SCH (09:04)
[2023-07-04] MEDS: EZETIMIBE 10 MG TABLET (FP) PO SCH (09:04)
[2023-07-04] MEDS: guaiFENesin 600 MG TABLET.ER (FP) PO SCH (09:04)
[2023-07-04] MEDS: PATIENT'S OWN MEDICATION (NON-FORMULARY) (Omeprazole 20 MG Capsule.Dr) PO SCH (09:05)
[2023-07-04] MEDS: LIDOCAINE 4% PATCH TP SCH (09:06)
[2023-07-04] MEDS: METHYL SALICYLATE/MENTHOL OINT 30 GM TUBE TP SCH (09:07)
[2023-07-04] MEDS: BUDESONIDE/FORMETEROL FUMARATE 160/4.5 mcg INHALER IH SCH (09:07)
[2023-07-04] MEDS: TOLNAFTATE 1% CREAM 15 GM TUBE TP SCH (09:07)
[2023-07-04 11:38] VITALS: BP 102/64; PULSE 90
== END 2023-07-04 09:11 | disposition home or self-care (01) | DRG 895 ==
LOC: YASAS 13:33 → Y3E 13:37
PROVIDERS: ADMIT Allergy & Immunology; ATTEND Psychiatry & Neurology Pain Medicine
PROC: HZ42ZZZ Group Counseling for Substance Abuse Treatment, Cognitive-Behavioral (ICD-10-PCS; principal; 2023-06-14)
DX: F10.20 Alcohol dependence, uncomplicated (principal); F14.20 Cocaine dependence, uncomplicated; B20 Human immunodeficiency virus [HIV] disease; Z59.00 Homelessness unspecified; E72.20 Disorder of urea cycle metabolism, unspecified; F12.20 Cannabis dependence, uncomplicated; F17.210 Nicotine dependence, cigarettes, uncomplicated; F32.A Depression, unspecified; G62.9 Polyneuropathy, unspecified; E78.5 Hyperlipidemia, unspecified; I10 Essential (primary) hypertension; K21.9 Gastro-esophageal reflux disease without esophagitis; E11.9 Type 2 diabetes mellitus without complications; B35.3 Tinea pedis; R14.3 Flatulence; Z79.4 Long term (current) use of insulin; Z79.84 Long term (current) use of oral hypoglycemic drugs
CPT/HCPCS: 36415; 82140; 82962; 86803